=== PATIENT | female | born 1960 | race Caucasian/White ===

== ENCOUNTER 2019-04-25 12:50 | Emergency (ER) | payer MEDICARE, MEDICAID, SELFPAY ==
[2019-04-25 13:07] VITALS: BP 139/107; PULSE 97; RESP 22; O2SAT 99; BMI 21.9
--- NOTE | 2019-04-25 13:08 | W.ED.PSYCH ---
HPI - Psych General: Chief Complaint: Psychiatric Symptoms Stated Complaint: Mhe Time Seen by Provider: 04/25/19 13:08 Source: patient and family Mode of arrival: ambulatory Limitations: no limitations History of Present Illness: HPI Narrative: Patient is a 59-year-old female who presents to ED today with complaints of [id number] stress and anxiety; patient states she is currently going through a divorce and is having trouble with 1 of her apartment neighbors; she tells me she is not suicidal or homicidal; she reports auditory hallucinations that are chronic for her; they have never told her to harm herself or other people; she also has a complaint of extreme itching to her forearms and face that began today MD complaint: other (stress/anxiety ) Onset (ago): month(s) Duration: constant History of same: Yes Relieving factors: none Exacerbating factors: none Associated psychiatric symptoms: auditory hallucinations Associated symptoms: Reports auditory hallucinations; Deny visual hallucinations, depression, homicidal ideation or suicidal ideation Treatments prior to arrival: none Review of Systems Const: Denies: fever or chills Card: Denies: chest pain, palpitations, lightheadedness or syncope Resp: Denies: shortness of breath GI: Denies: abdominal pain, nausea, vomiting or diarrhea Skin/Breast: Denies: rash Neuro: Denies: headache Psych: Reports: anxiety and auditory hallucinations; Denies: depression, mood swings, hopelessness, loss of interest, visual hallucinations, suicidal ideation or homicidal ideation Physical Exam Const: COMMON NORMALS: oriented x3, alert and well nourished (appears very anxious ) GENERAL APPEARANCE: cooperative ORIENTATION/CONSCIOUSNESS: Yes oriented to person, Yes oriented to place and Yes oriented to time Neuro: ELLEN COMA SCALE: document GCS findings Ellen coma scale eye opening: Spontaneous [place] coma scale verbal response: Orientated [place] coma scale motor response: Obey commands [place] coma scale total score: 15 COMMON NORMALS: oriented x3, moves all extremities, no focal motor deficits and no sensory deficits noted SENSORIUM/ORIENTATION: Yes alert, Yes oriented to person, Yes oriented to place, Yes oriented to time and Yes orientation impaired GAIT: Yes normal gait Psych: COMMON NORMALS: thought process normal, cooperative, speech normal, activity/motor behavior normal (uncontrollably scratching her arms/face), denies homicidal ideation and denies suicidal ideation APPEARANCE: Yes unkempt ATTITUDE: Yes engaged ACTIVITY/MOTOR BEHAVIOR: Yes appropriate eye contact SPEECH: Yes normal speech THOUGHT PROCESS: normal thought process ATTENTION/CONCENTRATION: Yes attention grossly intact MEMORY/COGNITION: Yes memory grossly intact INSIGHT: insight good Skin: NARRATIVE SKIN EXAM: pt is uncontrollably itching her face and forearms; diffuse excoriations noted; no distinguishable rash MDM - Psych MDM Narrative: Medical decision making narrative: during our exam I mentioned that most likely we will not be able to send pt to [facility] based on her complaint of stress/anxiety; explained to her that she would not meet inpatient criteria but that we would be more than happy to treat her anxiety and her itching here in the ED; patient became aggravated and walked out of the room and left AMA Discharge Plan Discharge Patient Disposition: Left Against Medical Advice Condition: Stable Referrals: Romel Phillips APN [Family Provider] - Coding Level of Care Code ED Laser Cutter for Dario Gilbert Exam Problem Focused
== END 2019-04-25 13:18 | disposition left against medical advice (07) ==
LOC: ER 19:53
PROVIDERS: Emergency Provider Emergency Medicine; Family Provider Nurse Practitioner Family
DX: F41.9 Anxiety disorder, unspecified (principal); Z53.21 Procedure and treatment not carried out due to patient leaving prior to being seen by health care provider
CPT/HCPCS: 99281

== ENCOUNTER → 2019-05-16 11:10 | Outpatient (BNVA) | payer MEDICARE, MEDICAID, SELFPAY | PROVIDERS: Family Provider Nurse Practitioner Family; Visit Provider Nurse Practitioner | DX: F10.21 Alcohol dependence, in remission (principal); F43.12 Post-traumatic stress disorder, chronic; F17.220 Nicotine dependence, chewing tobacco, uncomplicated | CPT/HCPCS: 99214 ==

== ENCOUNTER 2019-06-16 08:01 | Emergency (ER) | payer MEDICARE, MEDICAID, SELFPAY ==
[2019-06-16 08:17] VITALS: BMI 23.3
[2019-06-16 08:19] VITALS: BP 102/68; PULSE 77; RESP 16; TEMP 36.8; O2SAT 98
--- NOTE | 2019-06-16 08:28 | ED_ITS ---
Entered by Saeed White, acting as scribe for Jun 16, 2019 08:01 HPI - General Adult General: Chief complaint: General Medical Stated complaint: FALL, AMS Time Seen by Provider: 06/16/19 08:52 History of Present Illness: HPI narrative: 59 yo female presents with altered mental status and fall. Pt states that she fell at about 11pm last night. Pt states that she isn't sure if she lost consciousness. Pt states that she hit her head, back and right rib pain. Pt states that she has fallen many times in the past. Pt states that she is seeing and hearing things that are not there. Pt states that she isn't doing too well right now. Pt states that she is taking all of her medications appropriately. MD complaint: altered mental status and fall Onset (ago): hour(s) Location: head and back Radiation: non-radiation Severity: mild Quality: aching Pain Consistency: constant Relieving factors: none Exacerbating factors: movement Associated symptoms: Reports headache(s); Deny chest pain, dyspnea, malaise, nausea, rash or vomiting Review of Systems Const: Denies: fever, chills, body aches, change in appetite, fatigue or malaise ENMT: Denies: throat pain, ear pain, nasal discharge or nasal congestion Card: Denies: chest pain, edema, shortness of breath on exertion or shortness of breath when lying down Resp: Denies: shortness of breath, productive cough or non-productive cough GI: Denies: abdominal pain, nausea, vomiting, vomiting blood, coffee grounds in vomit, diarrhea, constipation, bloating, blood in stool or black tarry stool : Denies: flank pain, difficulty urinating, painful urination, urinary frequency or urinary urgency Musc: Reports: back pain Skin/Breast: Denies: rash or itching Neuro: Reports: headache PFSH ED 2 PFSH: Medical History Alcohol dependence, in remission Nicotine dependence, chewing tobacco, uncomplicated Post-traumatic stress disorder, chronic Social History (Updated 05/16/19 @ 11:24 by Lucretia Pacheco LPN) Smoking and tobacco status: never smoked Alcohol intake: current Alcohol type: beer Desire information about alcohol rehabilitation?: No Last alcohol use date: 05/16/19 Physical Exam Const: COMMON NORMALS: no apparent distress GENERAL APPEARANCE: cooperative and comfortable ORIENTATION/CONSCIOUSNESS: Yes awake, Yes oriented to person, Yes oriented to place and Yes oriented to time HENMT: COMMON NORMALS: normocephalic, head/scalp atraumatic, hearing grossly normal bilaterally, external ears normal, EAC's normal, TM's normal bilaterally, nasal mucous membranes and turbinates normal, moist oral mucous membranes and oropharynx normal HEAD & SCALP: normocephalic and atraumatic NOSE: nasal mucous membranes and turbinates normal EXTERNAL EAR: Yes external ears normal EXTERNAL AUDITORY CANAL: EAC's normal TYMPANIC MEMBRANE: TM's normal bilaterally Eye: COMMON NORMALS: PERRL, EOMs intact bilaterally, conjunctivae normal and no scleral icterus CONJUNCTIVA: Yes conjunctivae normal PUPIL: Yes PERRL Neck/C-Spine: COMMON NORMALS: full ROM, no lymphadenopathy, supple and no JVD Lymph: LYMPHATIC: no lymphadenopathy noted and no lymphedema noted Resp: COMMON NORMALS: normal respiratory effort, no retractions, no use of accessory muscles and clear to auscultation bilaterally AUSCULTATION: clear to auscultation bilaterally Cardio: COMMON NORMALS: no JVD, regular rate, regular rhythm and no murmurs RATE: regular rate RHYTHM: regular rhythm GI: COMMON NORMALS: soft to palpation and no hepatosplenomegaly AUSCULTATION: Yes normoactive bowel sounds PALPATION: Yes soft, No tender, No guarding and Yes no hepatosplenomegaly Extremity: COMMON NORMALS: normal to inspection, normal capillary refill, no clubbing, cyanosis or edema, no calf tenderness and no pedal edema Neuro: SENSORIUM/ORIENTATION: Yes oriented to person, Yes oriented to place and Yes oriented to time Skin: COMMON NORMALS: no rashes or lesions noted GENERAL SKIN EXAM: no rashes or lesions noted Course ED course: Reviewed findings with patient she is acutely intoxicated but otherwise exam is normal. We will go and discharge her home strongly encouraged her to stop drinking. Return if has problems Vital Signs: Vital signs: Vital Signs Temperature 98.2 F 06/16/19 08:19 Pulse Rate 78 06/16/19 10:57 Respiratory Rate 16 06/16/19 10:57 Blood Pressure 100/61 06/16/19 10:57 Pulse Oximetry 97 06/16/19 10:57 [facility] - General Adult Lab Data: Labs: Lab Results 06/16/19 06/16/19 06/16/19 Range/Units 08:55 08:55 10:10 WBC 5.0 (4.0-10.0) 10^3/ uL RBC 3.63 L (4.1-5.3) 10^6/u L Hgb 10.7 L (11.5-15.3) g/dL Hct 34.4 L (37.0-47.0) % MCV 94.8 (81-99) fL MCH 29.5 (28.0-34.0) pg MCHC 31.1 (30.0-36.0) g/dL RDW 13.2 (12.1-15.1) % Plt Count 343 (130-400) 10^3/c mm MPV 8.7 (7.4-10.4) fL Neut % (Auto) 46.7 % Lymph % (Auto) 44.3 % Carroll % (Auto) 6.4 % Eos % (Auto) 1.6 % Baso % (Auto) 0.8 % Neut # (Auto) 2.3 (1.8-7.7) 10^3/u L Lymph # (Auto) 2.2 (0.8-4.8) 10^3/u L Carroll # (Auto) 0.3 (0.2-0.9) 10^3/u L Eos # (Auto) 0.1 (0.0-0.8) 10^3/u L Baso # (Auto) 0.0 (0.0-0.1) 10^3/u L Nucleated RBC % (a uto) 0 % Nucleated RBCs # 0.0 /100WBC Sodium 141 (136-145) mmol/L Potassium 4.5 (3.5-5.1) mmol/L Chloride 107 (98-107) mmol/L Carbon Dioxide 24 (22-29) mmol/L Anion Gap 14.5 (5-19) BUN 6 L (8-23) mg/dL Creatinine 0.7 (0.5-0.9) mg/dL GFR Calculation 85.1 L (90-130) mL/min Glucose 114 (65-115) mg/dL Calcium 11.2 H (8.5-10.5) mg/dL Total Bilirubin 0.2 (0.15-1.2) mg/dL AST 25 (0-32) U/L ALT 21 (0-33) U/L Alkaline Phosphata se 116 H (35-105) IU/L Total Protein 7.5 (6.6-8.7) g/dL Albumin 4.0 (3.5-5.2) g/dL Globulin 3.5 (1.3-4.6) g/dL TSH 2.49 (0.27-4.20) uIU/ mL Urine Color Straw (Yellow) Urine Appearance Clear (CLEAR) Urine pH 5.0 (5-7) Ur Specific Gravit y 1.005 (1.005-1.030) Urine Protein Neg (Negative) Urine Glucose (UA) Norm (Normal) Urine Ketones Negative (Negative) Urine Blood Neg (Negative) Urine Nitrate Negative (Negative) Urine Bilirubin Neg (NEGATIVE) Urine Urobilinogen Norm (Negative) mg/dL Ur Leukocyte Breana ase Negative (Negative) Urine Opiates Scre en (Negative) ng/mL Acetaminophen < 5.0 L (10-30) ug/mL Ur Barbiturates Sc reen (Negative) ng/mL Ur Phencyclidine S crn (Negative) ng/mL Ur Amphetamines Sc reen (Negative) ng/mL U Benzodiazepines Scrn (Negative) ng/mL Urine Cocaine Scre en (Negative) ng/mL U Marijuana (THC) Screen (Negative) ng/mL Ethyl Alcohol 220 H (0-10) mg/dL 06/16/19 Range/Units 10:10 WBC (4.0-10.0) 10^3/ uL RBC (4.1-5.3) 10^6/u L Hgb (11.5-15.3) g/dL Hct (37.0-47.0) % MCV (81-99) fL MCH (28.0-34.0) pg MCHC (30.0-36.0) g/dL RDW (12.1-15.1) % Plt Count (130-400) 10^3/c mm MPV (7.4-10.4) fL Neut % (Auto) % Lymph % (Auto) % Carroll % (Auto) % Eos % (Auto) % Baso % (Auto) % Neut # (Auto) (1.8-7.7) 10^3/u L Lymph # (Auto) (0.8-4.8) 10^3/u L Carroll # (Auto) (0.2-0.9) 10^3/u L Eos # (Auto) (0.0-0.8) 10^3/u L Baso # (Auto) (0.0-0.1) 10^3/u L Nucleated RBC % (a uto) % Nucleated RBCs # /100WBC Sodium (136-145) mmol/L Potassium (3.5-5.1) mmol/L Chloride (98-107) mmol/L Carbon Dioxide (22-29) mmol/L Anion Gap (5-19) BUN (8-23) mg/dL Creatinine (0.5-0.9) mg/dL GFR Calculation (90-130) mL/min Glucose (65-115) mg/dL Calcium (8.5-10.5) mg/dL Total Bilirubin (0.15-1.2) mg/dL AST (0-32) U/L ALT (0-33) U/L Alkaline Phosphata se (35-105) IU/L Total Protein (6.6-8.7) g/dL Albumin (3.5-5.2) g/dL Globulin (1.3-4.6) g/dL TSH (0.27-4.20) uIU/ mL Urine Color (Yellow) Urine Appearance (CLEAR) Urine pH (5-7) Ur Specific Gravit y (1.005-1.030) Urine Protein (Negative) Urine Glucose (UA) (Normal) Urine Ketones (Negative) Urine Blood (Negative) Urine Nitrate (Negative) Urine Bilirubin (NEGATIVE) Urine Urobilinogen (Negative) mg/dL Ur Leukocyte Breana ase (Negative) Urine Opiates Scre en Negative (Negative) ng/mL Acetaminophen (10-30) ug/mL Ur Barbiturates Sc reen Negative (Negative) ng/mL Ur Phencyclidine S crn Negative (Negative) ng/mL Ur Amphetamines Sc reen Negative (Negative) ng/mL U Benzodiazepines Scrn Negative (Negative) ng/mL Urine Cocaine Scre en Negative (Negative) ng/mL U Marijuana (THC) Screen Negative (Negative) ng/mL Ethyl Alcohol (0-10) mg/dL Discharge Plan Discharge Patient Disposition: Home, Self-Care Clinical Impression: Acute alcohol intoxication Condition: Stable Prescriptions: No Action clonidine HCl 0.1 mg tablet 0.1 mg PO DIRECTED PRN (Reason: unknown) RF: 0 pantoprazole 40 mg tablet,delayed release (DR/EC) 40 mg PO DAILY RF: 0 aspirin [Adult Aspirin Regimen] 81 mg tablet,delayed release (DR/EC) 81 mg PO DAILY RF: 0 venlafaxine [Effexor XR] 75 mg capsule,extended release 24hr 75 mg PO QAM Qty: 30 RF: 2 venlafaxine [Effexor XR] 150 mg capsule,extended release 24hr 150 mg PO QAM Qty: 30 RF: 2 Latuda 80 mg tablet 80 mg PO QAM Qty: 30 RF: 2 Zofran 4 mg Tablet 4 mg PO Q4H PRN (Reason: Nausea) RF: 0 hydroxyzine HCl 50 mg tablet 25 - 50 mg PO Q6H PRN (Reason: unknown) RF: 0 cyproheptadine 4 mg tablet 4 mg PO BEDTIME RF: 0 folic acid 1 mg Tablet 1 mg PO DAILY RF: 0 Hair,Skin and Nails Tablet 1 tab PO DAILY RF: 0 Flonase Allergy Relief 50 mcg/actuation [place],Suspension 2 spray INTRANASAL DAILY RF: 0 estradiol 0.1 mg/24 hr patch weekly 1 patch transdermal Q7D RF: 0 prazosin 2 mg Capsule 2 mg PO BEDTIME RF: 0 naproxen 500 mg Tablet 500 mg PO BID PRN (Reason: Pain) RF: 0 olmesartan 40 mg Tablet 40 mg PO DAILY RF: 0 Vitamin D3 25 mcg (1,000 unit) Tablet 1,000 unit PO DAILY RF: 0 Calcium 500 With D 500 mg(1,250mg) -400 unit Tablet 1 tab PO DAILY RF: 0 Symbicort 160-4.5 mcg/actuation Hfa Aerosol Inhaler 2 puff INHALATION BID RF: 0 biotin 1 tab PO DAILY RF: 0 vitamin K 100 mcg PO DAILY RF: 0 Lamictal 200 mg tablet 200 mg PO DAILY RF: 0 naltrexone 50 mg tablet 50 mg PO DAILY RF: 0 Discharge Orders: Discharge Order (Routine); Ordered 06/16/19 Ordered By: Ash Gonzalez Referrals: Sari Regalado MD [Primary Care Provider] - Jacqueline,Urena, [employer] PSYCHOLOGIST [Family Provider] - Discharge Diet: Usual diet Discharge Activity: Increase activity as tolerated Activity Restrictions/Additional Instructions: Avoid alcohol use. Continue previously prescribed medications. Follow-up as needed if having worsening or change or problems return to the emergency room Discharge Date/Time: 06/16/19 10:58 Coding Level of Care Code ED Sifting Operator for Chg Fwd Exam Comprehensive The documentation recorded by the Christopher stratton Kialy, accurately reflects the service I personally performed and the decisions made by Carlos york Curtis L, Jun 16, 2019 08:01
[2019-06-16 09:00] VITALS: O2SAT 98
--- NOTE | 2019-06-16 09:21 | XR_ITS ---
WS: [id number] Chest with right rib detail, 06/16/2019 Clinical Data: fall rib pain Comparison: Portable chest, 03/16/2019. Findings: The lungs show no nodules, masses, or effusions. The heart is normal. No pneumonia or pneumothorax is seen. There is a dextroscoliosis of the thoracic spine. The ribs are intact. No rib fractures seen. No subcutaneous emphysema is present. No pneumothorax is present. XR/XR ribs RT mn 3V w CXR1V [id number] Impression: Negative chest with right rib detail.
--- NOTE | 2019-06-16 09:21 | CT_ITS ---
WS: [id number] CT scan of the head, 06/16/2019 Clinical Data: fall, closed head injury, LOC Comparison: CT head, 06/11/2017. DLP: 650.[address] scans at [facility] use at least one of these dose optimization techniques: automat ed exposure control; mA and/or kV adjustment per patient size (includes targeted exams where dose is matched to clinical indication); or iterative reconstruction. Findings: The ventricular system is mildly dilated without shift. No recent infarct or hemorrhage is seen. Ther e are no abnormal intracerebral masses. The cerebellum and brainstem are not remarkable. Bony windows of the skull and skull base show no fractures or erosions. The mastoid air cells, culinary intern al auditory canals, sella turcica, intraorbital contents, and paranasal sinuses are unremarkable. CT/CT head wo con* [id number] Impression: Negative CT scan of the head
--- NOTE | 2019-06-16 09:21 | XR_ITS ---
WS: [id number] Right arm and humerus, 2 views, 06/16/2019 Clinical Data: fall arm pain Comparison: None. Findings: No fractures or dislocations are seen. The shaft of the humerus is intact. XR/[place] [id number] Impression: Negative right arm and humerus.
[2019-06-16 09:38] LABS: Basophils % 0.8 %; Eosinophils # 0.1 10^3/uL (0.0-0.8); Eosinophils % 1.6 %; Hematocrit 34.4 % (37.0-47.0); Hemoglobin 10.7 g/dL (11.5-15.3); Lymphocytes # 2.2 10^3/uL (0.8-4.8); Lymphocytes % 44.3 %; Mean Corpuscular HGB Conc 31.1 g/dL (30.0-36.0); Mean Corpuscular Hemoglobin 29.5 pg (28.0-34.0); Mean Corpuscular Volume 94.8 fL (81-99); Mean Platelet Volume 8.7 fL (7.4-10.4); Monocytes # 0.3 10^3/uL (0.2-0.9); Monocytes % 6.4 %; Neutrophils # 2.3 10^3/uL (1.8-7.7); Neutrophils % 46.7 %; Nucleated Red Blood Cells % 0 %; Platelet Count 343 10^3/cmm (130-400); Red Blood Count 3.63 10^6/uL (4.1-5.3); Red Cell Distribution Width 13.2 % (12.1-15.1)
[2019-06-16 09:50] LABS: Alanine Aminotransferase 21 U/L (0-33); Alcohol Level 220 mg/dL (0-10); Alkaline Phosphatase 116 IU/L (35-105); Anion Gap 14.5 (5-19); Aspartate Amino Transferase 25 U/L (0-32); Blood Urea Nitrogen 6 mg/dL (8-23); Calcium 11.2 mg/dL (8.5-10.5); Carbon Dioxide 24 mmol/L (22-29); Chloride 107 mmol/L (98-107); Globulin 3.5 g/dL (1.3-4.6); Glomerular Filtration Rate 85.1 mL/min (90-130); Glucose 114 mg/dL (65-115); Potassium 4.5 mmol/L (3.5-5.1); Sodium 141 mmol/L (136-145); Thyroid Stimulating Hormone 2.49 uIU/mL (0.27-4.20); Total Bilirubin 0.2 mg/dL (0.15-1.2); Total Protein 7.5 g/dL (6.6-8.7)
[2019-06-16 09:51] LABS: Acetaminophen < 5.0 ug/mL (10-30)
[2019-06-16 10:22] LABS: Add Urine Microscopic? NO
[2019-06-16 10:33] LABS: Bilirubin Urine Neg (NEGATIVE); Blood Urine Neg (Negative); Glucose Urine UA Norm (Normal); Ketones Urine Negative (Negative); Leukocyte Esterase Urine Negative (Negative); Nitrate Urine Negative (Negative); Protein Urine Neg (Negative); Specific Gravity, Urine 1.005 (1.005-1.030); Urine Appearance Clear (CLEAR); Urine Color Straw (Yellow); Urobilinogen Urine Norm (Negative)
[2019-06-16 10:54] LABS: Amphetamines Screen Urine Negative (Negative); Barbiturates Screen Urine Negative (Negative); Benzodiazepines Screen Urine Negative (Negative); Cocaine Screen Urine Negative (Negative); Opiate Screen Urine Negative (Negative); PCP Screen Urine Negative (Negative); THC Screen Urine Negative (Negative)
[2019-06-16 10:57] VITALS: BP 100/61; PULSE 78; RESP 16; O2SAT 97
== END 2019-06-16 10:58 | disposition home or self-care (01) ==
PROVIDERS: Emergency Provider Family Medicine; Family Provider Nurse Practitioner Family; PCP Family Medicine
DX: F10.129 Alcohol abuse with intoxication, unspecified (principal); Z87.891 Personal history of nicotine dependence; Z91.81 History of falling
CPT/HCPCS: 70450; 71101; 73060; 80053; 80307; 81003; 84443; 85025; 99283; A9270

== ENCOUNTER → 2019-09-27 07:39 | Outpatient (BNVA) | payer MEDICARE, MEDICAID, SELFPAY | PROVIDERS: Family Provider Nurse Practitioner Family; PCP Family Medicine; Visit Provider Nurse Practitioner | DX: F43.12 Post-traumatic stress disorder, chronic (principal); F17.220 Nicotine dependence, chewing tobacco, uncomplicated; F10.21 Alcohol dependence, in remission; F41.1 Generalized anxiety disorder | CPT/HCPCS: 99213 ==

== ENCOUNTER → 2020-04-03 09:59 | Outpatient (BNVA) | payer MEDICARE, MEDICAID, SELFPAY | PROVIDERS: Family Provider Nurse Practitioner Family; PCP Family Medicine; Visit Provider Nurse Practitioner | DX: F43.12 Post-traumatic stress disorder, chronic (principal); F10.21 Alcohol dependence, in remission; F17.220 Nicotine dependence, chewing tobacco, uncomplicated | CPT/HCPCS: 99214 ==

== ENCOUNTER → 2020-06-11 07:30 | Outpatient (BNVA) | payer MEDICARE, MEDICAID, SELFPAY | PROVIDERS: Family Provider Nurse Practitioner Family; PCP Family Medicine; Visit Provider Nurse Practitioner | DX: F43.12 Post-traumatic stress disorder, chronic (principal); F10.21 Alcohol dependence, in remission; F17.220 Nicotine dependence, chewing tobacco, uncomplicated | CPT/HCPCS: 99214 ==

== ENCOUNTER → 2020-11-01 08:55 | Outpatient (BNVA) | payer MEDICARE, MEDICAID, SELFPAY | PROVIDERS: Family Provider Nurse Practitioner Family; PCP Family Medicine; Visit Provider Nurse Practitioner | DX: F43.12 Post-traumatic stress disorder, chronic (principal); F17.220 Nicotine dependence, chewing tobacco, uncomplicated; F10.21 Alcohol dependence, in remission | CPT/HCPCS: 99214 ==

== ENCOUNTER 2021-01-19 07:42 | Outpatient (CLI) | payer MEDICARE, MEDICAID, SELFPAY ==
--- NOTE | 2021-01-19 07:51 | US_ITS ---
WS: [id number] Complete ABDOMINAL ULTRASOUND HISTORY: ELEVATED LIVER ENZYMES COMPARISON: None available. Liver: 13.2 cm in length. Liver is normal size and echogenicity with no mass or intrahepatic dilatati on. Gallbladder: Normally distended with no gallstones, wall thickening or pericholecystic fluid. Gallbladder wall thickness: 0.2 cm. Pancreas: Normal size and echogenicity. CBD: 0.2 cm. Right kidney: 10.1 cm x 3.4 cm x 4.8 cm. No mass, cortical thickening or hydronephrosis. Left kidney: 9.8 cm x 4.4 cm x 4.3 cm. No mass, cortical thickening or hydronephrosis. Spleen: Normal size and echogenicity. Abdominal aorta and IVC are within normal limits. No ascites. US/US abdomen complete* [id number] IMPRESSION: Normal complete abdomen ultrasound.
== END 2021-01-19 07:43 | disposition home or self-care (01) ==
PROVIDERS: PCP Nurse Practitioner Family; Visit Provider Nurse Practitioner Family
DX: R94.5 Abnormal results of liver function studies (principal); F10.10 Alcohol abuse, uncomplicated
CPT/HCPCS: 76700

== ENCOUNTER → 2021-05-06 08:04 | Outpatient (BNVA) | payer MEDICARE, MEDICAID, SELFPAY | PROVIDERS: PCP Nurse Practitioner Family; Visit Provider Nurse Practitioner | DX: F43.12 Post-traumatic stress disorder, chronic (principal); F17.220 Nicotine dependence, chewing tobacco, uncomplicated; F10.21 Alcohol dependence, in remission | CPT/HCPCS: 99214 ==

== ENCOUNTER → 2021-08-05 07:24 | Outpatient (BNVA) | payer MEDICARE, MEDICAID, SELFPAY | PROVIDERS: PCP Nurse Practitioner Family; Visit Provider Nurse Practitioner | DX: F43.12 Post-traumatic stress disorder, chronic (principal); F10.21 Alcohol dependence, in remission; F17.220 Nicotine dependence, chewing tobacco, uncomplicated | CPT/HCPCS: 99214 ==

== ENCOUNTER 2021-09-12 11:41 | Outpatient (CLI) | payer MEDICARE, MEDICAID, SELFPAY ==
--- NOTE | 2021-09-12 11:52 | US_ITS ---
WS: [id number] Complete ABDOMINAL ULTRASOUND HISTORY: ELEVATED LIVER ENZYMES/ALCOHOL ABUSE COMPARISON: 2020 Liver: 12.6 cm in length. Liver is normal size and echogenicity with no mass or intrahepatic dilatati on. Portal Vein: Not well visualized. Limited Doppler evaluation. Gallbladder: Normally distended with no gallstones, wall thickening or pericholecystic fluid. Gallbladder wall thickness: 0.1 cm. Pancreas: Tail is obscured by bowel gas. Head and body are negative. CBD: 0.3 cm. Right kidney: 10.9 cm x 5.1 cm x 5.8 cm. No mass, cortical thickening or hydronephrosis. Left kidney: 9.9 cm x 4.6 cm x 4.5 cm. No mass, cortical thickening or hydronephrosis. Spleen: Partially visualized. Obscured by bowel gas. Abdominal aorta and IVC are within normal limits. No ascites. US/US abdomen complete* [id number] IMPRESSION: 1. Normal gallbladder. 2. Limited visualization of the portal vein, pancreas and spleen. 3. Otherwise negative.
== END 2021-09-12 11:42 | disposition home or self-care (01) ==
PROVIDERS: PCP Nurse Practitioner Family; Visit Provider Nurse Practitioner Family
DX: R79.89 Other specified abnormal findings of blood chemistry (principal); F10.10 Alcohol abuse, uncomplicated
CPT/HCPCS: 76700

== ENCOUNTER 2021-09-19 08:35 | Outpatient (CLI) | payer MEDICARE, MEDICAID, SELFPAY ==
--- NOTE | 2021-09-19 08:54 | XRR_ITS ---
PROCEDURE INFORMATION: Exam: XR Lumbosacral Spine Exam date and time: 09/19/2021 9:06 AM Age: 61 years old Clinical indication: Pain; Lumbago with sciatica; Right; Additional info: Acute right sided low back pain w/r sided sciatica TECHNIQUE: Imaging protocol: XR of the lumbosacral spine. Views: 2 or 3 views. COMPARISON: [place] [id number] 06/11/2017 3:06 AM FINDINGS: Bones/joints: Spinal alignment is normal. There are subtle chronic compression deformities of L5 and L2, stable since 2018. No acute fracture. There is mild multilevel facet spondylosis. Moderate lower lumbar degenerative disc disease. The visible portion of the pelvis and sacrum is intact. Soft tissues: Visible soft tissues are unremarkable. XR/XR lumbar spine 2-3V* [id number] IMPRESSION: Lumbar disc and facet degeneration similar to the findings on 06/11/2017.
--- NOTE | 2021-09-19 09:11 | XRR_ITS ---
PROCEDURE INFORMATION: Exam: XR Right Hip Exam date and time: 09/19/2021 9:13 AM Age: 61 years old Clinical indication: Hip pain; Right hip; Additional info: Right hip pain TECHNIQUE: Imaging protocol: XR Right hip. Views: 1 view hip with pelvis when performed. COMPARISON: CT Chest/Abdomen/Pelvis w IV* 06/11/2017 3:11 AM FINDINGS: Bones/joints: Alignment is normal. Joint spaces are preserved. No osteophytes. No acute fracture. The visible portion of the pelvis and sacrum is intact. Soft tissues: Visible soft tissues are unremarkable. XR/XR hip RT 2-3V wo/w pel* [id number] IMPRESSION: No pathologic findings.
== END 2021-09-19 08:36 | disposition home or self-care (01) ==
LOC: RAD 08:37
PROVIDERS: PCP Nurse Practitioner Family; Visit Provider Nurse Practitioner Family
DX: M25.551 Pain in right hip (principal); M54.41 Lumbago with sciatica, right side
CPT/HCPCS: 72100; 73502

== ENCOUNTER → 2021-09-26 07:50 | Outpatient (BNVA) | payer MEDICARE, MEDICAID, SELFPAY | PROVIDERS: PCP Nurse Practitioner Family; Referring Provider Nurse Practitioner Family; Visit Provider Orthopaedic Surgery | DX: M48.062 Spinal stenosis, lumbar region with neurogenic claudication (principal); M85.88 Other specified disorders of bone density and structure, other site; M43.16 Spondylolisthesis, lumbar region | CPT/HCPCS: 72120; 99204 ==

== ENCOUNTER 2021-09-30 09:47 | Observation (INO) | payer MEDICARE, MEDICAID, SELFPAY ==
[2021-09-30] VITALS (9 sets, daily range): BP systolic 91–127; BP diastolic 60–81; PULSE 65–79; RESP 12–18; TEMP 36.4–37; O2SAT 97–100; BMI 24.8
--- NOTE | 2021-09-30 10:10 | W.ED.GIBLEED ---
Documented by User: MINOO Drummond 09/30/21 13:52 HPI - GI Bleed General: Chief complaint: GI Bleed Stated complaint: Says she had rectal bleeding Time Seen by Provider: 09/30/21 10:00 Source: patient Mode of arrival: ambulatory Limitations: no limitations History of Present Illness: Patient is a 61-year-old female presents to ED today along with her daughter for concerns of rectal bleeding. Patient states she has had minimal rectal bleeding over the past week or so. She met with her primary care provider last week who scheduled her for colonoscopy. This has been scheduled for 10/16. She states over the past 4 days bleeding has increased and now describes as bright red blood and quantifies as 6-10 ounces per stooling and states she is having approximately 4 of these a day. Patient does describe some minimal generalized abdominal discomforts that are intermittent and crampy in nature. Patient is not having any rectal pain. She has not noticed any masses or bulges. Patient is not running fevers. She does have a history of previous colon polyp removals that were benign. She does have a history of diverticulitis. Reports previous GI/gastric bleed 8 years ago that presented with epigastric pain and dark tarry stools. She states she takes Prilosec and Protonix daily. MD complaint: gross hematochezia Onset (ago): day(s) Severity: mild Exacerbating factors: bowel movement Context: history of GI bleed Associated symptoms: Reports abdominal pain and nausea; Denies chills, fever(s), headache(s), malaise, rash, syncope or vomiting Treatments Prior to Arrival: none Review of Systems Const: Denies: fever(s), chills, body aches, fatigue or malaise Eyes: Denies: change in vision or blurry vision Card: Denies: chest pain, palpitations, irregular heart rhythm, lightheadedness, syncope or dyspnea on exertion Resp: Denies: dyspnea, productive cough or pain on inspiration GI: Reports: abdominal pain, nausea, GI cramping and hematochezia; Denies: vomiting, hematemesis, heartburn, diarrhea, constipation, rectal pain, rectal swelling, rectal itching, melena, white/light colored stool or steatorrhea : Denies: flank pain, dysuria or hematuria Musc: Denies: neck pain, back pain or joint pain Skin/Breast: Denies: rash Neuro: Denies: headache(s) or dizziness PFSH ED PFSH: Medical History (Updated 09/30/21 @ 15:58 by Ralf De Souza MD) Alcohol dependence, in remission Lumbar stenosis with neurogenic claudication Lyme disease Nicotine dependence, chewing tobacco, uncomplicated Post-traumatic stress disorder, chronic Rectal bleeding Family History (Updated 09/30/21 @ 15:58 by Ralf De Souza MD) Other Cancer Crohn disease Social History (Updated 09/30/21 @ 15:59 by Ralf De Souza MD) Smoking and tobacco status: current every day smoker smokeless tobacco Smokeless tobacco user: chewing tobacco Smokeless tobacco details: 3x per day Quit status (tobacco): considering quitting Alcohol intake: current Alcohol type: beer Desire information about alcohol rehabilitation?: No Last alcohol use date: 05/16/19 Lives independently: Yes Housing: Apartment Physical Exam Const: COMMON NORMALS: no acute distress, average body habitus, patient oriented x3, no limitations, alert and well nourished GENERAL APPEARANCE: cooperative ORIENTATION/CONSCIOUSNESS: Yes awake, Yes oriented to person, Yes oriented to place and Yes oriented to time HENMT: COMMON NORMALS: normocephalic and atraumatic HEAD & SCALP: normal to inspection, normocephalic and atraumatic Resp: COMMON NORMALS: normal respiratory effort EFFORT & INSPECTION: Yes able to speak in complete sentences Cardio: COMMON NORMALS: regular rate and regular rhythm RATE: regular rate RHYTHM: regular rhythm GI: COMMON NORMALS: Normal to inspection, nondistended, normoactive bowel sounds present, Soft to palpation, No hepatosplenomegaly present and no masses INSPECTION: Yes normal to inspection AUSCULTATION: Yes normoactive bowel sounds PALPATION: Yes Soft to palpation, Yes Tenderness to palpation present (GI) (mild diffusely-non surgical exam), No Guarding due to palpation present (GI), No Rigid due to palpation and Yes No hepatosplenomegaly present RECTAL EXAM: visual inspection normal, normal sphincter tone, heme positive stool, No External hemorrhoid(s) present and No Internal hemorrhoid(s) present : COMMON NORMALS: Yes no CVA tenderness BLADDER/KIDNEY EXAM: Yes no CVA tenderness Back/Pelvis: COMMON NORMALS: no CVA tenderness, thoracic and lumbar spine normal to inspection, no thoracic nor lumbar tenderness and thoraco-lumbar ROM normal Extremity: COMMON NORMALS: normal to inspection GENERAL: Yes normal exam except as noted Neuro: COMMON NORMALS: patient oriented x3, moves all extremities, no focal motor deficits and no sensory deficits noted SENSORIUM/ORIENTATION: Yes alert, Yes oriented to person, Yes oriented to place and Yes oriented to time Skin: COMMON NORMALS: no rashes or lesions noted GENERAL SKIN EXAM: no rashes or lesions noted Course Consultations: Consultation #1: Dr. Friedman-will admit to obs for H/H monitoring Consultation #2: Dr. Hyunh-agrees with current plan to monitor bleeding; colonoscopy would have to be delayed until diverticulitis resolves Vital Signs: Vital signs: Vital Signs Temperature 98.6 F 09/30/21 19:32 Pulse Rate 70 09/30/21 21:26 Respiratory Rate 17 09/30/21 21:26 Blood Pressure 91/60 09/30/21 19:32 Pulse Oximetry 97 09/30/21 21:26 MDM - GI Bleed Medical Decision Making Patient is a nice 61-year-old female here for bright red blood per rectum. She had blood work done at her primary care provider's office on 09/12 which showed a hemoglobin of 12.3. Her hemoglobin is 8.8 today. Patient does have mild diverticulitis as well as a focal stricture involving her descending colon. Spoke to Dr. Bolton and I think the best course at this time would be admission for IV antibiotics and monitoring of H/H. Spoke to Dr. Eason as well as Dr. Huynh who are agreeable to observation to watch hemoglobin. Colonoscopy will have to be delayed until diverticulitis is treated. Lab Data : 09/30/21 10:22 09/30/21 10:22 Radiology Impressions Abdomen/Pelvis CT 09/30/21 10:54 IMPRESSION: 1. Numerous diverticula in the distal colon with a small amount of inflammation surrounding the sigmoid colon. Mild acute diverticulitis suspected. 2. Focal stricture involving the descending colon with very mild submucosal thickening. Recommend further evaluation with colonoscopy. Early neoplasm is not excluded. 3. No free air or abscess or free fluid. 4. No obstructing lesion identified. 5. Prior appendectomy. Laboratory Results WBC 7.3 10^3/uL (4.0-10.0) 09/30/21 10: RBC 3.05 10^6/uL (4.1-5.3) L 09/30/21 10:22 Hgb 8.8 g/dL (11.5-15.3) L 09/30/21 10:22 Hct 26.5 % (37.0-47.0) L 09/30/21 10:22 MCV 86.9 fl (81-99) 09/30/21 10:22 MCH 28.9 pg (28.0-34.0) 09/30/21 10: MCHC 33.2 g/dL (30.0-36.0) 09/30/21 10: RDW 13.9 % (12.1-15.1) 09/30/21 10: Plt Count 315 10^3/cmm (130-400) 09/30/21 10: MPV 8.7 fL (7.4-10.4) 09/30/21 10:22 Neut % (Auto) 59.0 % 09/30/21 10:22 Lymph % (Auto) 31.6 % 09/30/21 10:22 Irion % (Auto) 7.1 % 09/30/21 10:22 Eos % (Auto) 1.5 % 09/30/21 10: Baso % (Auto) 0.5 % 09/30/21: Neut # (Auto) 4.29 10^3/uL (1.8-7.7) 09/30/21 10:22 Lymph # (Auto) 2.3 10^3/uL (0.8-4.8) 09/30/21 10:22 Irion # (Auto) 0.5 10^3/uL (0.2-0.9) 09/30/21 10:22 Eos # (Auto) 0.1 10^3/uL (0.0-0.8) 09/30/21 10: Baso # (Auto) 0.0 10^3/uL (0.0-0.1) 09/30/21 10: Nucleated RBC % (auto) 0 % 09/30/21 10:22 Nucleated RBCs # 0.0 /100WBC 09/30/21 10:22 PT 13.70 SECONDS (12.1-14.9) 09/30/21 10:22 INR 1.02 (0.8-1.2) 09/30/21 10:22 APTT 24.2 SECONDS (23.9-36.7) 09/30/21 10:22 Sodium 136 mmol/L (136-145) 09/30/21 10:22 Potassium 3.7 mmol/L (3.5-5.1) 09/30/21 10:22 Chloride 101 mmol/L (98-107) 09/30/21 10:22 Carbon Dioxide 24 mmol/L (22-29) 09/30/21 10:22 Anion Gap 14.7 (5-19) 09/30/21 10:22 BUN 21 mg/dL (8-23) 09/30/21 10:22 Creatinine 0.7 mg/dL (0.5-0.9) 09/30/21 10:22 GFR Calculation 84.5 mL/min (90-130) L 09/30/21 10:22 Glucose 106 mg/dL (65-115) 09/30/21 10:22 Calculated Osmolality 285 mOsm/kg (285-295) 09/30/21 10:22 Calcium 10.3 mg/dL (8.5-10.5) 09/30/21 10:22 Iron 28 ug/dL (37-145) L 09/30/21 10:22 TIBC 352 mcg/dl 09/30/21 10: % Saturation 7.9 % (20-50) L 09/30/21 10:22 Unsat Iron Binding 324 ug/dL (112-347) 09/30/21 10:22 Total Bilirubin 0.2 mg/dL (0.15-1.2) 09/30/21 10:22 AST 18 U/L (0-32) 09/30/21 10:22 ALT 16 U/L (0-33) 09/30/21 10:22 Alkaline Phosphatase 104 IU/L (35-105) 09/30/21 10:22 Total Protein 7.0 g/dL (6.6-8.7) 09/30/21 10:22 Albumin 4.3 g/dL (3.5-5.2) 09/30/21 10:22 Globulin 2.7 g/dL (1.3-4.6) 09/30/21 10:22 TSH 4.97 uIU/mL (0.27-4.20) H 09/30/21 10:22 Free T4 0.93 ng/dL (0.82-1.77) 09/30/21 10: Free T3 2.2 PG/ML (2.0-4.4) 09/30/21 10:22 Ethyl Alcohol < 10 mg/dL (0-10) 09/30/21 10:22 Blood Type O Positive 09/30/21 12:00 Rho(D) Type Positive 09/30/21 12:00 Antibody Screen Negative 09/30/21 12:00 Discharge Plan Discharge Patient Disposition: Placed in Observation Admit Provider: Ralf De Souza Clinical Impression: Diverticulitis, Bright red blood per rectum Coding Level of Care Code 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 Comprehensive Documented by User: Evin Bolton MD 09/30/21 23:48 HPI - GI Bleed General: Chief complaint: GI Bleed Stated complaint: Says she had rectal bleeding Time Seen by Provider: 09/30/21 10:00 [facility] ED PFSH: Medical History (Updated 09/30/21 @ 15:58 by Ralf De Souza MD) Alcohol dependence, in remission Lumbar stenosis with neurogenic claudication Lyme disease Nicotine dependence, chewing tobacco, uncomplicated Post-traumatic stress disorder, chronic Rectal bleeding Family History (Updated 09/30/21 @ 15:58 by Ralf De Souza MD) Other Cancer Crohn disease Social History (Updated 09/30/21 @ 15:59 by Ralf De Souza MD) Smoking and tobacco status: current every day smoker smokeless tobacco Smokeless tobacco user: chewing tobacco Smokeless tobacco details: 3x per day Quit status (tobacco): considering quitting Alcohol intake: current Alcohol type: beer Desire information about alcohol rehabilitation?: No Last alcohol use date: 05/16/19 Lives independently: Yes Housing: Apartment Course Vital Signs: Vital signs: Vital Signs Temperature 98.6 F 09/30/21 19:32 Pulse Rate 70 09/30/21 21:26 Respiratory Rate 17 09/30/21 21:26 Blood Pressure 91/60 09/30/21 19:32 Pulse Oximetry 97 09/30/21 21:26 MDM - GI Bleed Medical Decision Making Patient is a nice 61-year-old female here for bright red blood per rectum. She had blood work done at her primary care provider's office on 09/12 which showed a hemoglobin of 12.3. Her hemoglobin is 8.8 today. Patient does have mild diverticulitis as well as a focal stricture involving her descending colon. Spoke to Dr. Bolton and I think the best course at this time would be admission for IV antibiotics and monitoring of H/H. Spoke to Dr. Eason as well as Dr. Huynh who are agreeable to observation to watch hemoglobin. Colonoscopy will have to be delayed until diverticulitis is treated. I discussed this case with MINOO Drummond. I have reviewed documentation, laboratory studies, CT imaging. Evin Bolton MD Emergency Medicine Lab Data : 09/30/21 10:22 09/30/21 10:22 Radiology Impressions Abdomen/Pelvis CT 09/30/21 10:54 IMPRESSION: 1. Numerous diverticula in the distal colon with a small amount of inflammation surrounding the sigmoid colon. Mild acute diverticulitis suspected. 2. Focal stricture involving the descending colon with very mild submucosal thickening. Recommend further evaluation with colonoscopy. Early neoplasm is not excluded. 3. No free air or abscess or free fluid. 4. No obstructing lesion identified. 5. Prior appendectomy. Laboratory Results WBC 7.3 10^3/uL (4.0-10.0) 09/30/21 10:22 RBC 3.05 10^6/uL (4.1-5.3) L 09/30/21 10:22 Hgb 8.8 g/dL (11.5-15.3) L 09/30/21 10:22 Hct 26.5 % (37.0-47.0) L 09/30/21 10:22 MCV 86.9 fl (81-99) 09/30/21 10:22 MCH 28.9 pg (28.0-34.0) 09/30/21 10:22 MCHC 33.2 g/dL (30.0-36.0) 09/30/21 10:22 RDW 13.9 % (12.1-15.1) 09/30/21 10:22 Plt Count 315 10^3/cmm (130-400) 09/30/21 10:22 MPV 8.7 fL (7.4-10.4) 09/30/21 10:22 Neut % (Auto) 59.0 % 09/30/21 10:22 Lymph % (Auto) 31.6 % 09/30/21 10:22 Irion % (Auto) 7.1 % 09/30/21 10:22 Eos % (Auto) 1.5 % 09/30/21 10:22 Baso % (Auto) 0.5 % 09/30/21 10: Neut # (Auto) 4.29 10^3/uL (1.8-7.7) 09/30/21 10: Lymph # (Auto) 2.3 10^3/uL (0.8-4.8) 09/30/21 10:22 Irion # (Auto) 0.5 10^3/uL (0.2-0.9) 09/30/21 10:22 Eos # (Auto) 0.1 10^3/uL (0.0-0.8) 09/30/21 10: Baso # (Auto) 0.0 10^3/uL (0.0-0.1) 09/30/21 10:22 Nucleated RBC % (auto) 0 % 09/30/21 10: Nucleated RBCs # 0.0 /100WBC 09/30/21 10:22 PT 13.70 SECONDS (12.1-14.9) 09/30/21 10:22 INR 1.02 (0.8-1.2) 09/30/21 10:22 APTT 24.2 SECONDS (23.9-36.7) 09/30/21 10:22 Sodium 136 mmol/L (136-145) 09/30/21 10:22 Potassium 3.7 mmol/L (3.5-5.1) 09/30/21 10:22 Chloride 101 mmol/L (98-107) 09/30/21 10:22 Carbon Dioxide 24 mmol/L (22-29) 09/30/21 10:22 Anion Gap 14.7 (5-19) 09/30/21 10:22 BUN 21 mg/dL (8-23) 09/30/21 10:22 Creatinine 0.7 mg/dL (0.5-0.9) 09/30/21 10:22 GFR Calculation 84.5 mL/min (90-130) L 09/30/21 10:22 Glucose 106 mg/dL (65-115) 09/30/21 10:22 Calculated Osmolality 285 mOsm/kg (285-295) 09/30/21 10:22 Calcium 10.3 mg/dL (8.5-10.5) 09/30/21 10:22 Iron 28 ug/dL (37-145) L 09/30/21 10: TIBC 352 mcg/dl 09/30/21 10: % Saturation 7.9 % (20-50) L 09/30/21 10: Unsat Iron Binding 324 ug/dL (112-347) 09/30/21 10:22 Total Bilirubin 0.2 mg/dL (0.15-1.2) 09/30/21 10:22 AST 18 U/L (0-32) 09/30/21 10:22 ALT 16 U/L (0-33) 09/30/21 10:22 Alkaline Phosphatase 104 IU/L (35-105) 09/30/21 10:22 Total Protein 7.0 g/dL (6.6-8.7) 09/30/21 10:22 Albumin 4.3 g/dL (3.5-5.2) 09/30/21 10:22 Globulin 2.7 g/dL (1.3-4.6) 09/30/21 10:22 TSH 4.97 uIU/mL (0.27-4.20) H 09/30/21 10:22 Free T4 0.93 ng/dL (0.82-1.77) 09/30/21 10:22 Free T3 2.2 PG/ML (2.0-4.4) 09/30/21 10:22 Ethyl Alcohol < 10 mg/dL (0-10) 09/30/21 10:22 Blood Type O Positive 09/30/21 12:00 Rho(D) Type Positive 09/30/21 12:00 Antibody Screen Negative 09/30/21 12:00 Discharge Plan Discharge Patient Disposition: Placed in Observation Admit Provider: Ralf De Souza Clinical Impression: Diverticulitis, Bright red blood per rectum Coding Level of Care Code 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 Comprehensive
[2021-09-30 10:31] LABS: Basophils % 0.5 %; Eosinophils # 0.1 10^3/uL (0.0-0.8); Eosinophils % 1.5 %; Hematocrit 26.5 % (37.0-47.0); Hemoglobin 8.8 g/dL (11.5-15.3); Lymphocytes # 2.3 10^3/uL (0.8-4.8); Lymphocytes % 31.6 %; Mean Corpuscular HGB Conc 33.2 g/dL (30.0-36.0); Mean Corpuscular Hemoglobin 28.9 pg (28.0-34.0); Mean Corpuscular Volume 86.9 fl (81-99); Mean Platelet Volume 8.7 fL (7.4-10.4); Monocytes # 0.5 10^3/uL (0.2-0.9); Monocytes % 7.1 %; Neutrophils # 4.29 10^3/uL (1.8-7.7); Nucleated Red Blood Cells % 0 %; Platelet Count 315 10^3/cmm (130-400); Red Blood Count 3.05 10^6/uL (4.1-5.3); Red Cell Distribution Width 13.9 % (12.1-15.1); White Blood Count 7.3 10^3/uL (4.0-10.0)
[2021-09-30 10:48] LABS: INR 1.02 (0.8-1.2)
[2021-09-30 10:49] LABS: Partial Thromboplastin Time 24.2 SECONDS (23.9-36.7)
[2021-09-30 10:53] LABS: Alanine Aminotransferase 16 U/L (0-33); Albumin Level 4.3 g/dL (3.5-5.2); Alkaline Phosphatase 104 IU/L (35-105); Anion Gap 14.7 (5-19); Aspartate Amino Transferase 18 U/L (0-32); Blood Urea Nitrogen 21 mg/dL (8-23); Calcium 10.3 mg/dL (8.5-10.5); Carbon Dioxide 24 mmol/L (22-29); Chloride 101 mmol/L (98-107); Globulin 2.7 g/dL (1.3-4.6); Glomerular Filtration Rate 84.5 mL/min (90-130); Glucose 106 mg/dL (65-115); Osmolality Calculated 285 mOsm/kg (285-295); Potassium 3.7 mmol/L (3.5-5.1); Sodium 136 mmol/L (136-145); Total Bilirubin 0.2 mg/dL (0.15-1.2)
--- NOTE | 2021-09-30 10:54 | CT_ITS ---
WS: [id number] CT ABDOMEN AND PELVIS NONCONTRAST HISTORY: GI/rectal bleed; bright red blood per rectum TECHNIQUE: Imaging performed through the abdomen and pelvis. Coronal and sagittal reformats are submi tted. All CT scans at [facility] use at least one of these dose optimization techniques: auto mated exposure control; mA and/or kV adjustment per patient size (includes targeted exams where dose is matched to clinical indication); or iterative reconstruction. DLP: 1292.03 mGy.cm COMPARISON: 09/29/2018 Lower thorax: Benign stable calcifications in the RIGHT lower thorax. Normal size heart. Small hiatal hernia. Liver: Normal size liver. No mass or bile duct dilatation. Gallbladder: Normal gallbladder. Pancreas: Normal size and attenuation. Normal pancreatic duct. No pancreatitis or mass. Spleen: Normal. Adrenal glands: Normal. No mass. Right kidney: Normal size kidney with no mass or hydronephrosis. Left kidney: Normal size kidney with no mass or hydronephrosis. Aorta: Mild atherosclerosis abdominal aorta with no aneurysm. No free fluid, intraperitoneal air or significant lymphadenopathy. GI tract: Normally distended stomach. No small bowel obstruction. There is moderate diffuse fecal ret ention. Numerous diverticula in the sigmoid colon. There is a focal area of narrowing involving a mj rt segment in the distal descending colon with no associated mass. Very minimal submucosal thickening . May be an area of peristalsis or contraction but early neoplasm not excluded. There some very mild inflammation adjacent to the sigmoid colon. Prior appendectomy. Abdominal wall: Small umbilical hernia contains fat only. Pelvis: Well-distended urinary bladder. Prior hysterectomy. Osseous structures: Degenerative disc disease and facet joint arthritis. CT/CT abdomen pelvis wo con [id number] IMPRESSION: 1. Numerous diverticula in the distal colon with a small amount of inflammatio n surrounding the sigmoid colon. Mild acute diverticulitis suspected. 2. Focal stricture involving the descending colon with very mild submucosal th ickening. Recommend further evaluation with colonoscopy. Early neoplasm is not excluded. 3. No free air or abscess or free fluid. 4. No obstructing lesion identified. 5. Prior appendectomy.
[2021-09-30] MEDS: ciprofloxacin 400 MG/200 ML PREMIX 200 MG IV (11:54)
[2021-09-30] MEDS: sodium chloride 0.9% 1,000 ML 999 ML IV (11:58)
[2021-09-30] MEDS: ondansetron 2 mg/ML SDV 2 mL 4 MG IVP ×2 (11:58→17:07)
[2021-09-30] MEDS: metroNIDAZOLE IV 500 MG/100 ML PREMIX 100 MG IV (13:09)
--- NOTE | 2021-09-30 15:55 | P.HP_ITS ---
Providers/Chief Complaint Admitting Physician: Ralf De Souza MD Primary Care Provider: Jacqueline Urena APN Chief Complaint: Says she had rectal bleeding History of Present Illness Tennille Parham is a 61 year old female comes into the ER today with bright red blood per rectum for last 4 days. After the patient she has miguel blood with every bowel movement for 4 days and she has been on 4-5 bowel movements a day. Prior to that she has been having lower abdominal pain for last 2 weeks for which she followed up with a primary care provider 2 weeks ago when she was given Tylenol for back pain. Patient has had similar issues around 8 years ago when she was found to have diverticulitis. Last colonoscopy was few years ago. Patient is not aware about the report. Patient has been scheduled as an outpatient for colonoscopy with Dr. Chatterjee on 10/13. Patient denies of any nausea, vomiting, dizziness, chest pain, difficulty in breathing. She does have a history of alcohol abuse which is in remission. Denies of having any recent alcohol binge. States she takes naproxen once a day for fibromyalgia. Blood work from outside showed a hemoglobin of 12 .7 which was 2weeks ago. On review of chart last hemoglobin in the system is from 2019 which was 10.7. Review of Systems General: Reports: 10 or more systems reviewed and unremarkable except in HPI and below Const: Denies: fever(s), chills, body aches, change in appetite, change in weight, malaise, night sweats, diaphoresis, change in sleep pattern, daytime sleepiness or snoring Eyes: Denies: change in vision, blurry vision, photophobia, eye discomfort or eye discharge ENMT: Denies: throat pain, enlarged tonsils, hoarseness, mouth pain, oral sore s, dry mouth, tinnitus, nasal congestion or post nasal drip Card: Denies: chest pain, palpitations, irregular heart rhythm, edema, swelling of feet/ankles, lightheadedness, syncope, pre-syncope, dyspnea on exertion, orthopnea, leg pain with exertion or acrocyanosis Resp: Denies: dyspnea, productive cough, non-productive cough, wheezing, s tridor, pain on inspiration, change in phlegm color, hemoptysis or chest congestion GI: Denies: abdominal pain, nausea, vomiting, hematemesis, coffee ground emesis, dysphagia, heartburn, diarrhea, constipation, bloating, GI cramping, change in bowel habits, pain on defecation, hematochezia or melena : Denies: flank pain, dysuria, urinary frequency, urinary urgency, urinary hesitancy, nocturia or hematuria Musc: Denies: neck pain, back pain, extremity pain, joint pain, joint swelling, joint redness, joint stiffness or limited range of motion Neuro: Denies: headache(s), numbness in extremities, weakness in extremities, sensory changes, lack of coordination, difficulty walking, frequent falls, dizziness, vertigo, confusion, Slurred speech present, difficulty communicating thoughts or seizure-like activity Psych: Denies: anxiety, depression, mood swings, panic attacks, hopelessness or irritability Endo: Denies: polyuria, polydipsia, tired all the time, cold intolerance, excessive sweating, flushing or heat intolerance Herve/Lymph: Denies: easy bruising or easy bleeding All/Imm: Denies: tongue swelling, facial swelling or acute wheezing Medications/Allergies Home Medications Medication Instructions Recorded Confirmed Last Taken Type pantoprazole 40 mg tablet,delayed 40 mg PO QAM 05/16/19 09/30/21 09/29/21 History release budesonide-formoterol HFA 160 2 puff INHALATION BID 06/16/19 09/30/21 06/16/19 History mcg-4.5 mcg/actuation aerosol inhaler (Symbicort) fluticasone propionate 50 2 spray INTRANASAL DAILY 06/16/19 09/30/21 Unknown History mcg/actuation nasal spray,suspension (Flonase Allergy Relief) naproxen 500 mg tablet 500 mg PO BID PRN 06/16/19 09/30/21 Unknown History olmesartan 40 mg tablet 40 mg PO DAILY@12 06/16/19 09/30/21 09/29/21 History venlafaxine 75 mg capsule,extended 75 mg PO QAM #30 cap 08/05/21 09/30/21 09/29/21 Rx release 24 hr (Effexor XR) gabapentin 300 mg capsule 300 mg PO BID #90 cap 09/26/21 09/30/21 09/29/21 Rx acetaminophen 300 mg-codeine 30 mg 1 tab PO Q4H PRN 09/30/21 09/30/21 Unknown History tablet albuterol sulfate 90 mcg/actuation 2 puff INHALATION QID PRN 09/30/21 09/30/21 Unknown History aerosol inhaler aspirin 81 mg tablet,delayed 81 mg PO DAILY 09/30/21 09/30/21 09/26/21 History release biotin 1 cap PO DAILY 09/30/21 09/30/21 Unknown History epinephrine 0.3 mg/0.3 mL See Rx Instructions .ROUTE .COMPLEX 09/30/21 09/30/21 Unknown History injection, auto-injector (EpiPen 2-Gustabo) estradiol 0.1 mg/24 hr weekly 1 patch TOPICAL Q7D 09/30/21 09/30/21 09/23/21 History transdermal patch hydrocortisone 2.5 % topical cream 1 applic TOPICAL BID 09/30/21 09/30/21 Unknown History with perineal applicator Allergies Allergy/AdvReac Type Severity Reaction Status Date / Time bee venom protein (honey bee) Allergy Unknown Verified 09/30/21 10:58 celery Allergy Unknown Verified 09/30/21 10:58 Sulfa (Sulfonamide Allergy Unknown Verified 09/30/21 10:58 Antibiotics) sumatriptan [From Imitrex] Allergy Unknown Verified 09/30/21 10:58 tramadol Allergy Unknown Verified 09/30/21 10:58 PFSH Acute PFSH: Medical History (Updated 09/30/21 @ 15:58 by Ralf De Souza MD) Alcohol dependence, in remission Lumbar stenosis with neurogenic claudication Lyme disease Nicotine dependence, chewing tobacco, uncomplicated Post-traumatic stress disorder, chronic Rectal bleeding Family History (Updated 09/30/21 @ 15:58 by Ralf De Souza MD) Other Cancer Crohn disease Social History (Updated 09/30/21 @ 15:59 by Ralf De Souza MD) Smoking and tobacco status: current every day smoker smokeless tobacco Smokeless tobacco user: chewing tobacco Smokeless tobacco details: 3x per day Quit status (tobacco): considering quitting Alcohol intake: current Alcohol type: beer Desire information about alcohol rehabilitation?: No Last alcohol use date: 05/16/19 Lives independently: Yes Housing: Apartment Vitals/I&O/Wt Last Vital Signs Temp 97.6 F 09/30/21 09:50 Pulse 67 09/30/21 15:00 Resp 12 09/30/21 15:00 BP 107/69 09/30/21 15:00 Pulse Ox 98 09/30/21 15:00 09/30/21 09/30/21 09/30/21 06:59 14:59 22:59 Intake Total 200 / 200 Balance 200 / 200 Weight last 48 hrs Weight 69.853 kg Physical Exam Narrative: General: No acute distress, AO x3 HEENT: PERRLA, pupils bilaterally equal and reactive Chest: Normal vesicular breath sounds, no added sounds, equal good air entry bilaterally CVS: S1-S2 regular, no murmurs, no tachycardia, no gallops, no rubs Abdomen: Soft, right lower quadrant tenderness, no organomegaly, bowel sounds present Neuro: No focal deficits, no facial deformity, AO x3, power 5/5 in all limbs Data : 09/30/21 10:22 09/30/21 10:22 A&P Assessment and plan (1) Acute blood loss anemia: Secondary to bright red blood per rectum. Monitor hemoglobin daily. Transfuse if below 7. Check iron panel, vitamin B12, folate levels Status: Acute (2) Bright red blood per rectum: Most likely secondary to diverticulitis. Cannot rule out malignancy given finding of focal stricture in descending colon. Does take naproxen daily and has a history of alcohol abuse in the past. Check alcohol level. Protonix 40 mg twice daily. Mechanical soft diet. Carafate before meals and at bedtime. Status: Acute (3) Alcohol dependence, in remission: Check alcohol level. Status: Acute (4) Nicotine dependence, chewing tobacco, uncomplicated: Status: Acute Plan Analgesia: Tylenol as needed Glycemic control: Not needed Nutrition: Mechanical soft diet CODE STATUS: Full code PUD prophylaxis: Protonix DVT prophylaxis: SCDs Discharge planning: Within 24 hours if hemoglobin remains stable. Admit to [facility] with telemetry. Attestations Medical Necessity Statement*: Admission for less than 2 midnights under observation for acute blood loss anemia secondary to bright blood per rectum fr om diverticulitis Time Spent in Patient Care: Greater than 35 minutes Coding Level of Care Code Acute Strain Technician for Chg Fwd Diagnoses Bright red blood per rectum K62.5 Alcohol dependence, in remission F10.21 Nicotine dependence, chewing tobacco, uncomplicated F17.220 Acute blood loss anemia D62
[2021-09-30] MEDS: pantoprazole 40 mg SDV IVP (17:06)
[2021-09-30] MEDS: gabapentin 300 mg Capsule PO (17:07)
[2021-09-30] MEDS: ferrous gluconate 324 mg Tablet PO (17:07)
[2021-09-30] MEDS: magnesium hydroxide 30 mL UDC PO (17:07)
[2021-09-30] MEDS: piperacillin-tazobactam 3.375 GM in sodium chloride 0.9% (plus) 50 ML IV (17:07)
[2021-09-30] MEDS: sucralfate 1 gm/10 mL Oral Liq UDC PO ×2 (17:07→22:33)
[2021-09-30 17:53] LABS: Alcohol Level < 10 mg/dL (0-10)
[2021-09-30 18:02] LABS: Thyroid Stimulating Hormone 4.97 uIU/mL (0.27-4.20)
[2021-09-30 18:21] LABS: Iron 28 ug/dL (37-145); Percent Saturation 7.9 % (20-50); Total Iron Binding Capacity 352 mcg/dl; Unsaturated Iron Binding 324 ug/dL (112-347)
[2021-09-30] MEDS: acetaminophen 325 mg Tablet 650 MG PO (20:21)
[2021-09-30] MEDS: sennosides 8.6 mg Tablet 17.2 MG PO (20:21)
[2021-09-30 22:58] LABS: Free T4 Free Thyroxine 0.93 ng/dL (0.82-1.77); T3 Free 2.2 PG/ML (2.0-4.4)
[2021-10-01] VITALS (23 sets, daily range): BP systolic 89–133; BP diastolic 56–91; PULSE 53–78; RESP 12–18; TEMP 36.4–36.9; O2SAT 94–100
[2021-10-01] MEDS: piperacillin-tazobactam 3.375 GM in sodium chloride 0.9% (plus) 50 ML IV ×3 (01:58→21:14)
[2021-10-01 05:41] LABS: Basophils # 0.1 10^3/uL (0.0-0.1); Basophils % 1.1 %; Eosinophils # 0.2 10^3/uL (0.0-0.8); Eosinophils % 2.7 %; Hematocrit 23.3 % (37.0-47.0); Hemoglobin 7.6 g/dL (11.5-15.3); Lymphocytes # 2.2 10^3/uL (0.8-4.8); Lymphocytes % 39.6 %; Mean Corpuscular HGB Conc 32.6 g/dL (30.0-36.0); Mean Corpuscular Hemoglobin 28.5 pg (28.0-34.0); Mean Corpuscular Volume 87.3 fl (81-99); Monocytes # 0.5 10^3/uL (0.2-0.9); Monocytes % 9.6 %; Neutrophils # 2.64 10^3/uL (1.8-7.7); Neutrophils % 46.6 %; Nucleated Red Blood Cells % 0 %; Platelet Count 253 10^3/cmm (130-400); Red Blood Count 2.67 10^6/uL (4.1-5.3); Red Cell Distribution Width 13.9 % (12.1-15.1); White Blood Count 5.7 10^3/uL (4.0-10.0)
[2021-10-01] MEDS: pantoprazole 40 mg SDV IVP ×2 (05:47→21:14)
[2021-10-01 06:04] LABS: Estmated Average Glucose 123; Hemoglobin A1C 5.9 % (4.0-6.0)
[2021-10-01 06:05] LABS: Alanine Aminotransferase 13 U/L (0-33); Albumin Level 3.5 g/dL (3.5-5.2); Alkaline Phosphatase 84 IU/L (35-105); Anion Gap 12.5 (5-19); Aspartate Amino Transferase 16 U/L (0-32); Blood Urea Nitrogen 9 mg/dL (8-23); Calcium 9.6 mg/dL (8.5-10.5); Carbon Dioxide 24 mmol/L (22-29); Chloride 111 mmol/L (98-107); Chol HDL Ratio 4.58 mg/dL (0.0-4.40); Cholesterol 183 mg/dL (0-200); Globulin 2.4 g/dL (1.3-4.6); Glomerular Filtration Rate 84.5 mL/min (90-130); Glucose 99 mg/dL (65-115); HDL Cholesterol 40 mg/dL (60-100); LDL Cholesterol Calculated 124 mg/dL (50-129); Magnesium 2.1 mg/dL (1.7-2.3); Osmolality Calculated 295 mOsm/kg (285-295); Phosphorus 2.7 mg/dL (2.5-4.5); Potassium 4.5 mmol/L (3.5-5.1); Sodium 143 mmol/L (136-145); Total Bilirubin 0.2 mg/dL (0.15-1.2); Total Protein 5.9 g/dL (6.6-8.7); Triglycerides 97 mg/dL (0-150); VLDL Cholestrol Calculation 19 mg/dL (0-30)
[2021-10-01] MEDS: sucralfate 1 gm/10 mL Oral Liq UDC PO ×4 (06:15→21:14)
[2021-10-01] MEDS: venlafaxine ER (24HR) 75 mg Capsule PO (06:15)
[2021-10-01] MEDS: ondansetron 2 mg/ML SDV 2 mL 4 MG IVP (09:14)
[2021-10-01] MEDS: ferrous gluconate 324 mg Tablet PO ×2 (09:15→17:53)
[2021-10-01] MEDS: gabapentin 300 mg Capsule PO ×2 (09:15→17:53)
[2021-10-01] MEDS: fluticasone nasal spray 16gm Btl 2 SPRAY INTRANASAL (09:25)
--- NOTE | 2021-10-01 13:03 | P.PN_ITS ---
Subjective Subjective: Patient seen on [facility] floor today. Complaining of abdominal pain and nausea. Denies any vomiting. States has had since today morning mixed with blood. Denies any dizziness, nausea vomiting, headache. Blood pressure today morning slightly soft in the low 90s systolic. Vitals/I&O/Wt Last Vital Signs Temp 97.6 F 10/01/21 11:11 Pulse 66 10/01/21 11:11 Resp 18 10/01/21 11:11 BP 95/60 10/01/21 11:11 Pulse Ox 97 10/01/21 11:11 09/30/21 10/01/21 10/01/21 22:59 06:59 14:59 Intake Total 1870 / 2070 530 / 2600 480 / 480 Output Total 200 / 200 740 / 940 Balance 1670 / 1870 -210 / 1660 480 / 480 Weight last 48 hrs Weight 71.866 kg Weight 70.76 kg Weight 69.853 kg Physical Exam Narrative: General: No acute distress, AO x3 HEENT: PERRLA, pupils bilaterally equal and reactive Chest: Normal vesicular breath sounds, no added sounds, equal good air entry bilaterally CVS: S1-S2 regular, no murmurs, no tachycardia, no gallops, no rubs Abdomen: Soft, right lower quadrant tenderness, no organomegaly, bowel sounds present Neuro: No focal deficits, no facial deformity, AO x3, power 5/5 in all limbs Data : 10/01/21 05:19 10/01/21 05:19 Micro: Microbiology 10/01/21 07:30 Stool Lactoferrin - Final Stool Enteric Pathogens (PCR) - Final C.difficile Toxin B Gene (PCR) - Final Occult Blood (FIT) - Final A&P Assessment and plan (1) Acute blood loss anemia: Secondary to bright red blood per rectum. Given ongoing bloody bowel movements we will transfuse 2 unit of PRBC. Monitor CBC daily. Continue with oral iron supplementation. Status: Acute (2) Bright red blood per rectum: Most likely secondary to diverticulitis. Cannot rule out malignancy given find ing of focal stricture in descending colon. Does take naproxen daily and has a history of alcohol abuse in the past. Alcohol level negative. Protonix 40 mg twice daily. Mechanical soft diet. Carafate before meals and at bedtime. Continue holding aspirin. Will certified addiction counselor regarding alcohol abstinence. Status: Acute (3) Diverticulitis: CT abdomen pelvis consistent with mild diverticulitis. Continue with Zosyn. Blood cultures. Soft diet as above. Check stool studies to rule out C. difficile. Discussed in detail with patient regarding multiple small meals. Morphine for pain. Status: Acute (4) Alcohol dependence, in remission: Check alcohol level. Status: Acute (5) Nicotine dependence, chewing tobacco, uncomplicated: Status: Acute Plan Analgesia: Tylenol as needed, morphine 1 mg every 4 hour as needed for pain. Glycemic control: Not needed Nutrition: Mechanical soft diet CODE STATUS: Full code PUD prophylaxis: Protonix DVT prophylaxis: SCDs Discharge planning: Within 24 hours if hemoglobin remains stable. Admit to [facility] with telemetry. Attestations Medical Necessity Statement*: Continue admission for management of anemia, s oft blood pressures secondary to blood loss anemia in setting of diverticulitis. Switch to inpatient. Time Spent in Patient Care: Greater than 35 minutes Coding Level of Care Code Acute Oil Well Perforator Operator for Dario Fwd Diagnoses Acute blood loss anemia D62 Bright red blood per rectum K62.5 Alcohol dependence, in remission F10.21 Nicotine dependence, chewing tobacco, uncomplicated F17.220 Diverticulitis K57.92
[2021-10-01] MEDS: sodium chloride 0.9% (100 ml) 100 ML 150 ML ×2 (15:55→17:54)
[2021-10-01] MEDS: docusate sodium 100 mg Capsule PO (17:53)
[2021-10-01] MEDS: sennosides 8.6 mg Tablet 17.2 MG PO (21:14)
[2021-10-02] VITALS (8 sets, daily range): BP systolic 94–133; BP diastolic 55–88; PULSE 57–83; RESP 16–20; TEMP 36.5–36.9; O2SAT 90–97
[2021-10-02] MEDS: ondansetron 2 mg/ML SDV 2 mL 4 MG IVP (04:45)
[2021-10-02] MEDS: piperacillin-tazobactam 3.375 GM in sodium chloride 0.9% (plus) 50 ML IV (04:49)
[2021-10-02] MEDS: venlafaxine ER (24HR) 75 mg Capsule PO (06:01)
[2021-10-02] MEDS: sucralfate 1 gm/10 mL Oral Liq UDC PO ×2 (06:01→10:39)
[2021-10-02] MEDS: magnesium hydroxide 30 mL UDC PO (09:56)
[2021-10-02] MEDS: ferrous gluconate 324 mg Tablet PO (09:56)
[2021-10-02] MEDS: docusate sodium 100 mg Capsule PO (09:56)
[2021-10-02] MEDS: fluticasone nasal spray 16gm Btl 2 SPRAY INTRANASAL (09:56)
[2021-10-02] MEDS: pantoprazole 40 mg SDV IVP (09:56)
[2021-10-02] MEDS: gabapentin 300 mg Capsule PO (09:56)
[2021-10-02 10:43] LABS: Basophils # 0.1 10^3/uL (0.0-0.1); Basophils % 0.6 %; Eosinophils # 0.2 10^3/uL (0.0-0.8); Eosinophils % 1.9 %; Hematocrit 29.6 % (37.0-47.0); Hemoglobin 9.9 g/dL (11.5-15.3); Lymphocytes # 2.3 10^3/uL (0.8-4.8); Lymphocytes % 27.2 %; Mean Corpuscular HGB Conc 33.4 g/dL (30.0-36.0); Mean Corpuscular Hemoglobin 28.9 pg (28.0-34.0); Mean Corpuscular Volume 86.5 fl (81-99); Mean Platelet Volume 9.2 fL (7.4-10.4); Monocytes # 0.7 10^3/uL (0.2-0.9); Monocytes % 8.8 %; Neutrophils # 5.09 10^3/uL (1.8-7.7); Neutrophils % 60.5 %; Nucleated Red Blood Cells % 0 %; Platelet Count 262 10^3/cmm (130-400); Red Blood Count 3.42 10^6/uL (4.1-5.3); Red Cell Distribution Width 14.3 % (12.1-15.1); White Blood Count 8.4 10^3/uL (4.0-10.0)
--- NOTE | 2021-10-02 12:14 | P.DS_ITS ---
Discharge Providers Date of Admission: 09/30/21 13:31 Date of Discharge: October 02, 2021 Attending Provider at Admission: Ralf De Souza MD Attending Provider at Discharge: Ralf De Souza MD Primary Care Provider: Jacqueline Urena APN Diagnoses at Discharge Discharge Diagnosis (1) Acute blood loss anemia: Status: Acute (2) Bright red blood per rectum: Status: Acute (3) Diverticulitis: Status: Acute (4) Alcohol dependence, in remission: Status: Acute (5) Nicotine dependence, chewing tobacco, uncomplicated: Status: Acute Reason for Visit Reason for Visit: Says she had rectal bleeding Hospital Course Hospital Course Tennille Parham is a 61 year old female comes into the ER today with bright red blood per rectum for last 4 days.? After the patient she has miguel blood with every bowel movement for 4 days and she has been on 4-5 bowel movements a day.? Prior to that she has been having lower abdominal pain for last 2 weeks for which she followed up with a primary care provider 2 weeks ago when she was given Tylenol for back pain.? Patient has had similar issues around 8 years ago when she was found to have diverticulitis.? Last colonoscopy was few years ago.? Patient is not aware about the report.? Patient has been scheduled as an outpatient for colonoscopy with Dr. Chatterjee on 10/13. Patient denies of any nausea, vomiting, dizziness, chest pain, difficulty in breathing.? She does have a history of alcohol abuse which is in remission.? Denies of having any recent alcohol binge.? States she takes naproxen once a day for fibromyalgia. Blood work from outside showed a hemoglobin of 12 .7 which was 2weeks ago.? On review of chart last hemoglobin in the system is from 2019 which was 10.7. Patient to the hospital further evaluation and management of diverticulitis, acute blood loss anemia secondary GI bleed. She is started on broad-spectrum antibiotics. Patient's hemoglobin trended down to 7.6. She required 2 units of blood transfusion. Hemoglobin on day of discharge is 9.9. Patient requires colonoscopy for further evaluation and management but given ongoing diver ticulitis she is at a high risk of perforation so decision was made to hold off on colonoscopy for at least 2 weeks. Patient is been discharged hemodynamically stable condition on oral antibiotics for 4 more days, with advised to follow-up on the set appointment for the day of colonoscopy with Dr. Chatterjee. She is also advised to repeat hemoglobin in 1 week. She is advised to take multiple small meals during the day. She is advised to restrict her diet to brat diet. Patient is advised not to take aspirin and naproxen for next 2 weeks till her colonoscopy. Physical Exam Narrative: General: No acute distress, AO x3 HEENT: PERRLA, pupils bilaterally equal and reactive Chest: Normal vesicular breath sounds, no added sounds, equal good air entry bilaterally CVS: S1-S2 regular, no murmurs, no tachycardia, no gallops, no rubs Abdomen: Soft, right lower quadrant tenderness, no organomegaly, bowel sounds present Neuro: No focal deficits, no facial deformity, AO x3, power 5/5 in all limbs Discharge Data Studies Completed and Pending Completed Studies During Hospitalization Category Date Time Status CT abdomen pelvis wo con [id number] Urgent Cat Scan 09/30/21 10:54 Completed Pending at discharge Category Date Time Status Clostridioides Difficile PCR Routine Lab 09/30/21 16:02 Results Enteric Bacterial Panel by PCR Routine Lab 09/30/21 16:02 Results Enteric Parasite Panel by PCR Routine Lab 09/30/21 16:02 Results Immunochemical Fecal OCB Routine Lab 09/30/21 16:02 Results Lactoferrin Routine Lab 09/30/21 16:02 Results Radiology Impressions Abdomen/Pelvis CT 09/30/21 10:54 IMPRESSION: 1. Numerous diverticula in the distal colon with a small amount of inflammation surrounding the sigmoid colon. Mild acute diverticulitis suspected. 2. Focal stricture involving the descending colon with very mild submucosal thickening. Recommend further evaluation with colonoscopy. Early neoplasm is not excluded. 3. No free air or abscess or free fluid. 4. No obstructing lesion identified. 5. Prior appendectomy. Microbiology 10/01/21 07:30 Stool Stool Lactoferrin - Final 10/01/21 07:30 Stool Enteric Pathogens (PCR) - Final 10/01/21 07:30 Stool C.difficile Toxin B Gene (PCR) - Final 10/01/21 07:30 Stool Occult Blood (FIT) - Final Laboratory Results WBC 8.4 10^3/uL (4.0-10.0) 10/02/21 09:45 RBC 3.42 10^6/uL (4.1-5.3) L 10/02/21 09:45 Hgb 9.9 g/dL (11.5-15.3) L D 10/02/21 09:45 Hct 29.6 % (37.0-47.0) L 10/02/21 09:45 MCV 86.5 fl (81-99) 10/02/21 09:45 MCH 28.9 pg (28.0-34.0) 10/02/21 09:45 MCHC 33.4 g/dL (30.0-36.0) 10/02/21 09:45 RDW 14.3 % (12.1-15.1) 10/02/21 09:45 Plt Count 262 10^3/cmm (130-400) 10/02/21 09:45 MPV 9.2 fL (7.4-10.4) 10/02/21 09:45 Neut % (Auto) 60.5 % 10/02/21 09:45 Lymph % (Auto) 27.2 % 10/02/21 09:45 Terrell % (Auto) 8.8 % 10/02/21 09:45 Eos % (Auto) 1.9 % 10/02/21 09:45 Baso % (Auto) 0.6 % 10/02/21 09:45 Neut # (Auto) 5.09 10^3/uL (1.8-7.7) 10/02/21 09:45 Lymph # (Auto) 2.3 10^3/uL (0.8-4.8) 10/02/21 09:45 Terrell # (Auto) 0.7 10^3/uL (0.2-0.9) 10/02/21 09:45 Eos # (Auto) 0.2 10^3/uL (0.0-0.8) 10/02/21 09:45 Baso # (Auto) 0.1 10^3/uL (0.0-0.1) 10/02/21 09:45 Nucleated RBC % (auto) 0 % 10/02/21 09:45 Nucleated RBCs # 0.0 /100WBC 10/02/21 09:45 PT 13.70 SECONDS (12.1-14.9) 09/30/21 10:22 INR 1.02 (0.8-1.2) 09/30/21 10:22 APTT 24.2 SECONDS (23.9-36.7) 09/30/21 10:22 Sodium 143 mmol/L (136-145) 10/01/21 05:19 Potassium 4.5 mmol/L (3.5-5.1) 10/01/21 05:19 Chloride 111 mmol/L (98-107) H 10/01/21 05:19 Carbon Dioxide 24 mmol/L (22-29) 10/01/21 05:19 Anion Gap 12.5 (5-19) 10/01/21 05:19 BUN 9 mg/dL (8-23) 10/01/21 05:19 Creatinine 0.7 mg/dL (0.5-0.9) 10/01/21 05:19 GFR Calculation 84.5 mL/min (90-130) L 10/01/21 05:19 Glucose 99 mg/dL (65-115) 10/01/21 05:19 Estimat Average Glucose 123 10/01/21 05:19 Hemoglobin A1c 5.9 % (4.0-6.0) 10/01/21 05:19 Calculated Osmolality 295 mOsm/kg (285-295) 10/01/21 05:19 Calcium 9.6 mg/dL (8.5-10.5) 10/01/21 05:19 Phosphorus 2.7 mg/dL (2.5-4.5) 10/01/21 05:19 Magnesium 2.1 mg/dL (1.7-2.3) 10/01/21 05:19 Iron 28 ug/dL (37-145) L 09/30/21 10:22 TIBC 352 mcg/dl 09/30/21 10:22 % Saturation 7.9 % (20-50) L 09/30/21 10:22 Unsat Iron Binding 324 ug/dL (112-347) 09/30/21 10:22 Total Bilirubin 0.2 mg/dL (0.15-1.2) 10/01/21 05:19 AST 16 U/L (0-32) 10/01/21 05:19 ALT 13 U/L (0-33) 10/01/21 05:19 Alkaline Phosphatase 84 IU/L (35-105) 10/01/21 05:19 Total Protein 5.9 g/dL (6.6-8.7) L 10/01/21 05:19 Albumin 3.5 g/dL (3.5-5.2) 10/01/21 05:19 Globulin 2.4 g/dL (1.3-4.6) 10/01/21 05:19 Triglycerides 97 mg/dL (0-150) 10/01/21 05:19 Cholesterol 183 mg/dL (0-200) 10/01/21 05:19 LDL Cholesterol, Calc 124 mg/dL (50-129) 10/01/21 05:19 Total VLDL Cholesterol 19 mg/dL (0-30) 10/01/21 05:19 HDL Cholesterol 40 mg/dL (60-100) L 10/01/21 05:19 Cholesterol/HDL Ratio 4.58 mg/dL (0.0-4.40) H 10/01/21 05:19 TSH 4.97 uIU/mL (0.27-4.20) H 09/30/21 10:22 Free T4 0.93 ng/dL (0.82-1.77) 09/30/21 10:22 Free T3 2.2 PG/ML (2.0-4.4) 09/30/21 10:22 Ethyl Alcohol < 10 mg/dL (0-10) 09/30/21 10:22 Blood Type O Positive 09/30/21 12:00 Rho(D) Type Positive 09/30/21 12:00 Antibody Screen Negative 09/30/21 12:00 Crossmatch See Detail 09/30/21 12:00 Vitals Last Vital Signs Temp 97.8 F 10/02/21 11:16 Pulse 68 10/02/21 11:16 Resp 18 10/02/21 11:16 BP 130/80 10/02/21 11:16 Pulse Ox 95 10/02/21 11:16 Discharge Plan Discharge Patient Disposition: Home Condition: Stable Prescriptions: New sucralfate 100 mg/mL Suspension 1 g PO AC&BEDTIME Qty: 300 0RF Milk of Magnesia 400 mg/5 mL Suspension 30 ml PO DAILY Qty: 300 0RF docusate sodium 100 mg Capsule 100 mg PO BID Qty: 30 0RF ferrous gluconate 324 mg (37.5 mg iron) Tablet 324 mg PO BIDWM Qty: 60 0RF ciprofloxacin HCl 500 mg tablet 500 mg PO Q12H 4 Days Qty: 8 0RF metronidazole [Flagyl] 375 mg capsule 375 mg PO BID 10 Days Qty: 20 0RF Continued venlafaxine [Effexor XR] 75 mg capsule,extended release 24hr 75 mg PO QAM Qty: 30 2RF gabapentin 300 mg capsule 300 mg PO BID Qty: 90 0RF albuterol sulfate 90 mcg/actuation HFA aerosol inhaler 2 puff inhalation QID PRN (Reason: Shortness Of Breath) 0RF acetaminophen-codeine 300-30 mg tablet 1 tab PO Q4H PRN (Reason: Pain) 0RF fluticasone propionate [Flonase Allergy Relief] 50 mcg/actuation [place],Suspension 2 spray INTRANASAL DAILY 0RF olmesartan 40 mg Tablet 40 mg PO DAILY@12 0RF budesonide-formoterol [Symbicort] 160-4.5 mcg/actuation Hfa Aerosol Inhaler 2 puff INHALATION BID 0RF hydrocortisone 2.5 % cream with perineal applicator 1 applic topical BID 0RF EpiPen 2-Gustabo 0.3 mg/0.3 mL Auto-Injector See Rx Instructions .ROUTE .COMPLEX 0RF Rx Instructions: as directed prn estradiol 0.1 mg/24 hr patch weekly 1 patch topical Q7D 0RF Rx Instructions: on mondays biotin 1 cap PO DAILY 0RF Changed pantoprazole 40 mg tablet,delayed release (DR/EC) 40 mg PO BID Qty: 20 0RF Held naproxen 500 mg Tablet 500 mg PO BID PRN (Reason: Pain) 0RF Hold Instructions: Resume on 10/17/21. Aspir-81 81 mg Tablet,Delayed Release (Dr/Ec) 81 mg PO DAILY 0RF Hold Instructions: Resume on 10/17/21. Discharge Orders: Discharge Order (Routine); Ordered 10/02/21 Ordered By: Ralf De Souza Referrals: Kiet Chatterjee MD [Physician] - 2 weeks Urena,PRO Phillips [Primary Care Provider] - 4-7 days Discharge Diet: GI Soft and Soft Mechanical Discharge Activity: Resume usual activity and Increase activity as tolerated Patient Instructions: Opioid Safety Activity Restrictions/Additional Instructions: Please do not take aspirin or naproxen for next 2 weeks. Take Protonix 2 times a day. Do not take Prilosec along with Protonix. Take Carafate prior to meals for next 2 weeks. Please follow-up with Dr. Chatterjee on new set appointment for colonoscopy. Ciprofloxacin and Flagyl IV antibiotics which you should take for next 4 days for diverticulitis. Please follow-up with a primary care provider within next 1 week for repeat CBC. Discussed in detail please take multiple small meals during the day. You should be on brat/soft mechanical diet for next few days. Please try to abstain from alcohol as much as possible. Discharge Attestations Time Spent in Discharge Care*: greater than 30 min Specific Discharge Activities: educating patient, educating and/or supporting family/caregiver, discussing with pcp/other providers, discussing with manager of case management/social workers/dc planners, documenting/other paperwork and evaluating patient/reviewing data Status at Discharge: Cognitive status at discharge: cognitively intact , Behavioral status at discharge: cooperative , Functional status at discharge: independent ambulation , Overall status at discharge: patient is back to baseline Quality Metrics Clinical Quality Measures [ No reported AMI, CVA or VTE this stay] Coding Level of Care Code Acute [facility] note Diagnoses Acute blood loss anemia D62 Bright red blood per rectum K62.5 Diverticulitis K57.92 Alcohol dependence, in remission F10.21 Nicotine dependence, chewing tobacco, uncomplicated F17.220
== END 2021-10-02 15:00 | disposition home or self-care (01) ==
LOC: ER 13:15 → MEDSURG 15:24
PROVIDERS: Admitting Provider Student in an Organized Health Care Education/Training Program; Emergency Provider Physician Assistant; PCP Nurse Practitioner Family; Visit Provider Student in an Organized Health Care Education/Training Program
DX: D62 Acute posthemorrhagic anemia (principal); K62.5 Hemorrhage of anus and rectum; K57.92 Diverticulitis of intestine, part unspecified, without perforation or abscess without bleeding; F10.21 Alcohol dependence, in remission; F17.220 Nicotine dependence, chewing tobacco, uncomplicated; Z79.1 Long term (current) use of non-steroidal anti-inflammatories (NSAID); M79.7 Fibromyalgia; Z79.82 Long term (current) use of aspirin
CPT/HCPCS: 36415; 36430; 74176; 80053; 80061; 80307; 82274; 83036; 83540; 83550; 83630; 83735; 84100; 84439; 84443; 84481; 85025; 85610; 85730; 86850; 86900; 86920; 87493; 87506; 94640; 94664; 96365; 96367; 96375; 99285; C9113; G0378; J0744; J2405; J2543; J7030; P9016; S0030

== ENCOUNTER 2021-10-09 06:00 | Outpatient (RCR) | payer MEDICARE, MEDICAID, SELFPAY | END 2021-10-17 23:59 | disposition home or self-care (01) | LOC: SPT 06:00 | PROVIDERS: PCP Nurse Practitioner Family; Referring Provider Family Medicine; Visit Provider Family Medicine | DX: M47.896 Other spondylosis, lumbar region (principal) | CPT/HCPCS: 97110; 97161 ==

== ENCOUNTER 2021-10-28 07:42 | Day surgery (SDC) | payer MEDICARE, MEDICAID, SELFPAY ==
[2021-10-24 15:36] VITALS: BMI 25.6
--- NOTE | 2021-10-28 07:28 | P.HP_ITS ---
Same Day Surgery H&P Indication for Procedure/HPI DATE OF PROCEDURE: October 28, 2021 CHIEF COMPLAINT/INDICATIONFOR SURGICAL PROCEDURE: Hematochezia PREOP DIAGNOSIS: Hematochezia PLANNED PROCEDURE: Operation Date: 10/28/21 09:30 Proposed Procedures p Colonoscopy 08595,(Not Applicable) - Kiet Chatterjee MD Medications/Allergies* Home Medications Medication Instructions Recorded Confirmed Type budesonide-formoterol HFA 160 2 puff INHALATION BID 06/16/19 10/24/21 History mcg-4.5 mcg/actuation aerosol inhaler (Symbicort) fluticasone propionate 50 2 spray INTRANASAL DAILY 06/16/19 10/24/21 History mcg/actuation nasal spray,suspension (Flonase Allergy Relief) naproxen 500 mg tablet 500 mg PO BID PRN 06/16/19 10/24/21 History olmesartan 40 mg tablet (Benicar) 40 mg PO DAILY@12 06/16/19 10/24/21 History albuterol sulfate 90 mcg/actuation 2 puff INHALATION QID PRN 09/30/21 10/24/21 History aerosol inhaler aspirin 81 mg tablet,delayed 81 mg PO DAILY 09/30/21 10/24/21 History release biotin 1 cap PO DAILY 09/30/21 10/24/21 History epinephrine 0.3 mg/0.3 mL See Rx Instructions .ROUTE .COMPLEX 09/30/21 10/24/21 History injection, auto-injector (EpiPen 2-Gustabo) estradiol 0.1 mg/24 hr weekly 1 patch TOPICAL Q7D 09/30/21 10/24/21 History transdermal patch hydrocortisone 2.5 % topical cream 1 applic TOPICAL BID 09/30/21 10/24/21 History with perineal applicator docusate sodium 100 mg capsule 100 mg PO BID 10/24/21 10/24/21 History (Colace) ferrous gluconate 324 mg (37.5 mg 324 mg PO BID 10/24/21 10/24/21 History iron) tablet Allergies/Adverse Reactions Allergy/AdvReac Type Severity Reaction Status Date / Time bee venom protein (honey bee) Allergy Unknown Verified 10/24/21 15:46 celery Allergy Unknown Verified 10/24/21 15:46 Sulfa (Sulfonamide Allergy Unknown Verified 10/24/21 15:46 Antibiotics) sumatriptan [From Imitrex] Allergy Unknown Verified 10/24/21 15:46 tramadol Allergy Unknown Verified 10/24/21 15:46 Pertinent History/Comorbid Conditions* Medical History (Updated 10/03/21 @ 00:01 by ) Alcohol dependence, in remission Lumbar stenosis with neurogenic claudication Lyme disease Nicotine dependence, chewing tobacco, uncomplicated Post-traumatic stress disorder, chronic Rectal bleeding Family History (Updated 09/30/21 @ 15:58 by Ralf De Souza MD) Crohn disease Cancer Social History Smoking and tobacco status: never smoked (Chews tobacco) Alcohol intake: current Alcohol intake frequency: holidays/special occasions only Desire information about alcohol rehabilitation?: No Last alcohol use date: 05/16/19 Lives independently: Yes Housing: Apartment Additional social history: Uses chewing tobacco Pertinent Exam Findings alert, oriented x 3, clear to auscultation bilaterally, regular rate & rhythm, operative site marked and procedure specific exam findings Recommendations Surgery/Procedure today Coding Level of Care Code Acute 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
[2021-10-28 08:44] VITALS: BP 117/75; PULSE 72; RESP 15; TEMP 36.6; O2SAT 98
[2021-10-28] MEDS: sodium chloride 0.9% 1,000 ML 30 ML IV (08:49)
--- NOTE | 2021-10-28 08:52 | ANES.PREANE2 ---
Pre-Anesthetic Assessment Height/Weight: Height 1.65 m Weight 69.853 kg Temp Pulse Resp BP Pulse Ox 98 F 72 15 117/75 98 10/28/21 08:44 10/28/21 08:44 10/28/21 08:44 10/28/21 08:44 10/28/21 08:44 Preop Diagnosis: Bleeding Operation Date: 10/28/21 09:30 Proposed Procedures p Colonoscopy 90426,(Not Applicable) - Kiet Chatterjee MD Familial anesthetic complications: None Was Beta Aditi taken within 24 hours: N/A Was Clonidine taken within 24 hours: N/A Last intake: Intake Last Liquid Date 10/27/21 Last Liquid Time 23:00 Last Solid Date 10/26/21 Last Solid Time 19:00 Social Tobacco and No alcohol Exam alert, oriented x 3, clear to auscultation bilaterally and regular rate & rhythm Airway Submandibular: within normal limits Cervical ROM: within normal limits Mallampati: Class II Comments: Comments: chipped History/ROS No significant complaints Pulmonary Asthma (well controlled ) CV/HEM Anemia METS > 4 None reported Hepatic None reported GI Rectal bleeding Metabolic None reported Musc/skel Lower Back Pain Neuropsych PTSD Former ETOH abuse Anesthetic Plan ASA status: 2 Anesthesia: Anesthesia Evaluation and General Other: I discussed with the patient risks, goals, and benefits of MAC and general anesthesia. We discussed spectrum of MAC anesthesia including conversion to general as well as possibility of recall of intraoperative stimuli including discomfort/pain. Patient agrees to proceed with MAC. Risk of > 500 ml blood loss (7ml/kg in children): No Medications/Allergies Home Medications Medication Instructions Recorded Confirmed Last Taken Type budesonide-formoterol HFA 160 2 puff INHALATION BID 06/16/19 10/24/21 06/16/19 History mcg-4.5 mcg/actuation aerosol inhaler (Symbicort) fluticasone propionate 50 2 spray INTRANASAL DAILY 06/16/19 10/24/21 Unknown History mcg/actuation nasal spray,suspension (Flonase Allergy Relief) naproxen 500 mg tablet 500 mg PO BID PRN 06/16/19 10/24/21 Unknown History olmesartan 40 mg tablet (Benicar) 40 mg PO DAILY@12 06/16/19 10/24/21 10/27/21 History venlafaxine 75 mg capsule,extended 75 mg PO QAM #30 cap 08/05/21 10/24/21 10/27/21 Rx release 24 hr (Effexor XR) gabapentin 300 mg capsule 300 mg PO BID #90 cap 09/26/21 10/24/21 10/27/21 Rx albuterol sulfate 90 mcg/actuation 2 puff INHALATION QID PRN 09/30/21 10/24/21 Unknown History aerosol inhaler aspirin 81 mg tablet,delayed 81 mg PO DAILY 09/30/21 10/28/21 10/09/21 History release biotin 1 cap PO DAILY 09/30/21 10/24/21 Unknown History epinephrine 0.3 mg/0.3 mL See Rx Instructions .ROUTE .COMPLEX 09/30/21 10/24/21 Unknown History injection, auto-injector (EpiPen 2-Gustabo) estradiol 0.1 mg/24 hr weekly 1 patch TOPICAL Q7D 09/30/21 10/24/21 09/23/21 History transdermal patch hydrocortisone 2.5 % topical cream 1 applic TOPICAL BID 09/30/21 10/24/21 Unknown History with perineal applicator pantoprazole 40 mg tablet,delayed 40 mg PO BID #20 tab 10/02/21 10/24/21 10/27/21 Rx release docusate sodium 100 mg capsule 100 mg PO BID 10/24/21 10/24/21 Unknown History (Colace) ferrous gluconate 324 mg (37.5 mg 324 mg PO BID 10/24/21 10/24/21 Unknown History iron) tablet Allergies Allergy/AdvReac Type Severity Reaction Status Date / Time bee venom protein (honey bee) Allergy Unknown Verified 10/24/21 15:46 celery Allergy Unknown Verified 10/24/21 15:46 Sulfa (Sulfonamide Allergy Unknown Verified 10/24/21 15:46 Antibiotics) sumatriptan [From Imitrex] Allergy Unknown Verified 10/24/21 15:46 tramadol Allergy Unknown Verified 10/24/21 15:46 Current Medications Generic Name Dose Route Start Last Admin Trade Name Freq PRN Reason Stop Dose Admin Sodium Chloride 1,000 mls @ 30 mls/hr 10/28/21 08:15 10/28/21 08:49 Sodium Chloride 0.9% IV 30 mls/hr .Q24H CHASITY Administration PFSH Anesthesia Medical History Alcohol dependence, in remission Lumbar stenosis with neurogenic claudication Lyme disease Nicotine dependence, chewing tobacco, uncomplicated Post-traumatic stress disorder, chronic Rectal bleeding Family History Other Cancer Crohn disease Social History Smoking and tobacco status: never smoked (Chews tobacco) Alcohol intake: current Alcohol intake frequency: holidays/special occasions only Desire information about alcohol rehabilitation?: No Last alcohol use date: 05/16/19 Lives independently: Yes Housing: Apartment Additional social history: Uses chewing tobacco Data Anesthesia Cardiac Studies: No Data to Display
[2021-10-28 10:18] VITALS: BP 87/59; PULSE 72; RESP 20; TEMP 36.1; O2SAT 100
--- NOTE | 2021-10-28 10:20 | ANE.PACU2 ---
Documented by User: Margo Raya CRNA 10/28/21 10:20 Inpatient post-anesthesia follow up: Airway intact: Yes Vital signs: Temperature 97 F Pulse Rate 72 Respiratory Rate 20 Blood Pressure 87/59 Pulse Oximetry 100 Oxygen Delivery Me thod Room Air Oxygen Flow Rate Fraction of Inspir ed Oxygen Hydration adequate: Yes Nausea and vomiting: No Pain level: 1 Mental status: Baseline
[2021-10-28 10:32] VITALS: BP 99/80; PULSE 72; RESP 16; O2SAT 96
== END 2021-10-28 10:48 | disposition home or self-care (01) ==
PROVIDERS: PCP Nurse Practitioner Family; Visit Provider Internal Medicine
PROC: 0DJD8ZZ Inspection of Lower Intestinal Tract, Via Natural or Artificial Opening Endoscopic (ICD-10-PCS; CPT 45378; principal; 2021-10-28 09:30)
DX: K92.1 Melena (principal); Z79.82 Long term (current) use of aspirin; F17.220 Nicotine dependence, chewing tobacco, uncomplicated; K57.30 Diverticulosis of large intestine without perforation or abscess without bleeding
CPT/HCPCS: 45378; J2704; J7030

== ENCOUNTER 2022-05-02 06:56 | Outpatient (CLI) | payer MEDICARE, MEDICAID, SELFPAY ==
--- NOTE | 2022-05-02 | CT_ITS ---
WS: [id number] CT CHEST WITH INTRAVENOUS CONTRAST HISTORY: DYSPNEA TECHNIQUE: Contiguous 5 mm axial imaging performed on the thorax. Coronal and sagittal reformats are submitted. All CT scans at [facility] use at least one of these dose optimization techniques: automated exposure control; mA and/or kV adjustment per patient size (includes targeted exams where dose is matched to clinical indication); or iterative reconstruction. CONTRAST: Omnipaque 350; 95 mL IV. DLP: 266.97 mGy.cm COMPARISON: 06/09/2017 Lungs and central airway: There are several scattered 3-6 mm pulmonary nodules which are unchanged. N o new or enlarging nodules. No mass or pneumonia. Pleura: Normal. No pleural effusion. Heart and pericardium: Normal size heart. Mediastinum and robb: No mediastinum or hilar adenopathy. Vessels: Normal size aortic and pulmonary artery. No coronary artery calcifications. Chest wall and lower neck: Well-circumscribed low-attenuation mass along the inferior posterior RIGHT thyroid lobe measures 2.0 x 1.5 cm. Slightly more cystic and slightly increased in size since 2018. Upper abdomen: Small hiatal hernia. No adrenal mass. Osseous structures: Mild anterior wedging of T4. CT/CT chest w con* [id number] IMPRESSION: 1. Stable subcentimeter pulmonary nodules. No new mass or enlarging nodule or pneumonia. 2. Normal size heart. 3. Slight increase in size and cystic appearance inferior RIGHT neck nodule wh ich may be associated with the thyroid or parathyroid adenoma. There is minimal ly changed in appearance since 2018. Thyroid ultrasound can be obtained to eval uate. May not be accessible for imaging due to its very anterior position.
[2022-05-02] MEDS: iohexol 350 mg/mL 500 mL Btl (per mL) IV (07:37)
== END 2022-05-02 06:57 | disposition home or self-care (01) ==
LOC: RAD 07:00
PROVIDERS: PCP Nurse Practitioner Family; Visit Provider Nurse Practitioner Family
DX: R06.00 Dyspnea, unspecified (principal); R91.8 Other nonspecific abnormal finding of lung field
CPT/HCPCS: 71260; Q9967

== ENCOUNTER 2022-09-26 06:35 | Outpatient (CLI) | payer MEDICARE, MEDICAID, SELFPAY ==
--- NOTE | 2022-09-26 07:14 | XR_ITS ---
WS: [email or web address] Right wrist, AP and lateral views, 09/26/2022 Clinical Data: R WRIST PAIN Comparison: None. Findings: No fractures or dislocations are seen. The carpal bones are intact. There is no soft tissue swelling. The distal radius and ulna are not remarkable. There is minimal osteoarthritic change in the articulation between the trapezium and trapezoid with t he scaphoid. 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
--- NOTE | 2022-09-26 07:14 | XR_ITS ---
WS: [id number] Right hand, AP and lateral views, 09/26/2022 Clinical Data: R HAND PAIN Comparison: None. Findings: No fractures or dislocations are seen. The soft tissues are unremarkable. There is osteoa rthritis of the right second through fifth DIP joints.The patient's ring obscures minimal detail over the fourth proximal phalanx. 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
== END 2022-09-26 06:36 | disposition home or self-care (01) ==
LOC: RAD 06:39
PROVIDERS: PCP Nurse Practitioner Family; Visit Provider Nurse Practitioner Family
DX: M25.531 Pain in right wrist (principal); M79.641 Pain in right hand
CPT/HCPCS: 73100; 73120

== ENCOUNTER 2022-11-11 08:51 | Outpatient (CLI) | payer MEDICARE, MEDICAID, SELFPAY ==
--- NOTE | 2022-11-11 09:04 | CT_ITS ---
WS: [id number] CT NECK TECHNIQUE: Contrast-enhanced CT of the neck with coronal and sagittal reformatted images. CLINICAL INFORMATION: NONTOXIC SINGLE THYROID NODULE COMPARISON: None. DLP: 128.[address] scans at [facility] use at least one of these dose optimization techniques: automated e xposure control; mA and/or kV adjustment per patient size (includes targeted exams where dose is matc hed to clinical indication); or iterative reconstruction. FINDINGS: Heterogeneous upper pole RIGHT thyroid nodule projecting posteriorly. This measures approximately 2.0 x 1.9 x 2.3 cm AP by transverse by craniocaudal. A few additional tiny bilateral thyroid nodules. Fibrosis in the lung apices.Paranasal sinuses are well aerated. Mastoid air cells are well aerated. N ormal parapharyngeal fat. Normal posterior nasopharynx. Small focus of hypoenhancement in the LEFT pa latine tonsil measuring 5 mm. Recommend direct visualization. No evidence of supraglottic or glottic mass. Normal subglottic airway. Parotid glands are normal. Submandibular glands are normal. Straightening of the normal cervical lord osis. Moderate spondylitic changes cervical spine. CT/CT neck w con* [id number] IMPRESSION: 1. Heterogeneous upper pole RIGHT thyroid nodule projecting posteriorly. This measures approximately 2.0 x 1.9 x 2.3 cm AP by transverse by craniocaudal 2. A few additional tiny bilateral thyroid nodules. 3. Small focus of hypoenhancement in the LEFT palatine tonsil measuring 5 mm. Recommend direct visualization. 4. No other suspicious findings. 5. No other suspicious findings.
--- NOTE | 2022-11-11 09:12 | FL_ITS ---
WS: [email or web address] EXAMINATION: FL barium swallow [id number] REASON FOR EXAM: NONTOXIC SINGLE THYROID NODULE ORDER DATE: 11/11/2022 9:48 AM COMPARISON: None available. TECHNIQUE: The patient was able to swallow thick barium for the esophagram. Cine-fluoroscopy with rapid sequence imaging was obtained while the patient swallowed. The patient was also placed supine and in various recumbent positions during the exam. FINDINGS: There was a normal mucosal fold pattern in the upper esophagus. There is no sign of diverticula, webs or stricture. There was a mild delay in contrast emptying from the esophagus into the stomach. There was a small sliding hiatal hernia. With provocative maneuvers no gastroesophageal reflux was initiat ed. The distal esophageal mucosal pattern is unremarkable. FL/FL barium swallow [id number] IMPRESSION: 1. MILD CONTRAST RETENTION DUE TO DELAYED EMPTYING. 2. HIATAL HERNIA WITHOUT GASTROESOPHAGEAL REFLUX. FLUOROSCOPY TIME: 1min [id number] # OF SPOT FILMS:
[2022-11-11 09:41] LABS: Blood Urea Nitrogen 8 mg/dL (8-23); Glomerular Filtration Rate 84.2 mL/min (90-130)
[2022-11-11] MEDS: iohexol 350 mg/mL 500 mL Btl (per mL) IV (09:52)
== END 2022-11-11 08:52 | disposition home or self-care (01) ==
PROVIDERS: PCP Nurse Practitioner Family; Visit Provider Specialist
DX: E04.1 Nontoxic single thyroid nodule (principal); E04.2 Nontoxic multinodular goiter; R93.3 Abnormal findings on diagnostic imaging of other parts of digestive tract; K30 Functional dyspepsia; K44.9 Diaphragmatic hernia without obstruction or gangrene
CPT/HCPCS: 70491; 74220; 82565; 84520; Q9967

== ENCOUNTER 2022-12-18 08:50 | Outpatient (CLI) | payer MEDICARE, MEDICAID, SELFPAY ==
--- NOTE | 2022-12-18 09:02 | NM_ITS ---
WS: [email or web address] EXAMINATION: NM parathyroid [id number] ORDER DATE: 12/18/2022 9:02 AM COMPARISON: CT neck 11/11/2022 HISTORY: NONTOXIC SINGLE THYROID NODULE TECHNIQUE: Parathyroid scintigraphy with 18.3 mCi Tc 99m sestamibi administered. AP and oblique views obtained with and without chin and suprasternal notch markers. Initial and 2 hour delayed imagi ng acquired. FINDINGS: Normal parotid uptake. Normal submandibular uptake. Diffuse bilateral thyroid uptake visualized on th e initial imaging with normal washout. Normal activity corresponding to RIGHT mid to upper pole thyro id nodule seen on the prior CT. This can be followed up with ultrasound. No focal cold defects. No areas of retained activity to indicate parathyroid adenoma. IMPRESSION: No evidence of parathyroid adenoma.
== END 2022-12-18 08:51 | disposition home or self-care (01) ==
PROVIDERS: PCP Nurse Practitioner Family; Visit Provider Specialist
DX: E04.1 Nontoxic single thyroid nodule (principal); M54.2 Cervicalgia; R13.19 Other dysphagia
CPT/HCPCS: 78070; A9500

== ENCOUNTER 2023-03-22 20:50 | Emergency (ER) | payer OTHER, MEDICAID, SELFPAY ==
[2023-03-22 20:55] VITALS: BP 103/61; PULSE 73; RESP 18; TEMP 36.7; O2SAT 93; BMI 25.6
--- NOTE | 2023-03-22 21:20 | CTR_ITS ---
PROCEDURE INFORMATION: Exam: CT Lumbar Spine Without Contrast Exam date and time: 03/22/2023 10:06 PM Age: 63 years old Clinical indication: Injury or trauma; Fall; Blunt trauma (contusions or hematomas); Patient HX: Patient fell bacwards outside onto concrete. Endorses head, neck, and mid back pain. ; Additional info: Fall with midline pain TECHNIQUE: Imaging protocol: Computed tomography of the lumbar spine without contrast. Radiation optimization: All CT scans at this facility use at least one of these dose optimization techniques: automated exposure control; mA and/or kV adjustment per patient size (includes targeted exams where dose is matched to clinical indication); or iterative reconstruction. REPORTING DATA: Count of CT and Cardiac NM exams in prior 12 months: This patient has received 2 known CTs and 0 known cardiac nuclear medicine studies in the 12 months prior to the current study. COMPARISON: CT lumbar spine wo con* [id number] 06/11/2017 3:06 AM RADIATION DOSE METRICS: Total DLP (mGy-cm): 784.32 FINDINGS: Bones/joints: Severe L4-L5 degenerative change with loss of disc space and osteophyte formation with advanced facet arthropathy. Diffuse osteopenia. No acute fracture. No acute subluxation. No aggressive bone lesion. Mild scoliosis. Nffjknjb-lp-chwgnf L3-5 spondylosis with a prominent broad-based disc bulging causing odqyljpp-ih-uozkmq spinal stenosis. Stomach and bowel: Moderate sigmoid diverticulosis, partially assessed. Urinary bladder: Large bladder. Vasculature: Advanced diffuse vascular calcification noted. Soft tissues: Unremarkable. CT/CT lumbar spine wo con* [id number] IMPRESSION: 1. No acute lumbar spine fracture is noted. 2. Severe L4-L5 degenerative change and hbqqftem-be-fbjoyi lower lumbar spondylosis with spinal stenosis. 3. Very large bladder. Other chronic findings. 4. Thoracic spine CT pending.
--- NOTE | 2023-03-22 21:20 | CTR_ITS ---
PROCEDURE INFORMATION: Exam: CT Thoracic Spine Without Contrast Exam date and time: 03/22/2023 10:02 PM Age: 63 years old Clinical indication: Injury or trauma; Fall; Blunt trauma (contusions or hematomas); Patient HX: Patient fell bacwards outside onto concrete. Endorses head, neck, and mid back pain. ; Additional info: Fall with pain midline TECHNIQUE: Imaging protocol: Computed tomography of the thoracic spine without contrast. Radiation optimization: All CT scans at this facility use at least one of these dose optimization techniques: automated exposure control; mA and/or kV adjustment per patient size (includes targeted exams where dose is matched to clinical indication); or iterative reconstruction. REPORTING DATA: Count of CT and Cardiac NM exams in prior 12 months: This patient has received 2 known CTs and 0 known cardiac nuclear medicine studies in the 12 months prior to the current study. COMPARISON: CT cervical spin wo con* [id number] 03/22/2023 10:00 PM RADIATION DOSE METRICS: Total DLP (mGy-cm): 770.11 FINDINGS: Bones/joints: No acute fracture. Normal alignment. No significant disc bulge or herniation. No severe spinal canal stenosis. No significant neural foraminal narrowing. Diffuse osteopenia. A few old minimal to mild upper thoracic compressions. Mild diffuse thoracic degenerative change. Mild scoliosis. Diffuse mild spondylosis. Old-appearing mild T4 compression. Soft tissues: Unremarkable. Lungs: Mild left lower lung scarring. Mild COPD. Liver: Partially assessed hepatic steatosis. Other findings: Small hiatal hernia. Right thyroid nodule, see same-day CT cervical spine. CT/CT thoracic spin wo con* [id number] IMPRESSION: 1. No definite acute fracture or acute subluxation. 2. Chronic findings. 3. Mild T4 compression appears old/nonacute. If back pain persists, advise MRI. It appears similar to a 11/11/[address]
--- NOTE | 2023-03-22 21:20 | CTR_ITS ---
PROCEDURE INFORMATION: Exam: CT Cervical Spine Without Contrast Exam date and time: 03/22/2023 10:00 PM Age: 63 years old Clinical indication: Injury or trauma; Fall; Blunt trauma; Patient HX: Patient fell bacwards outside onto concrete. Endorses head, neck, and mid back pain. ; Additional info: Fall with neck pain TECHNIQUE: Imaging protocol: Computed tomography of the cervical spine without contrast. Radiation optimization: All CT scans at this facility use at least one of these dose optimization techniques: automated exposure control; mA and/or kV adjustment per patient size (includes targeted exams where dose is matched to clinical indication); or iterative reconstruction. REPORTING DATA: Count of CT and Cardiac NM exams in prior 12 months: This patient has received 2 known CTs and 0 known cardiac nuclear medicine studies in the 12 months prior to the current study. COMPARISON: CT cervical spin wo con* [id number] 06/11/2017 1:12 AM RADIATION DOSE METRICS: Total DLP (mGy-cm): 276.47 FINDINGS: Bones/joints: No acute fracture. There is moderate cervical degenerative change with loss of disc space and osteophyte formation. No jumped, locked or perched facets are visualized. No aggressive bone lesion is noted. Diffuse osteopenia. A couple of levels of minimal chronic listhesis are probably related to facet arthropathy. Lungs: Lung apices show no acute process. Right apical scarring. Thyroid: Right thyroid 2.8 cm hypodense nodule. Vasculature: Advanced diffuse vascular calcification noted. Soft tissues: Unremarkable. CT/CT cervical spin wo con* [id number] IMPRESSION: 1. No acute fracture is seen in the cervical spine. 2. Moderate cervical degenerative change as discussed. Other chronic findings above. COMMENTS: Consistent with the [employer]'s Incidental Findings Committee white paper (J Am Lydia Radiol 2015): In patients aged 35 years and older with an incidental thyroid nodule equal to or greater than 1.[address], MRI or extrathyroidal US, further evaluation with dedicated thyroid US is recommended for patients with normal life expectancy and without comorbidities. For smaller nodules without suspicious features, no further evaluation or follow up is recommended.
--- NOTE | 2023-03-22 21:20 | CTR_ITS ---
PROCEDURE INFORMATION: Exam: CT Head Without Contrast Exam date and time: 03/22/2023 9:57 PM Age: 63 years old Clinical indication: Injury or trauma; Fall; Blunt trauma (contusions or hematomas); Patient HX: Patient fell bacwards outside onto concrete. Endorses head, neck, and mid back pain. ; Additional info: Fall with loc TECHNIQUE: Imaging protocol: Computed tomography of the head without contrast. Radiation optimization: All CT scans at this facility use at least one of these dose optimization techniques: automated exposure control; mA and/or kV adjustment per patient size (includes targeted exams where dose is matched to clinical indication); or iterative reconstruction. REPORTING DATA: Count of CT and Cardiac NM exams in prior 12 months: This patient has received 2 known CTs and 0 known cardiac nuclear medicine studies in the 12 months prior to the current study. COMPARISON: CT head wo con* [id number] 06/16/2019 10:11 AM RADIATION DOSE METRICS: Total DLP (mGy-cm): 957.38 FINDINGS: Brain: No focal hemorrhage or midline shift is identified. The ventricles and parenchyma show mild atrophy and chronic bicerebral white matter ischemic change. A few scattered old lacunes are likely, as in the left internal capsule anterior limb. Cerebral ventricles: No ventriculomegaly or evidence of hydrocephalus. Paranasal sinuses: No evidence of acute sinusitis. Mastoid air cells: Visualized mastoid air cells are well aerated. Bones/joints: No displaced skull fracture is noted. Soft tissues: Unremarkable. Vasculature: Diffuse vascular calcifications are present. CT/CT head wo con* [id number] IMPRESSION: 1. No acute intracranial abnormality. 2. Mild age-related changes.
--- NOTE | 2023-03-22 21:21 | ED_ITS ---
HPI - Head Injury 2 General: Chief complaint: Head Injury Stated complaint: FALL Time Seen by Provider: 03/22/23 20:53 Source: patient Mode of arrival: EMS Limitations: no limitations History of Present Illness: This patient was transported by EMS to the emergency department because of concerns about fall injury. Patient states that she has been abstinent from alcohol for the last 2 years up until today when she drank approximately 5 beers. She states he then decided to walk around the football field at the high school in her usual exercise to control her weight. She apparently fell 2-3 times in that location and then made her way to the [facility] and fell again striking her head on the curb. She now complains of significant headache and neck pain. She does not take any antiplatelets or blood thinning medications. She denies any other injury on initial interview. She did take her gabapentin and her Benicar this morning but has not taken any evening medications. MD Complaint: head injury and fall Place: outdoors Loss of Consciousness: unsure Location of injury: occipital Associated symptoms: Reports neck pain; Deny nausea, syncope or vomiting Review of Systems 2 Const: Denies: fever(s) or chills Eyes: Denies: change in vision ENMT: Denies: throat pain, odynophagia, nasal discharge or nasal congestion Card: Denies: chest pain, lightheadedness, syncope or pre-syncope Resp: Denies: productive cough or non-productive cough GI: Denies: abdominal pain, nausea or vomiting : Denies: flank pain, difficulty voiding or dysuria Musc: Reports: neck pain and back pain Skin/Breast: Denies: rash Neuro: Reports: headache(s); Denies: numbness in extremities, weakness in extremities, Slurred speech present, difficulty communicating thoughts or seizure-like activity Psych: Denies: anxiety, depression, suicidal ideation or homicidal ideation Herve/Lymph: Denies: easy bruising or easy bleeding PFSH ED 2 PFSH: Medical History Alcohol dependence, episodic Lyme disease Rectal bleeding Lumbar stenosis with neurogenic claudication Nicotine dependence, chewing tobacco, uncomplicated Post-traumatic stress disorder, chronic Alcohol dependence, in remission Family History Other Cancer Crohn disease Social History Smoking and tobacco/nicotine status: never used tobacco/nicotine (Chews tobacco) Alcohol intake: current Alcohol intake frequency: holidays/special occasions only Substance/Drug Use: never Additional social history: Uses chewing tobacco Lives independently: Yes Housing: Apartment Physical Exam 2 Narrative: EXAM NARRATIVE: The patient is alert makes good eye contact. She is slightly tearful when recounting her falling off the wagon but quickly recovers and continues in a goal-directed fluent fashion Const: COMMON NORMALS: no acute distress, patient oriented x3 and alert G ENERAL APPEARANCE: cooperative HENMT: COMMON NORMALS: normocephalic, EAC's normal, TM's normal bilaterally and Normal nasal mucous membranes and turbinates present HEAD & SCALP: n ormocephalic HEAD IMAGES: 1. Area of palpable tenderness without step-off or ecchymosis or skin laceration FACE & SINUS: normal facial exam and face symmetric NOSE: Normal nasal mucous membranes and turbinates present EXTERNAL AUDITORY CANAL: EAC's normal T YMPANIC MEMBRANE: TM's normal bilaterally Eye: COMMON NORMALS: Equal, round and reactive pupils present, EOMs intact bilaterally and conjunctivae normal CONJUNCTIVA: Yes conjunctivae normal P UPIL: Yes Equal, round and reactive pupils present Neck/C-Spine: COMMON NORMALS: full ROM CERVICAL SPINE: Yes cervical ROM normal, No step off deformity, Yes Paracervical muscle tenderness, No Paracervical spasm and No Trapezius muscle tenderness Resp: COMMON NORMALS: normal respiratory effort, No use of accessory muscles and clear to auscultation bilaterally AUSCULTATION: clear to auscultation bilaterally Cardio: COMMON NORMALS: regular rate, regular rhythm, No murmurs present (Cardio) and Peripheral pulses 2+ throughout RATE: regular rate RHYTHM: r egular rhythm PERIPHERAL PULSES: Peripheral pulses 2+ throughout Back/Pelvis: COMMON NORMALS: thoracic and lumbar spine normal to inspection and straight leg raise negative bilaterally PELVIS: Yes no pain with anterior-posterior compression and Yes no pain with lateral compression BACK IMAGE (FEMALE): 1. Tenderness no ecchymosis Extremity: COMMON NORMALS: normal to inspection, full ROM, capillary refill normal, no calf tenderness and no pedal edema Neuro: COMMON NORMALS: patient oriented x3, moves all extremities, no focal motor deficits and no sensory deficits noted SENSORIUM/ORIENTATION: Yes alert CRANIAL NERVES: Yes CN normal except as noted Psych: COMMON NORMALS: mental status grossly normal, denies homicidal ideation and denies suicidal ideation Skin: COMMON NORMALS: no rashes or lesions noted and turgor normal GENERAL SKIN EXAM: no rashes or lesions noted and turgor normal Course 2 Reevaluation(s): Reevaluation #1: Patient remains alert and appropriate with no new or focal findings on repeat evaluation. I shared the results of her imaging this evening. I also encouraged her to continue her daily struggle to stay sober. She is certainly stable at this time to be discharged. She will call a friend to transport her back home. We discussed return precautions as well. She voiced understanding and was appreciative of care. Time: 23:05 Vital Signs: Vital signs: Vital Signs Temperature 98.1 F 03/22/23 20:55 Pulse Rate 73 03/22/23 20:55 Respiratory Rate 18 03/22/23 20:55 Blood Pressure 103/61 03/22/23 20:55 Pulse Oximetry 93 03/22/23 20:55 Oxygen Delivery Me thod Room Air 03/22/23 20:55 MDM - Head Injury Medcial Decision Making Who has been sober for 2 yearsThis patient who has a history of recovering alcoholism years drank approximately 4-5 beers a day was resulted in her being somewhat unsteady on her feet resulting in a at least 2-3 falls 1 of which she struck her head and then developed a postconcussive headache which prompted her to come to the emergency department because of concerns about possible injury. She does not take any antiplatelets or blood thinning medications. Her clinical examination revealed her to be alert cogent and oriented without any focal findings on her neurologic examination. She had no evidence to suggest she was in altered state or under the influence of alcohol at this time. Did have suboccipital tenderness and some tenderness from the right paravertebral musculature as well as some mid back tenderness. Because of these findings imaging was ordered. She she had no concerning findings on imaging to include no evidence of intracranial hemorrhage skull fracture, cervical spine or thoracic spine or lumbar spine fracture. She had chronic changes in her lumbar spine but again as noted no new changes. She remained clinically stable and was reassured by findings this evening. She is stable to be discharged home with close follow-up and return precautions. Lab Data I reviewed the patient's lab results. Radiology Impressions Cervical Spine CT 03/22/23 21:20 IMPRESSION: 1. No acute fracture is seen in the cervical spine. 2. Moderate cervical degenerative change as discussed. Other chronic findings above. COMMENTS: Consistent with the [employer]'s Incidental Findings Committee white paper (J Am Lydia Radiol 2015): In patients aged 35 years and older with an incidental thyroid nodule equal to or greater than 1.[address], MRI or extrathyroidal US, further evaluation with dedicated thyroid US is recommended for patients with normal life expectancy and without comorbidities. For smaller nodules without suspicious features, no further evaluation or follow up is recommended. Head CT 03/22/23 21:20 IMPRESSION: 1. No acute intracranial abnormality. 2. Mild age-related changes. Lumbar Spine CT 03/22/23 21:20 IMPRESSION: 1. No acute lumbar spine fracture is noted. 2. Severe L4-L5 degenerative change and [id number] lower lumbar spondylosis with spinal stenosis. 3. Very large bladder. Other chronic findings. 4. Thoracic spine CT pending. Thoracic Spine CT 03/22/23 21:20 IMPRESSION: 1. No definite acute fracture or acute subluxation. 2. Chronic findings. 3. Mild T4 compression appears old/nonacute. If back pain persists, advise MRI. It appears similar to a 11/11/[address] All radiology interpretation(s) finalized by discharge Discharge Plan Discharge Patient Disposition: Home Clinical Impression: Closed head injury, Alcohol dependence, episodic Condition: Stable Prescriptions: No Action gabapentin 300 mg capsule 300 mg PO BID Qty: 90 0RF albuterol sulfate 90 mcg/actuation HFA aerosol inhaler 2 puff inhalation QID PRN (Reason: Shortness Of Breath) venlafaxine [Effexor XR] 75 mg capsule,extended release 24hr 75 mg PO QAM Qty: 30 2RF fluticasone propionate [Flonase Allergy Relief] 50 mcg/actuation [place],Suspension 2 spray INTRANASAL DAILY naproxen 500 mg Tablet 500 mg PO BID PRN (Reason: Pain) Hold Instructions: Resume on 10/17/21. olmesartan [Benicar] 40 mg Tablet 40 mg PO DAILY@12 budesonide-formoterol [Symbicort] 160-4.5 mcg/actuation Hfa Aerosol Inhaler 2 puff INHALATION BID aspirin 81 mg Tablet,Delayed Release (Dr/Ec) 81 mg PO DAILY Hold Instructions: Resume on 10/17/21. hydrocortisone 2.5 % cream with perineal applicator 1 applic topical BID epinephrine [EpiPen 2-Gustabo] 0.3 mg/0.3 mL Auto-Injector See Rx Instructions .ROUTE .COMPLEX Rx Instructions: as directed prn estradiol 0.1 mg/24 hr patch weekly 1 patch topical Q7D Rx Instructions: on mondays biotin 1 cap PO DAILY pantoprazole 40 mg tablet,delayed release (DR/EC) 40 mg PO BID Qty: 20 0RF Colace 100 mg capsule 100 mg PO BID ferrous gluconate 324 mg (37.5 mg iron) tablet 324 mg PO BID Discharge Orders: Discharge ED (Routine); Ordered 03/22/23 Ordered By: Westley Call Referrals: Jacqueline Urena APN [Primary Care Provider] - Discharge Diet: Usual diet Discharge Activity: Increase activity as tolerated Patient Instructions: Opioid Safety, Pain Management Activity Restrictions/Additional Instructions: As as we discussed while you are in the emergency department your imaging studies this evening were reassuring without any evidence of new or acute changes. You have some chronic changes in your lower back to include spinal stenosis and degenerative changes but none of this is new or related to your fall today. We strongly encourage you to continue your sobriety as this is in your best long-term interest. If you develop any new or worsening symptoms worsening headache weakness numbness or any other concerns return to this or the nearest emergency emergency department immediately. Coding Level of Care Code ED Office Administration for Dario Gilbert
[2023-03-22] MEDS: acetaminophen 500 mg Tablet 1000 MG PO (22:39)
== END 2023-03-22 23:24 | disposition home or self-care (01) ==
PROVIDERS: Emergency Provider Emergency Medicine; PCP Nurse Practitioner Family
DX: S09.8XXA Other specified injuries of head, initial encounter (principal); F10.20 Alcohol dependence, uncomplicated; Z79.82 Long term (current) use of aspirin; W18.39XA Other fall on same level, initial encounter; Y92.481 Parking lot as the place of occurrence of the external cause
CPT/HCPCS: 70450; 72125; 72128; 72131; 99284

== ENCOUNTER → 2023-11-30 16:00 | Outpatient (BNVA) | payer MEDICARE, MEDICAID, SELFPAY | PROVIDERS: PCP Family Medicine; Visit Provider Family Medicine | DX: R25.2 Cramp and spasm (principal) | CPT/HCPCS: 80053; 83735 ==

== ENCOUNTER 2023-12-06 23:32 | Inpatient (IN) | payer MEDICARE, MEDICAID, SELFPAY ==
[2023-12-06 23:33] VITALS: BP 109/83; PULSE 68; RESP 16; TEMP 36.7; O2SAT 92
[2023-12-07] VITALS (12 sets, daily range): BP systolic 69–121; BP diastolic 48–77; PULSE 56–75; RESP 14–18; TEMP 36.8; O2SAT 92–98
--- NOTE | 2023-12-07 00:17 | XRR_ITS ---
PROCEDURE INFORMATION: Exam: XR Chest Exam date and time: 12/07/2023 12:21 AM Age: 63 years old Clinical indication: Injury or trauma; Blunt trauma (contusions or hematomas); Patient HX: EMS arrival for syncopal episode with fall. Patient passed out while using bathroom at home and fell onto floor. Focal C/O of sacral/coccygeal pain. ETOH on board. ; Additional info: Med clearance TECHNIQUE: Imaging protocol: Radiologic exam of the chest. Views: 1 view. COMPARISON: CT chest w con* [id number] 05/02/2022 7:31 AM FINDINGS: Lungs: There is a 4 mm calcified granuloma at the right lung base. The lungs are otherwise clear. Pleural spaces: Unremarkable. No pleural effusion. No pneumothorax. Heart/Mediastinum: Unremarkable. No cardiomegaly. Bones/joints: The bones are osteopenic. There is a dextroscoliosis of the thoracic spine. XR/XR chest 1V portable [id number] IMPRESSION: No acute cardiopulmonary disease.
--- NOTE | 2023-12-07 00:17 | ED_ITS ---
Documented by User: KIZZY Barbosa 12/09/23 13:20 HPI - Syncope 2 General: Chief Complaint: Syncope Stated Complaint: Syndope, ETOH, SI Time Seen by Provider: 12/06/23 23:41 History of Present Illness: 63-year-old female comes in today for co mplaints of of EtOH intoxication and SI. Patient reports that patient had been drinking tonight and she had went to the toilet and while she was on the toilet she passed out. Patient denies any injury. The patient does state that she does not want to prolong to this world anymore and does admit to feeling suicidal. Patient denies any homicidal intent. Patient does have a history of depression and being on depression medication at 1 time. Patient does not want to be on antidepressants. Patient does take medication routinely for high blood pressure. No obvious injury is noted. Patient moves all extremities well. Patient is alert and oriented. Patient is tearful at times. Related Data Home Medications Medication Instructions Recorded Confirmed olmesartan 40 mg tablet (Benicar) 40 mg PO DAILY@12 06/16/19 12/07/23 Previous Rx's Medication Instructions Recorded thiamine mononitrate (vit B1) 100 100 mg PO DAILY 30 days #30 tabs 12/11/23 mg tablet (Vitamin B-1 (mononitrate)) Allergies Allergy/AdvReac Type Severity Reaction Status Date / Time bee venom protein (honey bee) Allergy Unknown Verified 10/01/23 14:10 celery Allergy Unknown Verified 10/01/23 14:10 Sulfa (Sulfonamide Allergy Unknown Verified 10/01/23 14:10 Antibiotics) sumatriptan [From Imitrex] Allergy Unknown Verified 10/01/23 14:10 tramadol Allergy Unknown Verified 10/01/23 14:10 Review of Systems 2 General: Reports: 10 or more systems reviewed and unremarkable except in HPI and below PFSH ED 2 PFSH: Medical History Alcohol dependence, episodic Lyme disease Rectal bleeding Lumbar stenosis with neurogenic claudication Nicotine dependence, chewing tobacco, uncomplicated Post-traumatic stress disorder, chronic Alcohol dependence, in remission Family History Other Cancer Crohn's disease Social History Smoking and tobacco/nicotine status: never used tobacco/nicotine Alcohol intake: current Alcohol intake frequency: holidays/special occasions only Substance/Drug Use: never Additional social history: Uses chewing tobacco Lives independently: Yes Housing: Apartment Physical Exam 2 Const: COMMON NORMALS: alert HENMT: COMMON NORMALS: normocephalic HEAD & SCALP: normocephalic Neck/C-Spine: COMMON NORMALS: full ROM Resp: COMMON NORMALS: normal respiratory effort and clear to auscultation bilaterally AUSCULTATION: clear to auscultation bilaterally Cardio: COMMON NORMALS: regular rate and regular rhythm RATE: regular rate RHYTHM: regular rhythm GI: COMMON NORMALS: non-tender Back/Pelvis: COMMON NORMALS: thoracic and lumbar spine normal to inspection Extremity: COMMON NORMALS: full ROM Neuro: SENSORIUM/ORIENTATION: Yes alert Skin: COMMON NORMALS: turgor normal GENERAL SKIN EXAM: turgor normal Course 2 Vital Signs: Vital signs: Vital Signs Temperature 99.3 F 12/11/23 07:39 Pulse Rate 124 H 12/11/23 07:39 Respiratory Rate 18 12/11/23 07:39 Blood Pressure 105/74 12/11/23 07:39 Pulse Oximetry 98 12/11/23 07:39 Oxygen Delivery Me thod Room Air 12/11/23 06:00 Oxygen Flow Rate 2 12/07/23 06:00 MDM - Syncope Medical Decision Making 63-year-old female comes in today for complaints of alcohol intoxication, suicidal ideation, major depression, and fall injury. On exam patient has no obvious injury to the head scalp or neck. Respirations are even. Lungs are clear to auscultation. Chest wall is nontender. Abdomen soft nontender. No pain is noted along the thoracic or lumbar spine. No obvious deformity is noted to the arms or legs. Patient does admit to being suicidal. Differential diagnosis includes not limited to alcohol intoxication, MDD, suicidal ideation, head injury, intracranial bleeding, fracture. Lab Data 12/06/23 23:54 12/06/23 23:54 Radiology Impressions Cervical Spine CT 12/07/23 00:17 IMPRESSION: No acute cervical spine fracture or listhesis. Chest X-Ray 12/07/23 00:17 IMPRESSION: No acute cardiopulmonary disease. Head CT 12/07/23 00:17 IMPRESSION: No acute intracranial abnormality. Pelvis CT 12/07/23 00:28 IMPRESSION: Osteopenia degenerative change in the pelvis. If there remains clinical suspicion for acute nondisplaced fracture of the pelvis, consider noncontrast MRI of the pelvis to further assess. Laboratory Results WBC 6.04 10^3/uL (3.29-11.43) 12/06/23 23:54 RBC 3.90 10^6/uL (3.85-5.65) 12/06/23 23:54 Hgb 12.40 g/dL (11.27-16.99) 12/06/23 23:54 Hct 36.6 % (36-47) 12/06/23 23:54 MCV 93.8 fl (85-98) 12/06/23 23:54 MCH 31.8 pg (27-33) 12/06/23 23:54 MCHC 33.9 g/dL (30-55) 12/06/23 23:54 RDW 12.7 % (12.1-15.1) 12/06/23 23:54 Plt Count 268 10^3/cmm (157-399) 12/06/23 23:54 MPV 8.8 fL (7.4-10.4) 12/06/23 23:54 Neut % (Auto) 46.3 % 12/06/23 23:54 Lymph % (Auto) 39.2 % 12/06/23 23:54 [place] % (Auto) 11.1 % 12/06/23 23:54 Eos % (Auto) 1.8 % 12/06/23 23:54 Baso % (Auto) 1.3 % 12/06/23 23:54 Neut # (Auto) 2.79 10^3/uL (1.8-7.7) 12/06/23 23:54 Lymph # (Auto) 2.4 10^3/uL (0.8-4.8) 12/06/23 23:54 [place] # (Auto) 0.7 10^3/uL (0.2-0.9) 12/06/23 23:54 Eos # (Auto) 0.1 10^3/uL (0.0-0.8) 12/06/23 23:54 Baso # (Auto) 0.1 10^3/uL (0.0-0.1) 12/06/23 23:54 Nucleated RBC % (auto) 0 % 12/06/23 23:54 Nucleated RBCs # 0.0 /100WBC 12/06/23 23:54 Sodium 134 mmol/L (136-145) L 12/06/23 23:54 Potassium 3.8 mmol/L (3.5-5.1) 12/06/23 23:54 Chloride 98 mmol/L (98-107) 12/06/23 23:54 Carbon Dioxide 21 mmol/L (22-29) L 12/06/23 23:54 Anion Gap 18.8 (5-19) 12/06/23 23:54 BUN 5 mg/dL (8-23) L 12/06/23 23:54 Creatinine 0.6 mg/dL (0.5-0.9) 12/06/23 23:54 GFR Calculation 100.3 mL/min (90-130) 12/06/23 23:54 Glucose 116 mg/dL (65-115) H 12/06/23 23:54 Calculated Osmolality 276 mOsm/kg (285-295) L 12/06/23 23:54 Calcium 11.1 mg/dL (8.5-10.5) H 12/06/23 23:54 Total Bilirubin 0.2 mg/dL (0.15-1.2) 12/06/23 23:54 AST 62 U/L (0-32) H 12/06/23 23:54 ALT 38 U/L (0-33) H 12/06/23 23:54 Alkaline Phosphatase 135 U/L (35-105) H 12/06/23 23:54 Total Protein 7.3 g/dL (6.6-8.7) 12/06/23 23:54 Albumin 4.3 g/dL (3.5-5.2) 12/06/23 23:54 Globulin 3.0 g/dL (1.3-4.6) 12/06/23 23:54 TSH 6.64 uIU/mL (0.27-4.20) H 12/06/23 23:54 Free T4 0.90 ng/dL (0.82-1.77) 12/07/23 08:27 Free T3 2.4 PG/ML (2.0-4.4) 12/07/23 03:07 Urine Color Yellow (Yellow) 12/07/23 00:26 Urine Appearance Clear (CLEAR) 12/07/23 00:26 Urine pH 5.5 (5-7) 12/07/23 00:26 Ur Specific [place] 1.003 (1.005-1.030) L 12/07/23 00:26 Urine Protein Negative (Negative) 12/07/23 00:26 Urine Glucose (UA) Negative (Normal) 12/07/23 00: Urine Ketones Negative (Negative) 12/07/23 00: Urine Blood Negative (Negative) 12/07/23 00: Urine Nitrate Negative (Negative) 12/07/23 00: Urine Bilirubin Negative (Negative) 12/07/23 00: Urine Urobilinogen 0.2 mg/dL (Negative) 12/07/23 00:26 Ur Leukocyte Esterase Negative (Negative) 12/07/23 00:26 Urine RBC 0-2 /hpf (0-2) 12/07/23 00:26 Urine WBC 0-5 /hpf (0-5) 12/07/23 00:26 Ur Squamous Epith Cells 0-5 /hpf (0-5) 12/07/23 00:26 Amorphous Sediment Not Reportable 12/07/23 00: Urine Bacteria None seen /hpf (NONE) 12/07/23 00:26 Hyaline Casts 0-4 /lpf H 12/07/23 00:26 Salicylates < 0.3 mg/dL (3-10) L 12/06/23 23:54 Urine Opiates Screen Negative ng/mL (Negative) 12/07/23 00: Acetaminophen < 5.0 ug/mL (10-30) L 12/06/23 23:54 Ur Barbiturates Screen Negative ng/mL (Negative) 12/07/23 00:26 Ur Phencyclidine Scrn Negative ng/mL (Negative) 12/07/23 00:26 Ur Amphetamines Screen Negative ng/mL (Negative) 12/07/23 00:26 U Benzodiazepines Scrn Negative ng/mL (Negative) 12/07/23 00:26 Urine Cocaine Screen Negative ng/mL (Negative) 12/07/23 00:26 U Marijuana (THC) Screen Negative ng/mL (Negative) 12/07/23 00:26 Ethyl Alcohol 167 mg/dL (0-10) H 12/07/23 08:27 Influenza Type A Ag negative (Negative) 12/07/23 12:15 Influenza Type B Ag negative (Negative) 12/07/23 12:15 RSV Antigen Negative (Negative) 12/07/23 12:15 SARS-CoV-2 Ag (Rapid) negative (Negative) 12/07/23 12:15 Discharge Plan Discharge Patient Disposition: Admitted As Inpatient Admit Provider: Aric Russ Clinical Impression: Suicidal ideations, Alcohol intoxication Condition: Stable Discharge Diet: Regular Discharge Activity: Resume usual activity Coding Level of Care Code ED Associate Manager for Chg Fwd Documented by User: Ede Osman DO 12/12/23 18:50 HPI - Syncope 2 General: Chief Complaint: Syncope Stated Complaint: Syndope, ETOH, SI Time Seen by Provider: 12/06/23 23:41 Related Data Home Medications Medication Instructions Recorded Confirmed olmesartan 40 mg tablet (Benicar) 40 mg PO DAILY@12 06/16/19 12/07/23 Previous Rx's Medication Instructions Recorded thiamine mononitrate (vit B1) 100 100 mg PO DAILY 30 days #30 tabs 12/11/23 mg tablet (Vitamin B-1 (mononitrate)) Allergies Allergy/AdvReac Type Severity Reaction Status Date / Time bee venom protein (honey bee) Allergy Unknown Verified 10/01/23 14:10 celery Allergy Unknown Verified 10/01/23 14:10 Sulfa (Sulfonamide Allergy Unknown Verified 10/01/23 14:10 Antibiotics) sumatriptan [From Imitrex] Allergy Unknown Verified 10/01/23 14:10 tramadol Allergy Unknown Verified 10/01/23 14:10 PFSH ED 2 PFSH: Medical History Alcohol dependence, episodic Lyme disease Rectal bleeding Lumbar stenosis with neurogenic claudication Nicotine dependence, chewing tobacco, uncomplicated Post-traumatic stress disorder, chronic Alcohol dependence, in remission Family History Other Cancer Crohn's disease Social History Smoking and tobacco/nicotine status: never used tobacco/nicotine Alcohol intake: current Alcohol intake frequency: holidays/special occasions only Substance/Drug Use: never Additional social history: Uses chewing tobacco Lives independently: Yes Housing: Apartment Course 2 Vital Signs: Vital signs: Vital Signs Temperature 99.3 F 12/11/23 07:39 Pulse Rate 124 H 12/11/23 07:39 Respiratory Rate 18 12/11/23 07:39 Blood Pressure 105/74 12/11/23 07:39 Pulse Oximetry 98 12/11/23 07:39 Oxygen Delivery Me thod Room Air 12/11/23 06:00 Oxygen Flow Rate 2 12/07/23 06:00 MDM - Syncope Medical Decision Making 63-year-old female comes in today for complaints of alcohol intoxication, suicidal ideation, major depression, and fall injury. On exam patient has no obvious injury to the head scalp or neck. Respirations are even. Lungs are clear to auscultation. Chest wall is nontender. Abdomen soft nontender. No pain is noted along the thoracic or lumbar spine. No obvious deformity is noted to the arms or legs. Patient does admit to being suicidal. Differential diagnosis includes not limited to alcohol intoxication, MDD, suicidal ideation, head injury, intracranial bleeding, fracture. CBC is normal. BMP shows a bicarbonate of 21, sugar 116. Alcohol level is 353 which is quite impressive. UDS is negative. Urinalysis is negative. TSH is minimally elevated. Other laboratory findings not remarkable. Medically, she is stable. She has not been combative. CTs are pending post fall. Patient continues to voice suicidality. Medically she has been stable. She is on maintenance fluid. Current vital signs blood pressure 101/68, saturation is 96%. Respirations 16, pulse is in the 60s. Her alcohol level still elevated. Will repeat when appropriate. Lab Data 12/06/23 23:54 12/06/23 23:54 Radiology Impressions Cervical Spine CT 12/07/23 00:17 IMPRESSION: No acute cervical spine fracture or listhesis. Chest X-Ray 12/07/23 00:17 IMPRESSION: No acute cardiopulmonary disease. Head CT 12/07/23 00:17 IMPRESSION: No acute intracranial abnormality. Pelvis CT 12/07/23 00:28 IMPRESSION: Osteopenia degenerative change in the pelvis. If there remains clinical suspicion for acute nondisplaced fracture of the pelvis, consider noncontrast MRI of the pelvis to further assess. Laboratory Results WBC 6.04 10^3/uL (3.29-11.43) 12/06/23 23:54 RBC 3.90 10^6/uL (3.85-5.65) 12/06/23 23:54 Hgb 12.40 g/dL (11.27-16.99) 12/06/23 23:54 Hct 36.6 % (36-47) 12/06/23 23:54 MCV 93.8 fl (85-98) 12/06/23 23:54 MCH 31.8 pg (27-33) 12/06/23 23:54 MCHC 33.9 g/dL (30-55) 12/06/23 23:54 RDW 12.7 % (12.1-15.1) 12/06/23 23:54 Plt Count 268 10^3/cmm (157-399) 12/06/23 23:54 MPV 8.8 fL (7.4-10.4) 12/06/23 23:54 Neut % (Auto) 46.3 % 12/06/23 23:54 Lymph % (Auto) 39.2 % 12/06/23 23:54 [place] % (Auto) 11.1 % 12/06/23 23:54 Eos % (Auto) 1.8 % 12/06/23 23:54 Baso % (Auto) 1.3 % 12/06/23 23:54 Neut # (Auto) 2.79 10^3/uL (1.8-7.7) 12/06/23 23:54 Lymph # (Auto) 2.4 10^3/uL (0.8-4.8) 12/06/23 23:54 [place] # (Auto) 0.7 10^3/uL (0.2-0.9) 12/06/23 23:54 Eos # (Auto) 0.1 10^3/uL (0.0-0.8) 12/06/23 23:54 Baso # (Auto) 0.1 10^3/uL (0.0-0.1) 12/06/23 23:54 Nucleated RBC % (auto) 0 % 12/06/23 23:54 Nucleated RBCs # 0.0 /100WBC 12/06/23 23:54 Sodium 134 mmol/L (136-145) L 12/06/23 23:54 Potassium 3.8 mmol/L (3.5-5.1) 12/06/23 23:54 Chloride 98 mmol/L (98-107) 12/06/23 23:54 Carbon Dioxide 21 mmol/L (22-29) L 12/06/23 23:54 Anion Gap 18.8 (5-19) 12/06/23 23:54 BUN 5 mg/dL (8-23) L 12/06/23 23:54 Creatinine 0.6 mg/dL (0.5-0.9) 12/06/23 23:54 GFR Calculation 100.3 mL/min (90-130) 12/06/23 23:54 Glucose 116 mg/dL (65-115) H 12/06/23 23:54 Calculated Osmolality 276 mOsm/kg (285-295) L 12/06/23 23:54 Calcium 11.1 mg/dL (8.5-10.5) H 12/06/23 23:54 Total Bilirubin 0.2 mg/dL (0.15-1.2) 12/06/23 23:54 AST 62 U/L (0-32) H 12/06/23 23:54 ALT 38 U/L (0-33) H 12/06/23 23:54 Alkaline Phosphatase 135 U/L (35-105) H 12/06/23 23:54 Total Protein 7.3 g/dL (6.6-8.7) 12/06/23 23:54 Albumin 4.3 g/dL (3.5-5.2) 12/06/23 23:54 Globulin 3.0 g/dL (1.3-4.6) 12/06/23 23:54 TSH 6.64 uIU/mL (0.27-4.20) H 12/06/23 23:54 Free T4 0.90 ng/dL (0.82-1.77) 12/07/23 08:27 Free T3 2.4 PG/ML (2.0-4.4) 12/07/23 03:07 Urine Color Yellow (Yellow) 12/07/23 00:26 Urine Appearance Clear (CLEAR) 12/07/23 00:26 Urine pH 5.5 (5-7) 12/07/23 00:26 Ur Specific [place] 1.003 (1.005-1.030) L 12/07/23 00:26 Urine Protein Negative (Negative) 12/07/23 00:26 Urine Glucose (UA) Negative (Normal) 12/07/23 00: Urine Ketones Negative (Negative) 12/07/23 00: Urine Blood Negative (Negative) 12/07/23 00: Urine Nitrate Negative (Negative) 12/07/23 00: Urine Bilirubin Negative (Negative) 12/07/23 00: Urine Urobilinogen 0.2 mg/dL (Negative) 12/07/23 00:26 Ur Leukocyte Esterase Negative (Negative) 12/07/23 00:26 Urine RBC 0-2 /hpf (0-2) 12/07/23 00:26 Urine WBC 0-5 /hpf (0-5) 12/07/23 00:26 Ur Squamous Epith Cells 0-5 /hpf (0-5) 12/07/23 00:26 Amorphous Sediment Not Reportable 12/07/23 00: Urine Bacteria None seen /hpf (NONE) 12/07/23 00:26 Hyaline Casts 0-4 /lpf H 12/07/23 00:26 Salicylates < 0.3 mg/dL (3-10) L 12/06/23 23:54 Urine Opiates Screen Negative ng/mL (Negative) 12/07/23 00:26 Acetaminophen < 5.0 ug/mL (10-30) L 12/06/23 23:54 Ur Barbiturates Screen Negative ng/mL (Negative) 12/07/23 00:26 Ur Phencyclidine Scrn Negative ng/mL (Negative) 12/07/23 00:26 Ur Amphetamines Screen Negative ng/mL (Negative) 12/07/23 00:26 U Benzodiazepines Scrn Negative ng/mL (Negative) 12/07/23 00:26 Urine Cocaine Screen Negative ng/mL (Negative) 12/07/23 00:26 U Marijuana (THC) Screen Negative ng/mL (Negative) 12/07/23 00:26 Ethyl Alcohol 167 mg/dL (0-10) H 12/07/23 08:27 Influenza Type A Ag negative (Negative) 12/07/23 12:15 Influenza Type B Ag negative (Negative) 12/07/23 12:15 RSV Antigen Negative (Negative) 12/07/23 12:15 SARS-CoV-2 Ag (Rapid) negative (Negative) 12/07/23 12:15 Discharge Plan Discharge Patient Disposition: Admitted As Inpatient Admit Provider: Aric Russ Clinical Impression: Suicidal ideations, Alcohol intoxication Condition: Stable Discharge Diet: Regular Discharge Activity: Resume usual activity Coding Level of Care Code ED Associate Manager for Chg Fwd Documented by User: Lima Bledsoe MD 12/07/23 13:03 HPI - Syncope 2 General: Chief Complaint: Syncope Stated Complaint: Syndope, ETOH, SI Time Seen by Provider: 12/06/23 23:41 Related Data Home Medications Medication Instructions Recorded Confirmed olmesartan 40 mg tablet (Benicar) 40 mg PO DAILY@12 06/16/19 12/07/23 Previous Rx's Medication Instructions Recorded thiamine mononitrate (vit B1) 100 100 mg PO DAILY 30 days #30 tabs 12/11/23 mg tablet (Vitamin B-1 (mononitrate)) Allergies Allergy/AdvReac Type Severity Reaction Status Date / Time bee venom protein (honey bee) Allergy Unknown Verified 10/01/23 14:10 celery Allergy Unknown Verified 10/01/23 14:10 Sulfa (Sulfonamide Allergy Unknown Verified 10/01/23 14:10 Antibiotics) sumatriptan [From Imitrex] Allergy Unknown Verified 10/01/23 14:10 tramadol Allergy Unknown Verified 10/01/23 14:10 PFSH ED 2 PFSH: Medical History Alcohol dependence, episodic Lyme disease Rectal bleeding Lumbar stenosis with neurogenic claudication Nicotine dependence, chewing tobacco, uncomplicated Post-traumatic stress disorder, chronic Alcohol dependence, in remission Family History Other Cancer Crohn's disease Social History Smoking and tobacco/nicotine status: never used tobacco/nicotine Alcohol intake: current Alcohol intake frequency: holidays/special occasions only Substance/Drug Use: never Additional social history: Uses chewing tobacco Lives independently: Yes Housing: Apartment Course 2 Vital Signs: Vital signs: Vital Signs Temperature 99.3 F 12/11/23 07:39 Pulse Rate 124 H 12/11/23 07:39 Respiratory Rate 18 12/11/23 07:39 Blood Pressure 105/74 12/11/23 07:39 Pulse Oximetry 98 12/11/23 07:39 Oxygen Delivery Me thod Room Air 12/11/23 06:00 Oxygen Flow Rate 2 12/07/23 06:00 MDM - Syncope Medical Decision Making 63-year-old female comes in today for complaints of alcohol intoxication, suicidal ideation, major depression, and fall injury. On exam patient has no obvious injury to the head scalp or neck. Respirations are even. Lungs are clear to auscultation. Chest wall is nontender. Abdomen soft nontender. No pain is noted along the thoracic or lumbar spine. No obvious deformity is noted to the arms or legs. Patient does admit to being suicidal. Differential diagnosis includes not limited to alcohol intoxication, MDD, suicidal ideation, head injury, intracranial bleeding, fracture. CBC is normal. BMP shows a bicarbonate of 21, sugar 116. Alcohol level is 353 which is quite impressive. UDS is negative. Urinalysis is negative. TSH is minimally elevated. Other laboratory findings not remarkable. Medically, she is stable. She has not been combative. CTs are pending post fall. Patient continues to voice suicidality. Medically she has been stable. She is on maintenance fluid. Current vital signs blood pressure 101/68, saturation is 96%. Respirations 16, pulse is in the 60s. Her alcohol level still elevated. Will repeat when appropriate. Patient presents for alcohol intoxication along with suicidal ideation she is medically cleared I spoke to our psychiatrist will admit here at this time. Lab Data 12/06/23 23:54 12/06/23 23:54 Radiology Impressions Cervical Spine CT 12/07/23 00:17 IMPRESSION: No acute cervical spine fracture or listhesis. Chest X-Ray 12/07/23 00:17 IMPRESSION: No acute cardiopulmonary disease. Head CT 12/07/23 00:17 IMPRESSION: No acute intracranial abnormality. Pelvis CT 12/07/23 00:28 IMPRESSION: Osteopenia degenerative change in the pelvis. If there remains clinical suspicion for acute nondisplaced fracture of the pelvis, consider noncontrast MRI of the pelvis to further assess. Laboratory Results WBC 6.04 10^3/uL (3.29-11.43) 12/06/23 23:54 RBC 3.90 10^6/uL (3.85-5.65) 12/06/23 23:54 Hgb 12.40 g/dL (11.27-16.99) 12/06/23 23:54 Hct 36.6 % (36-47) 12/06/23 23:54 MCV 93.8 fl (85-98) 12/06/23 23:54 MCH 31.8 pg (27-33) 12/06/23 23:54 MCHC 33.9 g/dL (30-55) 12/06/23 23:54 RDW 12.7 % (12.1-15.1) 12/06/23 23:54 Plt Count 268 10^3/cmm (157-399) 12/06/23 23:54 MPV 8.8 fL (7.4-10.4) 12/06/23 23:54 Neut % (Auto) 46.3 % 12/06/23 23:54 Lymph % (Auto) 39.2 % 12/06/23 23:54 [place] % (Auto) 11.1 % 12/06/23 23:54 Eos % (Auto) 1.8 % 12/06/23 23:54 Baso % (Auto) 1.3 % 12/06/23 23:54 Neut # (Auto) 2.79 10^3/uL (1.8-7.7) 12/06/23 23:54 Lymph # (Auto) 2.4 10^3/uL (0.8-4.8) 12/06/23 23:54 [place] # (Auto) 0.7 10^3/uL (0.2-0.9) 12/06/23 23:54 Eos # (Auto) 0.1 10^3/uL (0.0-0.8) 12/06/23 23:54 Baso # (Auto) 0.1 10^3/uL (0.0-0.1) 12/06/23 23:54 Nucleated RBC % (auto) 0 % 12/06/23 23:54 Nucleated RBCs # 0.0 /100WBC 12/06/23 23:54 Sodium 134 mmol/L (136-145) L 12/06/23 23:54 Potassium 3.8 mmol/L (3.5-5.1) 12/06/23 23:54 Chloride 98 mmol/L (98-107) 12/06/23 23:54 Carbon Dioxide 21 mmol/L (22-29) L 12/06/23 23:54 Anion Gap 18.8 (5-19) 12/06/23 23:54 BUN 5 mg/dL (8-23) L 12/06/23 23:54 Creatinine 0.6 mg/dL (0.5-0.9) 12/06/23 23:54 GFR Calculation 100.3 mL/min (90-130) 12/06/23 23:54 Glucose 116 mg/dL (65-115) H 12/06/23 23:54 Calculated Osmolality 276 mOsm/kg (285-295) L 12/06/23 23:54 Calcium 11.1 mg/dL (8.5-10.5) H 12/06/23 23:54 Total Bilirubin 0.2 mg/dL (0.15-1.2) 12/06/23 23:54 AST 62 U/L (0-32) H 12/06/23 23:54 ALT 38 U/L (0-33) H 12/06/23 23:54 Alkaline Phosphatase 135 U/L (35-105) H 12/06/23 23:54 Total Protein 7.3 g/dL (6.6-8.7) 12/06/23 23:54 Albumin 4.3 g/dL (3.5-5.2) 12/06/23 23:54 Globulin 3.0 g/dL (1.3-4.6) 12/06/23 23:54 TSH 6.64 uIU/mL (0.27-4.20) H 12/06/23 23:54 Free T4 0.90 ng/dL (0.82-1.77) 12/07/23 08:27 Free T3 2.4 PG/ML (2.0-4.4) 12/07/23 03:07 Urine Color Yellow (Yellow) 12/07/23 00:26 Urine Appearance Clear (CLEAR) 12/07/23 00:26 Urine pH 5.5 (5-7) 12/07/23 00:26 Ur Specific [place] 1.003 (1.005-1.030) L 12/07/23 00:26 Urine Protein Negative (Negative) 12/07/23 00:26 Urine Glucose (UA) Negative (Normal) 12/07/23 00: Urine Ketones Negative (Negative) 12/07/23 00: Urine Blood Negative (Negative) 12/07/23 00: Urine Nitrate Negative (Negative) 12/07/23 00: Urine Bilirubin Negative (Negative) 12/07/23 00: Urine Urobilinogen 0.2 mg/dL (Negative) 12/07/23 00:26 Ur Leukocyte Esterase Negative (Negative) 12/07/23 00:26 Urine RBC 0-2 /hpf (0-2) 12/07/23 00:26 Urine WBC 0-5 /hpf (0-5) 12/07/23 00:26 Ur Squamous Epith Cells 0-5 /hpf (0-5) 12/07/23 00:26 Amorphous Sediment Not Reportable 12/07/23 00:26 Urine Bacteria None seen /hpf (NONE) 12/07/23 00:26 Hyaline Casts 0-4 /lpf H 12/07/23 00:26 Salicylates < 0.3 mg/dL (3-10) L 12/06/23 23:54 Urine Opiates Screen Negative ng/mL (Negative) 12/07/23 00:26 Acetaminophen < 5.0 ug/mL (10-30) L 12/06/23 23:54 Ur Barbiturates Screen Negative ng/mL (Negative) 12/07/23 00:26 Ur Phencyclidine Scrn Negative ng/mL (Negative) 12/07/23 00:26 Ur Amphetamines Screen Negative ng/mL (Negative) 12/07/23 00:26 U Benzodiazepines Scrn Negative ng/mL (Negative) 12/07/23 00:26 Urine Cocaine Screen Negative ng/mL (Negative) 12/07/23 00:26 U Marijuana (THC) Screen Negative ng/mL (Negative) 12/07/23 00:26 Ethyl Alcohol 167 mg/dL (0-10) H 12/07/23 08:27 Influenza Type A Ag negative (Negative) 12/07/23 12:15 Influenza Type B Ag negative (Negative) 12/07/23 12:15 RSV Antigen Negative (Negative) 12/07/23 12:15 SARS-CoV-2 Ag (Rapid) negative (Negative) 12/07/23 12:15 All radiology interpretation(s) finalized by discharge Discharge Plan Discharge Patient Disposition: Admitted As Inpatient Admit Provider: Aric Russ Clinical Impression: Suicidal ideations, Alcohol intoxication Condition: Stable Discharge Diet: Regular Discharge Activity: Resume usual activity Coding Level of Care Code ED Associate Manager for Dario Gilbert
--- NOTE | 2023-12-07 00:17 | CTR_ITS ---
PROCEDURE INFORMATION: Exam: CT Head Without Contrast Exam date and time: 12/07/2023 12:37 AM Age: 63 years old Clinical indication: Injury or trauma; Blunt trauma (contusions or hematomas); Syncope and collapse; Patient HX: EMS arrival for syncopal episode with fall. Patient passed out while using bathroom at home and fell onto floor. Focal C/O of sacral/coccygeal pain. ETOH on board. TECHNIQUE: Imaging protocol: Computed tomography of the head without contrast. Radiation optimization: All CT scans at this facility use at least one of these dose optimization techniques: automated exposure control; mA and/or kV adjustment per patient size (includes targeted exams where dose is matched to clinical indication); or iterative reconstruction. COMPARISON: CT head wo con* [id number] 03/22/2023 9:57 PM RADIATION DOSE METRICS: Total DLP (mGy-cm): 990.29 FINDINGS: Brain: Normal. No hemorrhage. Unremarkable white matter. No mass effect. Cerebral ventricles: No ventriculomegaly. Paranasal sinuses: Visualized sinuses are unremarkable. No fluid levels. Mastoid air cells: Visualized mastoid air cells are well aerated. Bones: Unremarkable. No acute fracture. Soft tissues: Unremarkable. CT/CT head wo con* [id number] IMPRESSION: No acute intracranial abnormality.
--- NOTE | 2023-12-07 00:17 | ECG_ITS ---
[facility] Test Date: 2023-12-07 Pat Name: Tennille Parham Department: Room: Gender: Female [employer]: : 1960 Requested By: Armin Landrum Order Number: [id number] [id number] MD: Delvin Sousa M.D. Measurements Intervals [place] Rate: 65 P: 32 DE: 201 QRS: 43 QRSD: 93 T: 33 QT: 392 QTc: 408 Interpretive Statements SINUS RHYTHM Compared to ECG 03/16/2019 21:26:53 No significant changes Electronically Signed On 12-07-2023 12:03:24 CDT by Delvin Sousa M.D. [id number]
--- NOTE | 2023-12-07 00:17 | CTR_ITS ---
PROCEDURE INFORMATION: Exam: CT Cervical Spine Without Contrast Exam date and time: 12/07/2023 12:39 AM Age: 63 years old Clinical indication: Injury or trauma; Blunt trauma; Patient HX: EMS arrival for syncopal episode with fall. Patient passed out while using bathroom at home and fell onto floor. Focal C/O of sacral/coccygeal pain. ETOH on board. TECHNIQUE: Imaging protocol: Computed tomography of the cervical spine without contrast. Radiation optimization: All CT scans at this facility use at least one of these dose optimization techniques: automated exposure control; mA and/or kV adjustment per patient size (includes targeted exams where dose is matched to clinical indication); or iterative reconstruction. COMPARISON: CT cervical spin wo con* [id number] 03/22/2023 10:00 PM RADIATION DOSE METRICS: Total DLP (mGy-cm): 285.87 FINDINGS: Bones: Severe degenerative disc disease at C4-C5 and C5-C6. No acute cervical spine fracture or listhesis. Lungs: Lung apices are normal. Soft tissues: Unremarkable. CT/CT cervical spin wo con* [id number] IMPRESSION: No acute cervical spine fracture or listhesis.
[2023-12-07 00:25] LABS: Basophils # 0.1 10^3/uL (0.0-0.1); Basophils % 1.3 %; Eosinophils # 0.1 10^3/uL (0.0-0.8); Eosinophils % 1.8 %; Hematocrit 36.6 % (36-47); Lymphocytes # 2.4 10^3/uL (0.8-4.8); Lymphocytes % 39.2 %; Mean Corpuscular HGB Conc 33.9 g/dL (30-55); Mean Corpuscular Hemoglobin 31.8 pg (27-33); Mean Corpuscular Volume 93.8 fl (85-98); Mean Platelet Volume 8.8 fL (7.4-10.4); Monocytes # 0.7 10^3/uL (0.2-0.9); Monocytes % 11.1 %; Neutrophils # 2.79 10^3/uL (1.8-7.7); Neutrophils % 46.3 %; Nucleated Red Blood Cells % 0 %; Platelet Count 268 10^3/cmm (157-399); Red Cell Distribution Width 12.7 % (12.1-15.1); White Blood Count 6.04 10^3/uL (3.29-11.43)
--- NOTE | 2023-12-07 00:28 | CTR_ITS ---
PROCEDURE INFORMATION: Exam: CT Pelvis Without Contrast, Skeleton Exam date and time: 12/07/2023 12:42 AM Age: 63 years old Clinical indication: Injury or trauma; Blunt trauma (contusions or hematomas); Does not apply; Sacrum and coccyx; Patient HX: EMS arrival for syncopal episode with fall. Patient passed out while using bathroom at home and fell onto floor. Focal C/O of sacral/coccygeal pain. ETOH on board. ; Additional info: Fall sacral pain TECHNIQUE: Imaging protocol: Computed tomography of the pelvis without contrast. Exam focused on the skeleton. Radiation optimization: All CT scans at this facility use at least one of these dose optimization techniques: automated exposure control; mA and/or kV adjustment per patient size (includes targeted exams where dose is matched to clinical indication); or iterative reconstruction. COMPARISON: CT abdomen pelvis wo con [id number] 09/30/2021 11:12 AM RADIATION DOSE METRICS: Total DLP (mGy-cm): 345.42 FINDINGS: Intestine: Sigmoid diverticulosis is incidentally noted. Bones/joints: The bones are somewhat osteopenic which limits sensitivity of CT. There is no acute pelvic fracture identified. There is a modicum of symmetric joint space narrowing about the hips. Soft tissues: Unremarkable. CT/CT bony pelvis [id number] IMPRESSION: Osteopenia degenerative change in the pelvis. If there remains clinical suspicion for acute nondisplaced fracture of the pelvis, consider noncontrast MRI of the pelvis to further assess.
[2023-12-07 00:33] LABS: Charge for UA Resulting for Rev
[2023-12-07 00:36] LABS: Bilirubin Urine Negative (Negative); Blood Urine Negative (Negative); Glucose Urine UA Negative (Normal); Ketones Urine Negative (Negative); Leukocyte Esterase Urine Negative (Negative); Nitrate Urine Negative (Negative); Protein Urine Negative (Negative); Specific Gravity, Urine 1.003 (1.005-1.030); Urine Appearance Clear (CLEAR); Urine Color Yellow (Yellow); Urobilinogen Urine 0.2 mg/dL (Negative); pH Urine 5.5 (5-7)
[2023-12-07 00:40] LABS: Bacteria Urine None Seen /hpf; Hyaline Casts Urine 0-4 /lpf; RBC Urine 0-2 /hpf (0-2); Squamous Epithelial Cell Urine 0-5 /hpf (0-5); WBC Urine 0-5 /hpf (0-5)
[2023-12-07 00:43] LABS: Amphetamines Screen Urine Negative (Negative); Barbiturates Screen Urine Negative (Negative); Benzodiazepines Screen Urine Negative (Negative); Cocaine Screen Urine Negative (Negative); Opiate Screen Urine Negative (Negative); PCP Screen Urine Negative (Negative); THC Screen Urine Negative (Negative)
[2023-12-07 00:51] LABS: UA Slide Review UA Slide Review Perf
[2023-12-07 00:56] LABS: Alanine Aminotransferase 38 U/L (0-33); Albumin Level 4.3 g/dL (3.5-5.2); Alkaline Phosphatase 135 U/L (35-105); Anion Gap 18.8 (5-19); Aspartate Amino Transferase 62 U/L (0-32); Blood Urea Nitrogen 5 mg/dL (8-23); Calcium 11.1 mg/dL (8.5-10.5); Carbon Dioxide 21 mmol/L (22-29); Chloride 98 mmol/L (98-107); Glomerular Filtration Rate 100.3 mL/min (90-130); Glucose 116 mg/dL (65-115); Osmolality Calculated 276 mOsm/kg (285-295); Potassium 3.8 mmol/L (3.5-5.1); Sodium 134 mmol/L (136-145); Thyroid Stimulating Hormone 6.64 uIU/mL (0.27-4.20); Total Bilirubin 0.2 mg/dL (0.15-1.2); Total Protein 7.3 g/dL (6.6-8.7)
[2023-12-07 00:58] LABS: Acetaminophen < 5.0 ug/mL (10-30); Alcohol Level 353 mg/dL (0-10); Salicylate < 0.3 mg/dL (3-10)
[2023-12-07 03:30] LABS: Alcohol Level 284 mg/dL (0-10)
[2023-12-07] MEDS: sodium chloride 0.9% 1,000 ML 999 ML IV (04:34)
[2023-12-07] MEDS: sodium chloride 0.9% 1,000 ML 150 ML IV ×2 (05:37→13:19)
[2023-12-07 08:52] LABS: Alcohol Level 167 mg/dL (0-10)
--- NOTE | 2023-12-07 10:41 | PC.PHAR ---
Pharmacy states pt has only filled one medication in the last year. Olmesartan 40mg once daily last fill 03/31/23 30ds.
[2023-12-07 12:10] LABS: T3 Free 2.4 PG/ML (2.0-4.4)
[2023-12-07 12:39] LABS: Influenza A by IFA negative (Negative); Influenza B by IFA negative (Negative)
[2023-12-07 12:41] LABS: SARS Covid-2 Antigen negative (Negative)
[2023-12-07 12:48] LABS: RSV Transfer Patient (ED) Negative (Negative)
[2023-12-07] MEDS: LORazepam 2 mg/mL INJ 1 mL 1 MG IM (13:17)
--- NOTE | 2023-12-07 18:11 | PC.NURSE ---
Patient arrived to unit with staff. Patient cooperative, tearful. Patient oriented to unit and unit rules. Questions answered. Patient's medications not restarted as medications haven't been filled in one year.
[2023-12-07] MEDS: trazodone 50 mg Tablet PO (19:58)
[2023-12-08 04:00] VITALS: BP 127/80; PULSE 62; RESP 16; TEMP 36.8; O2SAT 97
[2023-12-08 04:05] VITALS: BP 127/80; PULSE 62; RESP 16; TEMP 36.8; O2SAT 97
[2023-12-08 08:00] VITALS: BP 119/75; PULSE 53; RESP 18; TEMP 37.1; O2SAT 96
[2023-12-08] MEDS: folic acid 1 mg Tablet PO (08:24)
[2023-12-08] MEDS: thiamine 100 mg Tablet PO (08:24)
[2023-12-08] MEDS: multivitamin therapeutic Tablet 1 TAB PO (08:24)
[2023-12-08] MEDS: acetaminophen 325 mg Tablet 650 MG PO (08:40)
[2023-12-08] MEDS: hyDROXYzine 25 mg Capsule 50 MG PO (08:40)
[2023-12-08] MEDS: docusate sodium 100 mg Capsule PO ×2 (08:41→19:48)
[2023-12-08 12:00] VITALS: BP 109/76; PULSE 65; RESP 18; TEMP 36.6; O2SAT 98
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
[2023-12-08 16:00] VITALS: BP 108/74; PULSE 67; RESP 18; TEMP 37.1; O2SAT 92
[2023-12-08] MEDS: trazodone 50 mg Tablet PO (19:45)
[2023-12-08 20:00] VITALS: BP 127/85; PULSE 60; RESP 16; O2SAT 97
[2023-12-09 00:58] VITALS: BP 113/74; PULSE 68; RESP 16; TEMP 36.7; O2SAT 95
[2023-12-09 04:00] VITALS: BP 110/74; PULSE 66; RESP 16; TEMP 36.9; O2SAT 95
[2023-12-09 08:00] VITALS: BP 125/80; PULSE 61; RESP 16; O2SAT 95
--- NOTE | 2023-12-09 08:20 | W.PM.NPUPNS ---
Subjective NPU Subjective: Patient presented today reporting that she is feeling much better. Spoke with her mother and her mother is really hopeful that she comes home sooner rather than later. She reports that she has gathered several supports I will be available if she starts contemplating drinking. She denies having any alcohol in the house and reports an openness to some possible resources but was resistant to any intensive sober living treatment. At this point she was not interested in medication. Mental Status Exam MSE Comments: This is an overweight well-developed white female in a hospital scrubs with limited grooming and limited eye contact. No abnormal movements except for psychomotor retardation. Cooperative with exam in mild distress. Speech was decreased rate and volume. Mood was described as a little better than yesterday I just needed a break. Affect was subdued. Thought process linear. Thought content: Patient denied suicidal or homicidal ideations, she denied any delusions and no specific delusions were noted. She denied auditory or visual hallucinations. The patient reported experiencing visual disturbances and anxiety. The patient denied having any current thoughts of self-harm or harm to others. The patient reported their mood as very improved. Attention and concentration were limited and memory was mostly reliable, but none were formally tested. She is alert and oriented x person and place. Insight, judgment and impulse control were all limited. Vitals/I&O/Wt Last Vital Signs Temp 98.5 F 12/09/23 04:00 Pulse 61 12/09/23 08:00 Resp 16 12/09/23 08:00 BP 125/80 12/09/23 08:00 Pulse Ox 95 12/09/23 08:00 O2 Del Method Room Air 12/07/23 16:15 O2 Flow Rate 2 12/07/23 06:00 Weight last 48 hrs Weight 74.843 kg Data NPU 12/06/23 23:54 12/06/23 23:54 A&P Assessment and plan (1) Post-traumatic stress disorder, chronic: (2) Alcohol dependence, episodic: (3) Suicidal ideations: (4) Alcohol intoxication: (5) Alcohol withdrawal: (6) Depression, unspecified: Plan Patient is a 63-year-old white female with known history of mental health issues, trauma and some addiction issues with previous inpatient services and extensive outpatient treatment who presented to the emergency department with a blood alcohol of 350 and not on medication but open to treatment. The patient has a history of mental health issues, including depression and anxiety, and has been dissatisfied with previous medications. The patient has been dealing with stress from caring for their mother, who has Alzheimer's, and has been drinking alcohol again. The patient reported experiencing visual disturbances. 1. Consider initiation of medication 2. Recommend sober living treatment after discharge at the highest level of care to which the patient is willing to commit. 3. Continue every 15 minute checks for safety. 4. Obtain collateral information 5. Encourage individual, group and milieu therapies. Involuntary Hold Information 96 Hour Hold: 96 Hour Involuntary Admission: No Attestations NPU Medical Necessity Statement*: Inpatient psychiatric hospitalization is medically necessary and the clinically appropriate intervention at this time. We will monitor medications and make changes as indicated. Patient's likely length of stay is 2-4 days. Coding Level of Care Code Acute Code for [facility] Fwd Diagnoses Post-traumatic stress disorder, chronic F43.12 Alcohol dependence, episodic F10.20 Suicidal ideations R45.851 Alcohol intoxication F10.929 Alcohol withdrawal F10.939 Depression, unspecified F32.A
[2023-12-09] MEDS: docusate sodium 100 mg Capsule PO (08:24)
[2023-12-09] MEDS: thiamine 100 mg Tablet PO (08:24)
[2023-12-09] MEDS: folic acid 1 mg Tablet PO (08:24)
[2023-12-09] MEDS: multivitamin therapeutic Tablet 1 TAB PO (08:24)
[2023-12-09 12:00] VITALS: BP 106/72; PULSE 88; RESP 16; O2SAT 98
[2023-12-09 16:00] VITALS: BP 129/86; PULSE 86; RESP 16; O2SAT 100
[2023-12-09 20:00] VITALS: BP 138/95; PULSE 82; RESP 18; TEMP 36.7; O2SAT 97
[2023-12-09] MEDS: magnesium hydroxide 30 mL UDC PO (20:10)
[2023-12-10] VITALS: BP 120/80; PULSE 88; RESP 16; O2SAT 96
[2023-12-10 04:00] VITALS: BP 126/78; PULSE 78; RESP 16; TEMP 36.4; O2SAT 96
--- NOTE | 2023-12-10 07:42 | PC.NURSE ---
NEW ORDERS RECEIVED TO DISCONTINUE CIWA DUE TO PT NOT SCORING AND HAS NOT RECEIVED OR NEEDED ANY ATIVAN. SEIZURE/ASPIRATION PRECAUTIONS DISCONTINUED AND VITALS CHANGED FROM Q 4 HOUR BACK TO Q HOUR. ORDERS PLACED AND PT EDUCATED. VERBALIZED UNDERSTANDING. ALL QUESTIONS ANSWERED AND SUPPORT WAS VOICED.
[2023-12-10] MEDS: multivitamin therapeutic Tablet 1 TAB PO (08:30)
[2023-12-10] MEDS: folic acid 1 mg Tablet PO (08:30)
[2023-12-10] MEDS: thiamine 100 mg Tablet PO (08:30)
--- NOTE | 2023-12-10 10:02 | PC.NURSE ---
IN ROOM, PT DENIES PAIN, DENIES SI/HI AND AVH AT THIS TIME. PT ALSO DENIES HAVING ANY ALCOHOL WITHDRAWAL SYMPTOMS. CIWA DISCONTINUED. RATES ANXIETY 04/29 AND DEPRESSION 06/27. PT STATES SHE SLEPT GOOD LAST NIGHT. PT STATES GOAL FOR THE DAY IS TO DISCHARGE AND GO SEE MY MOM AND MY DOGS. ALL QUESTIONS ANSWERED AND SUPPORT VOICED.
[2023-12-10 13:54] VITALS: BP 131/90; PULSE 81; RESP 16; TEMP 36.7; O2SAT 99
--- NOTE | 2023-12-10 19:15 | W.PM.NPUPNS ---
Subjective NPU Subjective: Patient presents today reporting that she is feeling better and optimistic about things moving forward. She reports that she would be willing to return to her provider at [facility] and follow recommendations. We talked about different medications like Campral and ReVia and she was open to discussing that with her outpatient provider. We discussed the plan for discharge tomorrow and she continued to report a plan to avoid drinking moving forward. Mental Status Exam MSE Comments: This is an overweight well-developed white female in a hospital scrubs with limited grooming and limited eye contact. No abnormal movements except for psychomotor retardation. Cooperative with exam in mild distress. Speech was decreased rate and volume. Mood was described as better. Affect was subdued. Thought process linear. Thought content: Patient denied suicidal or homicidal ideations, she denied any delusions and no specific delusions were noted. She denied auditory or visual hallucinations. The patient reported experiencing visual disturbances and anxiety. The patient denied having any current thoughts of self-harm or harm to others. The patient reported their mood as very improved. Attention and concentration were limited and memory was mostly reliable, but none were formally tested. She is alert and oriented x person and place. Insight, judgment and impulse control were all limited. Vitals/I&O/Wt Last Vital Signs Temp 98.1 F 12/10/23 13:54 Pulse 81 12/10/23 13:54 Resp 16 12/10/23 13:54 BP 131/90 12/10/23 13:54 Pulse Ox 99 12/10/23 13:54 O2 Del Method Room Air 12/07/23 16:15 O2 Flow Rate 2 12/07/23 06:00 Data NPU 12/06/23 23:54 12/06/23 23:54 A&P Assessment and plan (1) Post-traumatic stress disorder, chronic: (2) Alcohol dependence, episodic: (3) Suicidal ideations: (4) Alcohol intoxication: (5) Alcohol withdrawal: (6) Depression, unspecified: Plan Patient is a 63-year-old white female with known history of mental health issues, trauma and some addiction issues with previous inpatient services and extensive outpatient treatment who presented to the emergency department with a blood alcohol of 350 and not on medication but open to treatment. The patient has a history of mental health issues, including depression and anxiety, and has been dissatisfied with previous medications. The patient has been dealing with stress from caring for their mother, who has Alzheimer's, and has been drinking alcohol again. The patient reported experiencing visual disturbances. 1. Consider initiation of medication 2. Recommend sober living treatment after discharge at the highest level of care to which the patient is willing to commit. 3. Continue every 15 minute checks for safety. 4. Obtain collateral information 5. Encourage individual, group and milieu therapies. Involuntary Hold Information 96 Hour Hold: 96 Hour Involuntary Admission: No Attestations NPU Medical Necessity Statement*: Inpatient psychiatric hospitalization is medically necessary and the clinically appropriate intervention at this time. We will monitor medications and make changes as indicated. Patient's likely length of stay is 1-3 days. Coding Level of Care Code Acute Code for [facility] Fwd Diagnoses Post-traumatic stress disorder, chronic F43.12 Alcohol dependence, episodic F10.20 Suicidal ideations R45.851 Alcohol intoxication F10.929 Alcohol withdrawal F10.939 Depression, unspecified F32.A
[2023-12-10 19:34] VITALS: BP 131/92; PULSE 85; RESP 18; TEMP 36.7; O2SAT 98
[2023-12-11 06:00] VITALS: BP 105/74; PULSE 124; RESP 18; TEMP 37.4; O2SAT 98
--- NOTE | 2023-12-11 07:03 | P.NPUDS_ITS ---
Diagnoses at Discharge Discharge Diagnosis (1) Post-traumatic stress disorder, chronic: Status: Acute (2) Alcohol dependence, episodic: Status: Acute (3) Suicidal ideations: Status: Acute (4) Alcohol intoxication: Status: Acute (5) Alcohol withdrawal: Status: Acute (6) Depression, unspecified: Status: Acute Reason for Visit Reason for Visit: Syndope, ETOH, SI Involuntary Hold Information 96 Hour Hold: 96 Hour Involuntary Admission: No Mental Status Exam MSE Comments: This is an overweight well-developed white female in a hospital scrubs with limited grooming and limited eye contact. No abnormal movements except for psychomotor retardation. Cooperative with exam in mild distress. Speech was decreased rate and volume. Mood was described as better. Affect was subdued. Thought process linear. Thought content: Patient denied suicidal or homicidal ideations, she denied any delusions and no specific delusions were noted. She denied auditory or visual hallucinations. The patient reported experiencing visual disturbances and anxiety. The patient denied having any current thoughts of self-harm or harm to others. The patient reported their mood as very improved. Attention and concentration were limited and memory was mostly reliable, but none were formally tested. She is alert and oriented x person and place. Insight, judgment and impulse control were all limited. Discharge Data Studies Completed and Pending: Completed Studies During Hospitalization Category Date Time Status CT cervical spin wo con* [id number] Stat Cat Scan 12/07/23 00:[address] head wo con* 7 0450 Stat Cat Scan 12/07/23 00:[address] pelvis wo bone [CT bony pelvis 7 4554] Stat Cat Scan 12/07/23 00:28 Completed XR chest 1V jerman ble [id number] Stat Exams 12/07/23 00:17 Completed Radiology Impressions Cervical Spine CT 12/07/23 00:17 IMPRESSION: No acute cervical spine fracture or listhesis. Chest X-Ray 12/07/23 00:17 IMPRESSION: No acute cardiopulmonary disease. Head CT 12/07/23 00:17 IMPRESSION: No acute intracranial abnormality. Pelvis CT 12/07/23 00:28 IMPRESSION: Osteopenia degenerative change in the pelvis. If there remains clinical suspicion for acute nondisplaced fracture of the pelvis, consider noncontrast MRI of the pelvis to further assess. Laboratory Results WBC 6.04 10^3/uL (3.2 9-11.43) 12/06/23 23:54 RBC 3.90 10^6/uL (3.8 5-5.65) 12/06/23 23:54 Hgb 12.40 g/dL (11.27 -16.99) 12/06/23 23:54 Hct 36.6 % (36-47) 12/06/23 23:54 MCV 93.8 fl (85-98) 12/06/23 23:54 MCH 31.8 pg (27-33) 12/06/23 23:54 MCHC 33.9 g/dL (30-55) 12/06/23 23:54 RDW 12.7 % (12.1-15.1 ) 12/06/23 23:54 Plt Count 268 10^3/cmm (157 -399) 12/06/23 23:54 MPV 8.8 fL (7.4-10.4) 12/06/23 23:54 Neut % (Auto) 46.3 % 12/06/23 23:54 Lymph % (Auto) 39.2 % 12/06/23 23:54 [place] % (Auto) 11.1 % 12/06/23 23:54 Eos % (Auto) 1.8 % 12/06/23 23:54 Baso % (Auto) 1.3 % 12/06/23 23:54 Neut # (Auto) 2.79 10^3/uL (1.8 -7.7) 12/06/23 23:54 Lymph # (Auto) 2.4 10^3/uL (0.8- 4.8) 12/06/23 23:54 [place] # (Auto) 0.7 10^3/uL (0.2- 0.9) 12/06/23 23:54 Eos # (Auto) 0.1 10^3/uL (0.0- 0.8) 12/06/23 23:54 Baso # (Auto) 0.1 10^3/uL (0.0- 0.1) 12/06/23 23:54 Nucleated RBC % (a uto) 0 % 12/06/23 23:54 Nucleated RBCs # 0.0 /100WBC 12/06/23 23:54 Sodium 134 mmol/L (136-1 45) L 12/06/23 23:54 Potassium 3.8 mmol/L (3.5-5 .1) 12/06/23 23:54 Chloride 98 mmol/L (98-107 ) 12/06/23 23:54 Carbon Dioxide 21 mmol/L (22-29) L 12/06/23 23:54 Anion Gap 18.8 (5-19) 12/06/23 23:54 BUN 5 mg/dL (8-23) L 12/06/23 23:54 Creatinine 0.6 mg/dL (0.5-0. 9) 12/06/23 23:54 GFR Calculation 100.3 mL/min (90- 130) 12/06/23 23:54 Glucose 116 mg/dL (65-115 ) H 12/06/23 23:54 Calculated Osmolal ity 276 mOsm/kg (285- 295) L 12/06/23 23:54 Calcium 11.1 mg/dL (8.5-1 0.5) H 12/06/23 23:54 Total Bilirubin 0.2 mg/dL (0.15-1 .2) 12/06/23 23:54 AST 62 U/L (0-32) H 12/06/23 23:54 ALT 38 U/L (0-33) H 12/06/23 23:54 Alkaline Phosphata se 135 U/L (35-105) H 12/06/23 23:54 Total Protein 7.3 g/dL (6.6-8.7 ) 12/06/23 23:54 Albumin 4.3 g/dL (3.5-5.2 ) 12/06/23 23:54 Globulin 3.0 g/dL (1.3-4.6 ) 12/06/23 23:54 TSH 6.64 uIU/mL (0.27 -4.20) H 12/06/23 23:54 Free T4 0.90 ng/dL (0.82- 1.77) 12/07/23 08:27 Free T3 2.4 PG/ML (2.0-4. 4) 12/07/23 03:07 Urine Color Yellow (Yellow) 12/07/23 00:26 Urine Appearance Clear (CLEAR) 12/07/23 00:26 Urine pH 5.5 (5-7) 12/07/23 00:26 Ur Specific [place] 1.003 (1.005-1.0 30) L 12/07/23 00:26 Urine Protein Negative (Negati ve) 12/07/23 00:26 Urine Glucose (UA) Negative (Normal ) 12/07/23 00:26 Urine Ketones Negative (Negati ve) 12/07/23 00:26 Urine Blood Negative (Negati ve) 12/07/23 00:26 Urine Nitrate Negative (Negati ve) 12/07/23 00:26 Urine Bilirubin Negative (Negati ve) 12/07/23 00:26 Urine Urobilinogen 0.2 mg/dL (Negati ve) 12/07/23 00:26 Ur Leukocyte Breana ase Negative (Negati ve) 12/07/23 00:26 Urine RBC 0-2 /hpf (0-2) 12/07/23 00:26 Urine WBC 0-5 /hpf (0-5) 12/07/23 00:26 Ur Squamous Epith Cells 0-5 /hpf (0-5) 12/07/23 00:26 Amorphous Sediment Not Reportable 12/07/23 00:26 Urine Bacteria None seen /hpf (N ONE) 12/07/23 00:26 Hyaline Casts 0-4 /lpf H 12/07/23 00:26 Salicylates < 0.3 mg/dL (3-10 ) L 12/06/23 23:54 Urine Opiates Scre en Negative ng/mL (N egative) 12/07/23 00:26 Acetaminophen < 5.0 ug/mL (10-3 0) L 12/06/23 23:54 Ur Barbiturates Sc reen Negative ng/mL (N egative) 12/07/23 00:26 Ur Phencyclidine S crn Negative ng/mL (N egative) 12/07/23 00:26 Ur Amphetamines Sc reen Negative ng/mL (N egative) 12/07/23 00:26 U Benzodiazepines Scrn Negative ng/mL (N egative) 12/07/23 00:26 Urine Cocaine Scre en Negative ng/mL (N egative) 12/07/23 00:26 U Marijuana (THC) Screen Negative ng/mL (N egative) 12/07/23 00:26 Ethyl Alcohol 167 mg/dL (0-10) H 12/07/23 08:27 Influenza Type A A g negative (Negati ve) 12/07/23 12:15 Influenza Type B A g negative (Negati ve) 12/07/23 12:15 RSV Antigen Negative (Negati ve) 12/07/23 12:15 SARS-CoV-2 Ag (Rap id) negative (Negati ve) 12/07/23 12:15 Vitals: Last Vital Signs Temp 99.3 F 12/11/23 06:00 Pulse 124 H 12/11/23 06:00 Resp 18 12/11/23 06:00 BP 105/74 12/11/23 06:00 Pulse Ox 98 12/11/23 06:00 O2 Del Method Room Air 12/11/23 06:00 O2 Flow Rate 2 12/07/23 06:00 Discharge Plan Discharge Patient Disposition: Home Condition: Stable Prescriptions: New Vitamin B-1 (mononitrate) 100 mg Tablet 100 mg PO DAILY 30 Days Qty: 30 1RF Continued olmesartan [Benicar] 40 mg Tablet 40 mg PO DAILY@12 Discharge Orders: Discharge Order (Routine); Ordered 12/11/23 Ordered By: Aric Russ Referrals: [facility] [Outside] aNncy Richardson MD [Primary Care Provider] - Discharge Diet: Regular Discharge Activity: Resume usual activity Patient Instructions: Opioid Safety Discharge Attestations NPU Time Spent in Discharge Care*: less than 30 min Specific Discharge Activities: Specific discharge activities: educating patient, discussing with case management rn/social workers/dc planners, do cumenting/other paperwork and evaluating patient/reviewing data Status at Discharge: Cognitive status at discharge: cognitively intact , Behavioral status at discharge: cooperative , Coding Level of Care Code Acute Code for [facility] Diagnoses Post-traumatic stress disorder, chronic F43.12 Alcohol dependence, episodic F10.20 Suicidal ideations R45.851 Alcohol intoxication F10.929 Alcohol withdrawal F10.939 Depression, unspecified F32.A
[2023-12-11 07:39] VITALS: BP 105/74; PULSE 124; RESP 18; TEMP 37.4; O2SAT 98
[2023-12-11] MEDS: multivitamin therapeutic Tablet 1 TAB PO (08:25)
[2023-12-11] MEDS: folic acid 1 mg Tablet PO (08:25)
[2023-12-11] MEDS: thiamine 100 mg Tablet PO (08:25)
--- NOTE | 2023-12-11 09:22 | DCPLANNER ---
IMM completed 12/11/23 @ 0904. Pt was given a copy of rights and she stated she understood her rights.
== END 2023-12-11 11:20 | disposition home or self-care (01) | DRG 897 ==
LOC: ER 12-07 13:03 → NP 12-07 15:10
PROVIDERS: Emergency Medicine; Nurse Practitioner Family; Admitting Provider Psychiatry & Neurology Psychiatry; Emergency Provider Emergency Medicine; PCP Family Medicine; Visit Provider Psychiatry & Neurology Psychiatry
DX: F10.229 Alcohol dependence with intoxication, unspecified (principal); R45.851 Suicidal ideations; Y90.8 Blood alcohol level of 240 mg/100 ml or more; F32.9 Major depressive disorder, single episode, unspecified; F41.9 Anxiety disorder, unspecified; F17.220 Nicotine dependence, chewing tobacco, uncomplicated; F43.12 Post-traumatic stress disorder, chronic; W19.XXXA Unspecified fall, initial encounter; R55 Syncope and collapse; Z11.52 Encounter for screening for COVID-19
CPT/HCPCS: 36415; 70450; 71045; 72125; 72192; 80053; 80306; 80307; 81003; 81015; 84439; 84443; 84481; 85025; 87426; 87804; 87899; 93005; 96360; 96361; 96372; 97150; 97165; 99285; J2060; J7030

== ENCOUNTER → 2023-12-14 15:04 | Outpatient (BNVA) | payer MEDICARE, MEDICAID, SELFPAY | PROVIDERS: PCP Family Medicine; Visit Provider Family Medicine | DX: R05.9 Cough, unspecified (principal) | CPT/HCPCS: 87400; 87426 ==

== ENCOUNTER 2023-12-26 10:17 | Emergency (ER) | payer MEDICARE, MEDICAID, SELFPAY ==
--- NOTE | 2023-12-26 10:20 | ECG_ITS ---
[facility] Test Date: 2023-12-26 Pat Name: Tennille Parham Department: Room: Gender: Female Chamber Magistrate: : 1960 Requested By: Gayla Rutledge Order Number: [id number] Matty MD: WING PAGAN Measurements Intervals [place] Rate: 72 P: 39 [place]: 206 QRS: 62 QRSD: 89 T: 39 QT: 369 QTc: 404 Interpretive Statements SINUS RHYTHM LOW QRS VOLTAGE IN PRECORDIAL LEADS [QRS DEFLECTION < 1.0 mV IN CHEST LEADS] Compared to ECG 12/07/2023 00:33:17 Low QRS voltage now present Electronically Signed On 12-27-2023 18:52:00 CDT by WING APGAN [email or web address]
[2023-12-26 10:32] VITALS: BP 101/69; PULSE 73; RESP 18; TEMP 36.8; O2SAT 94; BMI 24.6
--- NOTE | 2023-12-26 10:36 | W.ED.ALCOHOL ---
HPI - Alcohol General: Chief Complaint: Alcohol Stated Complaint: pain all over; mhe Time Seen by Provider: 12/26/23 10:20 History of Present Illness: 63-year-old female with a history of alcohol abuse, PTSD and tobacco dependence who presents to the emergency room apparently intoxicated. She is very emotional and difficult to obtain any useful history from. At 1 point she says she just does not want to be alive. But does not really say she is suicidal. EMS reports that apparently a neighbor had found her down on the ground and she could not get up. She claims she had exactly 2 beers this morning. Related Data Home Medications Medication Instructions Recorded Confirmed olmesartan 40 mg tablet (Benicar) 40 mg PO DAILY@12 06/16/19 12/14/23 Previous Rx's Medication Instructions Recorded thiamine mononitrate (vit B1) 100 100 mg PO DAILY 30 days #30 tabs 12/11/23 mg tablet (Vitamin B-1 (mononitrate)) azithromycin 250 mg tablet See Rx Instructions PO .COMPLEX #6 12/14/23 (Zithromax Z-Gustabo) tabs methylprednisolone 4 mg tablets in See Rx Instructions PO PER PKG DIR 12/14/23 a dose pack (Medrol (Gustabo)) #21 ea promethazine-DM 6.25 mg-15 mg/5 mL 5 ml PO Q6H PRN cough #160 mL 12/14/23 oral syrup Allergies Allergy/AdvReac Type Severity Reaction Status Date / Time bee venom protein (honey bee) Allergy Unknown Verified 10/01/23 14:10 celery Allergy Unknown Verified 10/01/23 14:10 Sulfa (Sulfonamide Allergy Unknown Verified 10/01/23 14:10 Antibiotics) sumatriptan [From Imitrex] Allergy Unknown Verified 10/01/23 14:10 tramadol Allergy Unknown Verified 10/01/23 14:10 Review of Systems General: Reports: ROS unobtainable due to mental status PFSH ED PFSH: Medical History Alcohol dependence, episodic Lyme disease Rectal bleeding Lumbar stenosis with neurogenic claudication Nicotine dependence, chewing tobacco, uncomplicated Post-traumatic stress disorder, chronic Alcohol dependence, in remission Family History Other Cancer Crohn's disease Social History Smoking and tobacco/nicotine status: never used tobacco/nicotine Alcohol intake: current Alcohol intake frequency: holidays/special occasions only Substance/Drug Use: never Additional social history: Uses chewing tobacco Lives independently: Yes Housing: Apartment Physical Exam Narrative: EXAM NARRATIVE: General: Alert, no acute distress. Skin: Warm, dry. Head: Normocephalic, atraumatic. Neck: Supple, trachea midline. Eye: Extraocular movements are intact. Ears, nose, mouth and throat: Tacky oral mucosa Cardiovascular: Regular, Normal peripheral perfusion. Respiratory: Lungs are clear to auscultation, respirations are non-labored, breath sounds are equal, Symmetrical chest wall expansion. Gastrointestinal: Soft, Nontender, Non distended Musculoskeletal: Normal ROM, no deformity. Neurological: Alert No focal neurological deficit observed. Psychiatric: Appears intoxicated, agitated at times tearful at times Course Vital Signs: Vital signs: Vital Signs Temperature 98.3 F 12/26/23 10:32 Pulse Rate 73 12/26/23 12:02 Respiratory Rate 18 12/26/23 10:32 Blood Pressure 93/70 12/26/23 12:02 Pulse Oximetry 95 12/26/23 12:02 Oxygen Delivery Me thod Room Air 12/26/23 10:32 MDM - Alcohol Medical Decision Making Medical decision making: Differential diagnosis including but not limited to and based on the above HPI, review of systems and physical exam: In this patient with altered mental status: Stroke. Hypoglycemia. Metabolic encephalopathy. Infections such as pneumonia, urinary tract infection, Covid-19, Influenza. Electrolyte abnormalities such as hypernatremia. Renal failure / uremia. Hepatic encephalopathy. Hypoxemia. Hypercapnic respiratory failure. Psychosis. Drug or alcohol intoxication. Medication overdose. Orders placed to evaluate differential diagnosis based on the above differential, HPI and physical exam EKG: Time 1104. Rate 72. Normal sinus rhythm, No ST-T changes, no ectopy, normal NV & QRS intervals, This was reviewed and interpreted by myself the ER physician at 1107 Lab Review: Laboratory results were reviewed and interpreted by myself the emergency room physician. No leukocytosis. No anemia. Mild elevation in her LFTs which would be expected with her alcohol abuse. No renal failure. Her blood alcohol level is 297. This is familiar territory for her. She has about 8 alcohol measurements in the chart and the majority of these are between 250 and 400. I reviewed the patient's medical record. Reexamination: Patient remained stable. She is still slightly intoxicated but maintaining her airway. No increased work of breathing. No focal motor deficits. She continues to deny any suicidal ideation. She has become quite somnolent at this point. Again she is maintaining her airway and oxygenating well. She has no family or friends so we are letting her sleep at all here for a while Assessment and plan: Alcohol abuse. Alcohol intoxication Dehydration ?Normal saline bolus. - Discharged home - Discussed findings and plan with patient. Answered any questions. - All laboratory values were reviewed and interpreted personally by myself, the ER physician - All imaging was reviewed and interpreted personally by myself, the ER physician. - Evaluation and treatment of this problem were appropriate in the emergency setting Lab Data 12/26/23 10:38 12/26/23 10:38 Laboratory Results WBC 7.36 10^3/uL (3.29-11.43) 12/26/23 10:38 RBC 4.19 10^6/uL (3.85-5.65) 12/26/23 10:38 Hgb 12.90 g/dL (11.27-16.99) 12/26/23 10:38 Hct 40.4 % (36-47) 12/26/23 10:38 MCV 96.4 fl (85-98) 12/26/23 10:38 MCH 30.8 pg (27-33) 12/26/23 10:38 MCHC 31.9 g/dL (30-55) 12/26/23 10:38 RDW 12.5 % (12.1-15.1) 12/26/23 10:38 Plt Count 328 10^3/cmm (157-399) 12/26/23 10:38 MPV 8.5 fL (7.4-10.4) 12/26/23 10:38 Neut % (Auto) 50.8 % 12/26/23 10:38 Lymph % (Auto) 39.7 % 12/26/23 10:38 [place] % (Auto) 6.5 % 12/26/23 10:38 Eos % (Auto) 1.9 % 12/26/23 10:38 Baso % (Auto) 0.8 % 12/26/23 10:38 Neut # (Auto) 3.74 10^3/uL (1.8-7.7) 12/26/23 10:38 Lymph # (Auto) 2.9 10^3/uL (0.8-4.8) 12/26/23 10:38 [place] # (Auto) 0.5 10^3/uL (0.2-0.9) 12/26/23 10:38 Eos # (Auto) 0.1 10^3/uL (0.0-0.8) 12/26/23 10:38 Baso # (Auto) 0.1 10^3/uL (0.0-0.1) 12/26/23 10:38 Nucleated RBC % (auto) 0 % 12/26/23 10:38 Nucleated RBCs # 0.0 /100WBC 12/26/23 10:38 Sodium 134 mmol/L (136-145) L 12/26/23 10:38 Potassium 4.1 mmol/L (3.5-5.1) 12/26/23 10:38 Chloride 103 mmol/L (98-107) 12/26/23 10:38 Carbon Dioxide 19 mmol/L (22-29) L 12/26/23 10:38 Anion Gap 16.1 (5-19) 12/26/23 10:38 BUN 6 mg/dL (8-23) L 12/26/23 10:38 Creatinine 0.5 mg/dL (0.5-0.9) 12/26/23 10:38 GFR Calculation 123.8 mL/min (90-130) 12/26/23 10:38 Glucose 87 mg/dL (65-115) 12/26/23 10:38 Calculated Osmolality 275 mOsm/kg (285-295) L 12/26/23 10:38 Calcium 10.4 mg/dL (8.5-10.5) 12/26/23 10:38 Total Bilirubin 0.2 mg/dL (0.15-1.2) 12/26/23 10:38 AST 55 U/L (0-32) H 12/26/23 10:38 ALT 51 U/L (0-33) H 12/26/23 10:38 Alkaline Phosphatase 130 U/L (35-105) H 12/26/23 10:38 Creatine Kinase 83 U/L (26-192) 12/26/23 10:38 Total Protein 7.3 g/dL (6.6-8.7) 12/26/23 10:38 Albumin 4.1 g/dL (3.5-5.2) 12/26/23 10:38 Globulin 3.2 g/dL (1.3-4.6) 12/26/23 10:38 TSH 0.62 uIU/mL (0.27-4.20) 12/26/23 10:38 Urine Color Yellow (Yellow) 12/26/23 11:17 Urine Appearance Clear (CLEAR) 12/26/23 11:17 Urine pH 5 (5-7) 12/26/23 11:17 Ur Specific [place] 1.003 (1.005-1.030) L 12/26/23 11:17 Urine Protein Neg (Negative) 12/26/23 11:17 Urine Glucose (UA) Norm (Normal) 12/26/23 11:17 Urine Ketones Negative (Negative) 12/26/23 11:17 Urine Blood Neg (Negative) 12/26/23 11:17 Urine Nitrate Negative (Negative) 12/26/23 11:17 Urine Bilirubin Neg (Negative) 12/26/23 11:17 Urine Urobilinogen 0.2 mg/dL (Negative) 12/26/23 11:17 Ur Leukocyte Esterase Negative (Negative) 12/26/23 11:17 Urine RBC 0-2 /hpf (0-2) 12/26/23 11:17 Urine WBC 0-5 /hpf (0-5) 12/26/23 11:17 Ur Squamous Epith Cells 0-5 /hpf (0-5) 12/26/23 11:17 Amorphous Sediment Not Reportable 12/26/23 11:17 Urine Bacteria None seen /hpf (NONE) 12/26/23 11:17 Hyaline Casts 0.81 /lpf 12/26/23 11:17 Salicylates 0.5 mg/dL (3-10) L 12/26/23 10:38 Urine Opiates Screen Negative ng/mL (Negative) 12/26/23 11:17 Acetaminophen < 5.0 ug/mL (10-30) L 12/26/23 10:38 Ur Barbiturates Screen Negative ng/mL (Negative) 12/26/23 11:17 Ur Phencyclidine Scrn Negative ng/mL (Negative) 12/26/23 11:17 Ur Amphetamines Screen Negative ng/mL (Negative) 12/26/23 11:17 U Benzodiazepines Scrn Negative ng/mL (Negative) 12/26/23 11:17 Urine Cocaine Screen Negative ng/mL (Negative) 12/26/23 11:17 U Marijuana (THC) Screen Negative ng/mL (Negative) 12/26/23 11:17 Ethyl Alcohol 297 mg/dL (0-10) H 12/26/23 10:38 No radiology studies performed this visit Discharge Plan Discharge Patient Disposition: Home Clinical Impression: Alcoholic intoxication, Alcohol abuse Condition: Stable Prescriptions: No Action methylprednisolone [Medrol (Gustabo)] 4 mg tablets,dose pack See Rx Instructions PO PER PKG DIR Qty: 21 0RF Rx Instructions: PO PER PKG DIR azithromycin [Zithromax Z-Gustabo] 250 mg tablet See Rx Instructions PO .COMPLEX Qty: 6 0RF Rx Instructions: take 500 mg today (day 1), then 250 mg for 4 days (days 2-5) PO promethazine-DM 6.25-15 mg/5 mL syrup 5 ml PO Q6H PRN (Reason: cough) Qty: 160 0RF olmesartan [Benicar] 40 mg Tablet 40 mg PO DAILY@12 Vitamin B-1 (mononitrate) 100 mg Tablet 100 mg PO DAILY 30 Days Qty: 30 1RF Discharge Orders: Discharge ED (Routine); Ordered 12/26/23 Ordered By: Gayla Spicer Referrals: Nancy Richardson MD [Primary Care Provider] - Discharge Diet: Usual diet Discharge Activity: Increase activity as tolerated Patient Instructions: Abuse of Alcohol (ED) Activity Restrictions/Additional Instructions: Thank you for choosing [facility] for your healthcare needs today. Please realize this is an emergency room and that we are providing you with a medical screening exam and this may not be complete and all inclusive of all the testing and or work up that you may need to determine your ailment or severity of your illness. You have been screened and evaluated and felt safe for discharge. Health conditions do change or evolve sometimes and as such it is important that you follow up with your Primary Doctor to be re checked, 3-5 days is a general good time frame for follow up. You are always welcome to return to the ED for re assessment if your symptoms are worsening or you have new concerns Coding Level of Care Code ED Television Host for Dario Gilbert
[2023-12-26 10:43] LABS: Basophils # 0.1 10^3/uL (0.0-0.1); Basophils % 0.8 %; Eosinophils # 0.1 10^3/uL (0.0-0.8); Eosinophils % 1.9 %; Hematocrit 40.4 % (36-47); Lymphocytes # 2.9 10^3/uL (0.8-4.8); Lymphocytes % 39.7 %; Mean Corpuscular HGB Conc 31.9 g/dL (30-55); Mean Corpuscular Hemoglobin 30.8 pg (27-33); Mean Corpuscular Volume 96.4 fl (85-98); Mean Platelet Volume 8.5 fL (7.4-10.4); Monocytes # 0.5 10^3/uL (0.2-0.9); Monocytes % 6.5 %; Neutrophils # 3.74 10^3/uL (1.8-7.7); Neutrophils % 50.8 %; Nucleated Red Blood Cells % 0 %; Platelet Count 328 10^3/cmm (157-399); Red Blood Count 4.19 10^6/uL (3.85-5.65); Red Cell Distribution Width 12.5 % (12.1-15.1); White Blood Count 7.36 10^3/uL (3.29-11.43)
[2023-12-26] MEDS: sodium chloride 0.9% 1,000 ML 999 ML IV (10:56)
[2023-12-26 11:11] LABS: Alanine Aminotransferase 51 U/L (0-33); Albumin Level 4.1 g/dL (3.5-5.2); Alcohol Level 297 mg/dL (0-10); Alkaline Phosphatase 130 U/L (35-105); Aspartate Amino Transferase 55 U/L (0-32); Blood Urea Nitrogen 6 mg/dL (8-23); Calcium 10.4 mg/dL (8.5-10.5); Carbon Dioxide 19 mmol/L (22-29); Chloride 103 mmol/L (98-107); Creatine Phosphokinase 83 U/L (26-192); Creatinine Clr Calc Pharmacy 67.5715; Globulin 3.2 g/dL (1.3-4.6); Glomerular Filtration Rate 123.8 mL/min (90-130); Glucose 87 mg/dL (65-115); Osmolality Calculated 275 mOsm/kg (285-295); Salicylate 0.5 mg/dL (3-10); Sodium 134 mmol/L (136-145); Thyroid Stimulating Hormone 0.62 uIU/mL (0.27-4.20); Total Bilirubin 0.2 mg/dL (0.15-1.2); Total Protein 7.3 g/dL (6.6-8.7)
[2023-12-26 11:15] LABS: Acetaminophen < 5.0 ug/mL (10-30); Anion Gap 16.1 (5-19); Potassium 4.1 mmol/L (3.5-5.1)
[2023-12-26 11:37] LABS: Bacteria Urine None Seen /hpf; Hyaline Casts Urine 0.81 /lpf; RBC Urine 0-2 /hpf (0-2); Squamous Epithelial Cell Urine 0-5 /hpf (0-5); WBC Urine 0-5 /hpf (0-5)
[2023-12-26 11:40] LABS: Glucose Urine UA Norm (Normal); Ketones Urine Negative (Negative); Protein Urine Neg (Negative); Specific Gravity, Urine 1.003 (1.005-1.030); Urine Appearance Clear (CLEAR); Urine Color Yellow (Yellow); pH Urine 5 (5-7)
[2023-12-26 11:41] LABS: Bilirubin Urine Neg (Negative); Blood Urine Neg (Negative); Leukocyte Esterase Urine Negative (Negative); Nitrate Urine Negative (Negative); Urobilinogen Urine 0.2 mg/dL (Negative)
[2023-12-26 11:42] LABS: Amphetamines Screen Urine Negative (Negative); Barbiturates Screen Urine Negative (Negative); Benzodiazepines Screen Urine Negative (Negative); Cocaine Screen Urine Negative (Negative); Opiate Screen Urine Negative (Negative); PCP Screen Urine Negative (Negative); THC Screen Urine Negative (Negative)
[2023-12-26 12:02] VITALS: BP 93/70; PULSE 73; O2SAT 95
[2023-12-26 16:02] VITALS: BP 94/63; PULSE 78; O2SAT 92
== END 2023-12-26 16:06 | disposition home or self-care (01) ==
PROVIDERS: Emergency Provider Emergency Medicine; PCP Family Medicine
DX: F10.129 Alcohol abuse with intoxication, unspecified (principal); Y90.8 Blood alcohol level of 240 mg/100 ml or more
CPT/HCPCS: 36415; 80053; 80306; 80307; 81001; 82550; 84443; 85025; 93005; 99284; J7030

== ENCOUNTER 2024-03-08 08:55 | Outpatient (CLI) | payer MEDICARE, MEDICAID, SELFPAY ==
--- NOTE | 2024-03-08 09:00 | MM_ITS ---
WS: [id number] VIEWS: MLO and CC views both breasts. 3D digital tomosynthesis is also included in this exam. Comparison made with prior exam of 09/25/2006, 02/07/2013,. Findings: The breasts are extremely dense, which lowers the sensitivity of mammography. No sign of suspicious mass, tumor calcification or architectural distortion. MM/MM scr BI tomosynthesis [id number] Impression: BI-RADS: 2 - Benign FOLLOW-UP: 1 Year Follow-up This mammogram was also analyzed by the Computer Aided Detection System R2 Imag e Foster Care Social Worker.
== END 2024-03-08 08:56 | disposition home or self-care (01) ==
LOC: MOBLMAM 09:02
PROVIDERS: PCP Nurse Practitioner Family; Visit Provider Nurse Practitioner Family
DX: Z12.31 Encounter for screening mammogram for malignant neoplasm of breast (principal); R92.333 Mammographic heterogeneous density, bilateral breasts
CPT/HCPCS: 77063; 77067

== ENCOUNTER → 2024-11-16 11:53 | Outpatient (BNVA) | payer MEDICARE, MEDICAID, SELFPAY | PROVIDERS: PCP Nurse Practitioner Family; Visit Provider Nurse Practitioner Family | DX: M25.561 Pain in right knee (principal) | CPT/HCPCS: 73562 ==

== ENCOUNTER → 2024-12-06 15:05 | Outpatient (BNVA) | payer MEDICARE, MEDICAID, SELFPAY | PROVIDERS: PCP Nurse Practitioner Family; Visit Provider Nurse Practitioner Family | DX: M25.562 Pain in left knee (principal) | CPT/HCPCS: 73562; 80053; 80061; 82306; 83036 ==